=== PATIENT | male | born 1950 | race Caucasian/White ===

== ENCOUNTER 2017-09-21 02:58 | Emergency (ER) | payer MEDICARE, OTHER, SELFPAY ==
[2017-09-21 03:00] VITALS: BP 172/102; PULSE 78; RESP 18; TEMP 36.7; O2SAT 97; BMI 32.7
--- NOTE | 2017-09-21 03:20 | RAD_ITS ---
STUDY: X-RAY - RIGHT SHOULDER REASON FOR EXAM: Male, 67 years old. Upper arm pain after pulling on a door. TECHNIQUE: 4 view(s) of the shoulder. COMPARISON: None. FINDINGS: Normal glenohumeral articulation. There is possible minimal widening of the cortical clavicular joint without displacement Normal acromion. Normal humeral head and visualized proximal humerus. The soft tissue structures are unremarkable. Normal visualized pulmonary apex. RAD/Shoulder min 2 Views IMPRESSION: No demonstrated acute fracture. Questionable minimal widening of the acromioclavicular joint. Electronically Signed: Jass Coleman MD at 3:47 EDT Tel , Service support ,
[2017-09-21] MEDS: oxyCODONE 5 MG Tablet PO (04:06)
--- NOTE | 2017-09-21 04:17 | ED.DCSUM_ITS ---
- ER Visit Summary Date of Service: 09/21/17 Chief Complaint: Right shoulder injury History of Present Illness: The patient is a 67 M right shoulder injury 2 days ago. States was holding onto his tractor is trying to close the door with his left arm. [place] a pull in his shoulder. Increasing pain, worse with movement. Pain down to the elbow. No neck pain or injuries. History of slight injury a month ago that was self-limiting. Using Advil, last dose 8 PM. No improvement. No history of gastric ulcers or kidney injuries. Does not take any daily medications. Physical Examination: General: Alert and oriented ?3, no acute distress HEENT: Normocephalic, atraumatic. Moist mucosa membranes Neck: supple, nontender. Negative Spurling's Cardiovascular: Regular rate and rhythm, no murmurs Respiratory: Normal breath sounds, symmetric, no distress Abdomen: Soft, nontender, nondistended Extremities: Right upper extremity: Tenderness in proximal shoulder, pain worse with shoulder flexion and shoulder abduction. Able to internally and externally rotate with no difficulties. No deformities. No elbow pain. Skin intact. No AC pain. Neuro: no focal neurological deficits. Test Results: Right shoulder: No fracture or dislocation. Emergency Department Course and Treatment: Patient discomfort, given oxycodone. X-ray negative. Per radiology concerns widening AC joint region, he is nontender in this region. Exam discussed with patient concerns for rotator cuff injury. Exercises shown to help with rehab. He will continue Advil every 6 hours. He will be given a short course of Percocet to take at night. He is not to operate heavy machinery while on this medication. He is also given follow-up with orthopedics for outpatient evaluation. Treatment Plan: [] Disposition: Discharge Impression: 1. Right rotator cuff muscle strain This note was generated with [employer] dictation software. It may contain incorrect words, spelling, and punctuation that were not noted in review of the chart prior to signing ED Disposition - Plan for ED Patient: Disposition: Home or Assisted Living Chief Complaint: Upper Extremity Injury Diagnosis: Rotator cuff strain Instructions: ED Torn Rotator Cuff Prescriptions: Oxycodone HCl/Acetaminophen [Percocet 5/325] 1 tablet PO Q6H PRN PRN 3 Days #12 tablet PRN Reason: Pain Referrals: Celestino Gutierres [Primary Care Provider] - Alessandro Flood MD [STAFF PHYSICIAN] - 3-5 Days
[2017-09-21 04:24] VITALS: RESP 18
== END 2017-09-21 04:25 | disposition home or self-care (01) ==
PROVIDERS: Emergency Provider Emergency Medicine; Family Provider Family Medicine; PCP Family Medicine
DX: S46.011A Strain of muscle(s) and tendon(s) of the rotator cuff of right shoulder, initial encounter (principal); X50.1XXA Overexertion from prolonged static or awkward postures, initial encounter; Y93.89 Activity, other specified; Y92.008 Other place in unspecified non-institutional (private) residence as the place of occurrence of the external cause; Y99.8 Other external cause status
CPT/HCPCS: 73030; 99283

== ENCOUNTER → 2020-09-02 08:19 | Outpatient (CLI) | payer MEDICARE, OTHER, SELFPAY ==
--- NOTE | 2020-09-02 08:25 | RAD_ITS ---
STUDY: X-RAY - ESOPHAGUS (BARIUM SWALLOW) WITH FLUOROSCOPY REASON FOR EXAM: Male, 70 years old. DYSPHAGIA TECHNIQUE: 16 view(s) of the esophagus were obtained following swallowing of barium. FLUOROSCOPY TIME (if supplied): (0:36) minutes/seconds COMPARISON: None. FINDINGS: There is no demonstrated esophageal foreign body. There is no demonstrated stricture or mucosal abnormality. Small hiatal hernia with gastroesophageal reflux. The patient ingested a 12 mm tablet of barium without any difficulty. There is atherosclerotic calcification of the aortic arch with tortuosity of the descending aorta. Normal visualized pulmonary parenchyma. Normal visualized osseous structures of the thorax. RAD/Esophagus Dual Contrast IMPRESSION: Small hiatal hernia with gastroesophageal reflux. Electronically Signed: Blaise Stein MD at 9:56 EDT , Service support ,
== END ==
PROVIDERS: PCP Family Medicine; Referring Provider Internal Medicine Gastroenterology; Visit Provider Internal Medicine Gastroenterology
DX: R13.10 Dysphagia, unspecified (principal)
CPT/HCPCS: 74221

== ENCOUNTER → 2021-03-31 08:41 | Outpatient (CLI) | payer MEDICARE, OTHER, SELFPAY ==
--- NOTE | 2021-03-31 08:43 | RDU_ITS ---
Reason For Study: HTN Right Renal Artery Left Renal Artery Right renal artery ostium 80.9/21.3 Left renal artery ostium 73.1/16.1 RSV/EDV. PSV/EDV. Right renal artery proximal Left renal artery proximal PSV/EDV 80.9/26.4 PSV/EDV. 78.2/18.7 . Right renal artery mid 86.0/29.0 Left renal artery mid 66.1/27.8 PSV/EDV. PSV/EDV . Right renal artery distal Left renal artery distal 73.4/27.8 114.5/37.7 PSV/EDV. PSV/EDV. Right RAR 1.2. Left RAR .8. Right Renal Parenchyma Left Renal Parenchyma Upper Pole Medula 29.9/12.3 Left upper pole medulla 23.2/10.1 PSV/EDV. PSV/EDV . Right upper pole medulla EDR .41 . Left upper pole medulla EDR .43 . Right upper pole medulla R.I. .59 . Left upper pole medulla R.I. .57 . Upper Homar Cortx 23.3/6.8 PSV/EDV. UP Cortex 15.7/7.5 PSV/EDV. Right upper pole cortex EDR .29 . Left upper pole cortex EDR .48 . Right upper pole cortex R.I. .71 . Left upper pole cortex R.I. .52 . Right lower Pole medulla 20.0/7.9 Left lower Pole medulla 23.0/7.5 PSV/EDV . PSV/EDV . Right lower pole medulla EDR .4 . Left lower pole medulla EDR .33 . Right lower pole medulla R.I. .6 . Left lower pole medulla R.I. .67 . Lower Pole Cortex 15.6/6.8 PSV/EDV. Lower Pole Cortx 15.7/7.5 PSV/EDV. Right lower pole cortex EDR .44 . Left lower pole cortex EDR .48 . Right lower pole cortex R.I. .56 . Left lower pole cortex R.I. .52 . Right Renal Hilar Left Renal Hilar Right Hilar avg 50.7/15.6 PSV/EDV. LT Hilar avg 35.8/16.6 PSV/EDV . Right hilar acceleration time 50 Left hilar acceleration time 30 m/sec. m/sec. Right Renal Dimensions Left Renal Dimensions Right kidney size 11.34 cm . Left kidney size 12.5 cm . Right cortical dimension 1.83 cm . Left cortical dimension 1.86 cm . Hypoechoic areas measuring 1.46 x Hypoechoic area measuring 3.26 x 1.94 cm and a second area measuring 2.58 cm. Area appears to be 2.81 x 2.2cm. Areas appear to be nonvascular. nonvascular. Aorta Proximal abdominal aorta 1.82 x 1.82 cm . Proximal abdominal aorta peak systolic velocity is 94.8 cm/sec . Distal abdominal aorta 1.54 x 1.64 cm . Distal abdominal aorta peak systolic velocity is 90.4 cm/sec . Normal renal veins bilat. VL/Renal Artery Duplex Ultrasound Interpretation Summary Dimensions of the intra-abdominal aorta appear normal, without evidence of aneu rysmal dilatation. Renal artery velocities are bilaterally normal. Acceleration times are normal b ilaterally. Renal- aortic ratios are also bilaterally normal. There is no evidence of hemodynamica lly significant renal artery stenosis on either side. Renovascular resistance appears to be bilateral ly normal . The right cortical dimension is increased. The left cortical dimension is increased. Kidn eys are normal in size bilaterally, though the left kidney is more than one centimeter larger lily n the right kidney. Non-vascular, hypoechoic structures are noted in the kidneys bilaerally, with d imensions as documented above. These may represent renal cysts. Clinical correlation is advi sed. Ordering Physician: Celestino Gutierres Performed By: Moises Gordon, RVT
== END ==
PROVIDERS: PCP Family Medicine; Visit Provider Family Medicine
DX: I10 Essential (primary) hypertension (principal)
CPT/HCPCS: 93975

== ENCOUNTER → 2021-05-25 07:44 | Outpatient (CLI) | payer MEDICARE, OTHER, SELFPAY ==
--- NOTE | 2021-05-25 07:48 | CT_ITS ---
STUDY: CT LEFT LOWER EXTREMITY WITHOUT CONTRAST REASON FOR EXAM: Left knee pain, left knee osteoarthritis, surgical planning. TECHNIQUE: Transaxial CT imaging of the lower extremity was performed. Coronal and sagittal images were reformatted. Individualized dose optimization techniques were used for this CT. COMPARISON: None. FINDINGS: Knee: There are marginal osteophytes, mild subchondral eburnation and moderate to severe joint space narrowing of the medial femorotibial compartment (coronal reconstruction 28). There are small marginal osteophytes of the lateral femorotibial compartment with preservation of joint space. There are small marginal osteophytes and mild to moderate joint space narrowing of the patellofemoral articulation (axial image 323). There is mild arthrosis of the proximal tibiofibular articulation (sagittal reconstruction 51). There is a small joint effusion. The quadriceps tendon is grossly normal. The patellar tendon is grossly normal. Normal Hoffa''s fat pad. There is a popliteal cyst (sagittal reconstruction 20). There are intra-articular bodies (coronal reconstructions 21, 22, 34-39). There is vascular calcification. Hip: There is joint space narrowing of the superior medial left hip (coronal reconstruction 48). There is chondrocalcinosis in the labrum (coronal reconstructions 45-51). Ankle: Normal tibiotalar and posterior subtalar articulations. There is a posterior calcaneal enthesophyte. CT/Extremity Lower without Contra IMPRESSION: Left knee osteoarthritis. Electronically Signed: Axel Palacio MD at 14:49 EST Tel , Service support ,
--- NOTE | 2021-05-25 07:48 | CT_ITS ---
STUDY: CT RIGHT LOWER EXTREMITY WITHOUT CONTRAST REASON FOR EXAM: Right knee pain, right knee osteoarthritis, surgical planning. TECHNIQUE: Transaxial CT imaging of the lower extremity was performed. Coronal and sagittal images were reformatted. Individualized dose optimization techniques were used for this CT. COMPARISON: None. FINDINGS: Knee: There are marginal osteophytes, mild pressure erosive changes and severe joint space narrowing of the medial femorotibial compartment (coronal reconstruction 34). There are small marginal osteophytes with preservation of joint space of the lateral femorotibial compartment. There are marginal osteophytes and [id number] joint space narrowing of the patellofemoral compartment (axial image 317). Normal proximal tibiofibular articulation. There is a small joint effusion. The quadriceps tendon is grossly normal. The patellar tendon is grossly normal. Normal Hoffa''s fat pad. There are intra-articular bodies (sagittal reconstructions 27-32, 37-46). There is vascular calcification. Hip: There is mild joint space narrowing of the right hip (coronal reconstruction 56). Ankle: There is an osteochondral lesion in the medial talar dome (coronal reconstructions 29-31). Normal posterior subtalar talonavicular articulations. There is a small posterior calcaneal enthesophyte. CT/Extremity Lower without Contra IMPRESSION: Right knee osteoarthritis. Electronically Signed: Axel Palacio MD at 14:48 EST Tel , Service support ,
[2021-05-25 09:54] LABS: Absolute Neutrophil Count 4.6 X10^3/uL (2.0-7.7); Basophil# 0.05 X10^3/uL; Basophil% 0.7 % (0-1); Eosinophil# 0.08 X10^3/uL; Eosinophils% 1.1 % (0-5); Hematocrit 45.3 % (40-54); Lymphocyte % 24.3 % (19-41); Mean Corp Hgb Conc 33.1 g/dL (32-36); Mean Corpuscular Hgb 31.5 pg (27.0-32.0); Mean Corpuscular Volume 95.2 fL (80-94); Mean Platelet Vol. 9.1 fl (6.2-12.0); Monocyte# 0.53 X10^3/uL; Monocyte% 7.6 % (0-10); NRBC Flagged by Analyzer 0 % (0-5); Neutrophil # 4.64 X10^3/uL (2.7-7.7); Neutrophil % 66.2 % (47-70); Platelet Count 259 K/mm3 (150-450); RBC Distribution Width CV 13.1 % (11.6-14.6); RBC Distribution Width SD 46.3 fl (35.1-43.9); Red Blood Count 4.76 M/mm3 (4.6-6.2)
[2021-05-25 10:18] LABS: Hemoglobin A1c 5.4 % (3.8-5.6)
[2021-05-25 10:22] LABS: Anion Gap 6 (5-15); BUN 26 mg/dL (7-18); BUN/Creat Ratio 20.6 RATIO (10-20); Chloride 106 mmol/L (98-107); Creatinine, Serum 1.26 mg/dL (0.70-1.30); EST Glomerular Filtration Rate 60 mL/min (>60); Est Glom Filt Rate - Afr Amer 73 mL/min (>60); Glucose 91 mg/dL (74-106); Potassium 4.5 mmol/L (3.5-5.1); Sodium Level 138 mmol/L (136-145)
[2021-05-25 14:02] LABS: Probe Check PASS; Specimen Processing Control PASS
== END ==
PROVIDERS: PCP Family Medicine; Referring Provider Orthopaedic Surgery; Visit Provider Orthopaedic Surgery
DX: Z01.810 Encounter for preprocedural cardiovascular examination (principal); M21.162 Varus deformity, not elsewhere classified, left knee; M21.161 Varus deformity, not elsewhere classified, right knee; M17.0 Bilateral primary osteoarthritis of knee
CPT/HCPCS: 36415; 73700; 80048; 83036; 85025; 87635; 93005; C9803; U0005; U0003

== ENCOUNTER → 2021-06-08 | Outpatient (CLI) | payer MEDICARE, OTHER, SELFPAY ==
--- NOTE | 2021-06-08 11:00 | KNEE_PTH ---
PATIENT: BRANDO ABRAMS [facility] U#:[id number] AGE/SX: 70/M ROOM: RE06/08/[address]: Dr. Silvestre Minaya DO : 1950 BED: DIS: 06/08/2021 SPEC #: [id number] RECD: 06/08/21 15:08 STATUS: CHARANJIT REGuerita #: [id number] LILIA: 06/08/21 11:[address]: Silvestre Minaya DEPT: SURGICAL PATHOLOGY RECD BY: Soni Allison ENTERED: 06/09/21 12:44 SP TYPE: TOTAL KNEE OTHR DR: Dr. Celestino Gutierres, [facility] Tissues: Knee, NOS Procedures: Decalcification bone/plaque Surgery Specimen Level IV HEADER OPERATION: Robotic assisted right total knee PRE-OP DIAGNOSIS: Unilateral primary osteoarthritis TISSUE SUBMITTED: Bone and soft tissue right knee MICROSCOPIC DIAGNOSIS Bone and soft tissue, right knee, total knee replacement/resection: Pieces of bone with degenerative osteoarthritic changes. Fibroadipose tissue, fibroconnective tissue and reactive synovial tissue. ZACHARY:rod 06/15/2021 MICROSCOPIC DESCRIPTION Slides are reviewed. GROSS DESCRIPTION Received is one container designated bone and soft tissue right knee. The specimen consists of multiple fragments of huynh-yellow bone measuring in aggregate 11 x 10 x 4 cm. Also in the specimen container are multiple fragments of yellow-white soft tissue measuring in aggregate 10 x 9 x 4 cm. A number of bony fragments contain articular surfaces consistent with tibial plateau and femoral condyle and displaying prominent osteophyte formation, eburnation, and bone erosion. Airbrush Artist Photography sections are submitted in two cassettes as follows: 1 - soft tissue, 2 - bone after decalcification. / ZACHARY:rod 06/09/21 TC:5 [facility]: [id number], [id number]
== END | disposition home or self-care (01) ==
LOC: LABSPEC 15:36
PROVIDERS: PCP Family Medicine; Visit Provider Orthopaedic Surgery
DX: M17.11 Unilateral primary osteoarthritis, right knee (principal)
CPT/HCPCS: 88305; 88311

== ENCOUNTER 2021-07-11 11:59 | Outpatient (CLI) | payer MEDICARE, OTHER, SELFPAY ==
[2021-07-11 14:09] LABS: Hemoglobin 13.5 g/dL (13.0-16.5); Mean Corp Hgb Conc 32.1 g/dL (32-36); Mean Corpuscular Hgb 30.7 pg (27.0-32.0); Mean Corpuscular Volume 95.5 fL (80-94); Mean Platelet Vol. 9.4 fl (6.2-12.0); Platelet Count 312 K/mm3 (150-450); RBC Distribution Width CV 13.6 % (11.6-14.6); RBC Distribution Width SD 47.8 fl (35.1-43.9); White Blood Count 8.6 K/mm3 (4.4-11.0)
[2021-07-11 14:32] LABS: Anion Gap 6 (5-15); BUN 22 mg/dL (7-18); BUN/Creat Ratio 13.7 RATIO (10-20); Calcium,Total 8.8 mg/dL (8.5-10.1); Chloride 108 mmol/L (98-107); Creatinine, Serum 1.61 mg/dL (0.70-1.30); EST Glomerular Filtration Rate 46 mL/min (>60); Est Glom Filt Rate - Afr Amer 55 mL/min (>60); Glucose 155 mg/dL (74-106); Potassium 4.1 mmol/L (3.5-5.1); Sodium Level 140 mmol/L (136-145)
[2021-07-11 14:37] LABS: Hemoglobin A1c 5.4 % (3.8-5.6)
== END 2021-07-11 23:59 | disposition short-term general hospital (02) ==
LOC: LAB 12:02
PROVIDERS: Physician Assistant; PCP Family Medicine; Visit Provider Orthopaedic Surgery
DX: Z01.818 Encounter for other preprocedural examination (principal); R73.03 Prediabetes
CPT/HCPCS: 36415; 80048; 83036; 85027

== ENCOUNTER 2021-07-20 15:19 | Outpatient (CLI) | payer MEDICARE, OTHER, SELFPAY ==
--- NOTE | 2021-07-20 | KNEE_PTH ---
PATIENT: BRANDO ABRAMS LOC: [facility] U#:[id number] AGE/SX: 70/M ROOM: RE07/20/[address]: Dr. Silvestre Minaya DO : 1950 BED: DIS: 07/20/2021 SPEC #: [id number] RECD: 07/20/21 15:17 STATUS: CHARANJIT REGuerita #: [id number] LILIA: 07/20/21 00:[address]: Silvestre Minaya DEPT: SURGICAL PATHOLOGY RECD BY: Moses Keller ENTERED: 07/21/21 11:00 SP TYPE: TOTAL KNEE OTHR DR: Dr. Celestino Gutierres, [facility] Tissues: Knee, NOS Procedures: Decalcification bone/plaque Surgery Specimen Level IV HEADER OPERATION: Robotic assisted left total knee arthroplasty PRE-OP DIAGNOSIS: Primary osteoarthritis left knee TISSUE SUBMITTED: Bone and soft tissue left knee MICROSCOPIC DIAGNOSIS Bone and soft tissue, left knee, total knee replacement/resection: Pieces of bone with degenerative osteoarthritic changes. Fibroadipose tissue, fibroconnective tissue and reactive synovial tissue. ZACHARY:rod 07/25/2021 MICROSCOPIC DESCRIPTION Slides are reviewed. GROSS DESCRIPTION Received is one container designated bone and soft tissue left knee. The specimen consists of multiple fragments of huynh-yellow bone measuring in aggregate 10 x 9 x 3 cm. Also in the specimen container are multiple fragments of yellow-white soft tissue measuring in aggregate 11 x 8 x 3 cm. A number of bony fragments contain articular surfaces consistent with tibial plateau and femoral condyle and displaying prominent osteophyte formation, eburnation, and bone erosion. Field Applications Specialist sections are submitted in two cassettes as follows: 1 - soft tissue, 2 - bone after decalcification. / ZACHARY:rod 07/21/2021 TC:5 [facility]: [id number], [id number]
== END 2021-07-20 23:59 | disposition home or self-care (01) ==
LOC: LABSPEC 15:21
PROVIDERS: PCP Family Medicine; Visit Provider Orthopaedic Surgery
DX: M17.12 Unilateral primary osteoarthritis, left knee (principal)
CPT/HCPCS: 88305; 88311

== ENCOUNTER 2021-09-29 09:50 | Outpatient (CLI) | payer MEDICARE, OTHER, SELFPAY ==
--- NOTE | 2021-09-29 10:06 | ECHOD_ITS ---
Reason For Study: PVC'S Procedure This was a 2D Doppler, Color Flow transthoracic echocardiogram. Exam performed in department. Left Ventricle Normal LV size. The estimated ejection fraction is 65 %. No evidence for diastolic dysfunction. No regional wall motion abnormalities noted. Right Ventricle Normal RV size. Normal systolic function. Atria Normal left atrium. Normal right atrium. No doppler evidence for ASD. Mitral Valve There is no mitral valve stenosis. No mitral valve insufficiency. Tricuspid Valve There is no tricuspid stenosis. Unable to estimate RV systolic pressure due to inadequate jet, pulmonary artery pressure probably normal. Aortic Valve Trisinus/trileaflet aortic valve. There is no aortic stenosis. No aortic valve insufficiency. Pulmonic Valve There is no pulmonic valvular stenosis. No pulmonic valve insufficiency. Great Vessels Normal aortic root. Pericardium/Pleural No pericardial effusion. MMode/2D Measurements & Calculations LVIDd: 4.5 cm IVSd: 0.81 cm Ao root diam: 3.3 cm LVIDs: 3.1 cm LVPWd: 0.99 cm RVDd: 3.8 cm FS: 31.4 % LAV(MOD-bp): 46.2 ml LVAd ap4: 39.9 cm2 SV(MOD-sp4): 86.1 ml LAV(MOD-bp) Indexed: 21.4 ml/m2 LVLd ap4: 9.1 cm LAV(MOD-sp2): 47.5 ml EDV(MOD-sp4): 144.1 ml LAV(MOD-sp4): 42.1 ml EDV(sp4-el): 148.6 ml LVAs ap4: 22.6 cm2 LVLs ap4: 7.4 cm ESV(MOD-sp4): 58.1 ml ESV(sp4-el): 58.5 ml EF(MOD-sp4): 59.7 % EF(sp4-el): 60.6 % SV(sp4-el): 90.1 ml LA A4 area: 17.4 cm2 LA dimension(2D): 3.5 cm RA A4 area: 13.9 cm2 Time Measurements MV dec time: 0.28 sec Doppler Measurements & Calculations MV E max daniel: 77.0 cm/sec Lat Peak E' Daniel: 9.8 cm/sec Med Peak E' Daniel: 6.3 cm/sec MV A max daniel: 108.1 cm/sec E/E' lat: 7.9 E/E' med: 12.3 MV E/A: 0.71 Ao V2 max: 155.8 cm/sec LV V1 max: 136.9 cm/sec PA V2 max: 109.5 cm/sec Ao max P.7 mmHg LV V1 max P.5 mmHg ECHO/Echo Complete Interpretation Summary The estimated ejection fraction is 65 %. No evidence for diastolic dysfunction. Ordering Physician: Celestino Khanna Referring Physician: CELESTINO KHANNA Performed By: Maddi Cherry RDCS
== END 2021-09-29 23:59 | disposition home or self-care (01) ==
PROVIDERS: PCP Family Medicine; Visit Provider Family Medicine
DX: I49.3 Ventricular premature depolarization (principal)
CPT/HCPCS: 93306

== ENCOUNTER 2025-01-19 05:54 | Day surgery (SDC) | payer MEDICARE, OTHER, SELFPAY ==
--- NOTE | 2025-01-05 16:31 | PAT.ANE_ITS ---
Pre-Assessment Diagnosis/Proposed Procedure Planned Operative Procedure(s): ROBOTIC BILATERAL INGUINAL HERNIA WITH MESH Anesthesia History Anesthesia History - qi specialist: Anesthesia History - qi specialist Hx Hospitalization No 01/05/25 13:09 Any Problems With Anesthesia No 01/05/25 13:09 Cholinesterase deficiency No 01/05/25 13:09 You/Your Family Experience No 01/05/25 13:09 fever (hyperthermia) with Relationship Recent Exposure to Contagious Disease Does patient have nerve No 01/05/25 13:09 stimulator Patient instructed to have device shut off --Does patient have Pacemaker or ICD? When Was Last Pacemaker Check QUESTION #4 FULL TEXT: You/Your Family Experience fever (hyperthermia) with Anesthesia Last Oral Intake Last Oral intake: Last Oral Intake NPO since Meds taken in AM with sips of water? Meds patient instructed to take am of surgery PONV PONV - qi specialist: PONV - qi specialist Female No 01/05/25 13:09 HX of Motion Sickness No 01/05/25 13:09 HX of N/V After Surgery No 01/05/25 13:09 Non-Smoker Yes 01/05/25 13:09 Duration of Surgery greater Yes 01/05/25 13:09 than 60 minutes Number of Risk Factors 2 01/05/25 13:09 PONV Score Moderate Risk 01/05/25 13:09 Height & Weight Height & Weight: Anesthesia: Height & Weight Height 6 ft 10/21/24 09:13 Respiratory Assessment Respiratory Assessment - qi specialist: Respiratory Tract Infection Hx - qi specialist Hx Respiratory Tract Infection No 01/05/25 13:09 STOP Sleep Apnea STOP Sleep Apnea - qi specialist: STOP Sleep Apnea - qi specialist Hx Hypertension Yes: CONTROLLED WITH MEDS 01/05/25 13:09 Hx Sleep Apnea Yes 01/05/25 13:09 CPAP Yes 01/05/25 13:09 BIPAP No 01/05/25 13:09 Do you snore loudly (louder than talking or can be heard Do you often feel tired/ fatigued/ sleepy during daytime? Has anyone observed you stop breathing during sleep? STOP Results Positive 01/05/25 13:09 QUESTION #5 FULL TEXT : Do you snore loudly (louder than talking or can be heard through closed doors)? Tobacco Use History Tobacco Use History - qi specialist: Tobacco Use History - qi specialist Tobacco Use Smoking Status Never smoker 01/05/25 13:09 Hx Tobacco Use No 01/05/25 13:09 Years Smoking Packs Smoked per Day Smoking Cessation Date was within the last 15 years Hx Smoking Cessation Date Hx Smoking Cessation Counseling Hematologic Medial History Hematologic Hx - qi specialist: Hematologic Medical Hx - forest economist Hx of Blood Transfusion No 01/05/25 13:09 Hx of Transfusion in last 3 No 01/05/25 13:09 Months Date of Last Transfusion (if within last 3 months) Ever experience any problems No 01/05/25 13:09 with transfusion(s)? Specify any problems Hx of Preganancy in last 3 N/A 01/05/25 13:09 Months Nurse Filling Out Transfusion [id number] 01/05/25 13:09 & Questions: Date: 01/05/25 01/05/25 13:09 Time: 13:13 01/05/25 13:09 Patient unable to answer at this time (ie. confused, unrespo /Reproduction History /Reproductive History - qi specialist: /Reproductive Hx- qi specialist Hx Now Gestational Age (in weeks): EDC: Hx Hx Para Hx Section SAB PFSH Medical History (Updated 01/05/25 @ 13:16 by Floyd Salinas) Wears glasses Injury of head and neck Hypertension History of echocardiogram Gastric reflux Smoker Non-smoker CPAP (continuous positive airway pressure) dependence Sleep apnea Bilateral inguinal hernia without obstruction or gangrene Left inguinal hernia Home Medications ?Medication ?Instructions ?Recorded ?Last Taken ?Type amlodipine 10 mg tablet 10 mg PO QDAY 10/21/24 Unkno wn History metoprolol succinate 50 mg 50 mg PO QDAY 10/21/24 Unkn own History tablet,extended release 24 hr pantoprazole 40 mg tablet,delayed 40 mg PO QDAY Unknown History release Allergy/AdvReac Type Severity Reaction Status Date / Time No Known Allergies Allergy Verified 01/05/25 13:08 Surgical History H/O umbilical hernia repair Social History Smoking Status: Never smoker alcohol intake: never substance use type: does not use Audit: Pertinent Findings Pertinent Findings Echo (EF%) pertinent findings: 09/29/2021. Ejection fraction 65%. No evidence for diastolic dysfunction. Recommendation Anesthesia Recommendation Anesthesia recommendation: OPTIMIZED for anesthesia
--- NOTE | 2025-01-05 16:31 | PAT.ANE_ITS ---
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 When Was Last Pacemaker Check QUESTION #4 FULL TEXT: You/Your Family Experience fever (hyperthermia) with Anesthesia Last Oral Intake Last Oral intake: Last Oral Intake NPO since Meds taken in AM with sips of water? Meds patient instructed to take am of surgery PONV PONV - mattress stripper: PONV - mattress stripper Female No 01/05/25 13:09 HX of Motion Sickness No 01/05/25 13:09 HX of N/V After Surgery No 01/05/25 13:09 Non-Smoker Yes 01/05/25 13:09 Duration of Surgery greater Yes 01/05/25 13:09 than 60 minutes Number of Risk Factors 2 01/05/25 13:09 PONV Score Moderate Risk 01/05/25 13:09 Height & Weight Height & Weight: Anesthesia: Height & Weight Height 6 ft 10/21/24 09:13 Respiratory Assessment Respiratory Assessment - mattress stripper: Respiratory Tract Infection Hx - mattress stripper Hx Respiratory Tract Infection No 01/05/25 13:09 STOP Sleep Apnea STOP Sleep Apnea - mattress stripper: STOP Sleep Apnea - mattress stripper Hx Hypertension Yes: CONTROLLED WITH MEDS 01/05/25 13:09 Hx Sleep Apnea Yes 01/05/25 13:09 CPAP Yes 01/05/25 13:09 BIPAP No 01/05/25 13:09 Do you snore loudly (louder than talking or can be heard Do you often feel tired/ fatigued/ sleepy during daytime? Has anyone observed you stop breathing during sleep? STOP Results Positive 01/05/25 13:09 QUESTION #5 FULL TEXT : Do you snore loudly (louder than talking or can be heard through closed doors)? 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 Specify any problems Hx of Preganancy in last 3 N/A 01/05/25 13:09 Months Nurse Filling Out Transfusion [email or web address] 01/05/25 13:09 & Questions: Date: 01/05/25 01/05/25 13:09 Time: 13:13 01/05/25 13:09 Patient unable to answer at this time (ie. confused, unrespo /Reproduction History /Reproductive History - mattress stripper: /Reproductive Hx- mattress stripper Hx Now Gestational Age (in weeks): EDC: Hx Hx Para Hx Section SAB PFSH Medical History (Updated 01/05/25 @ 13:16 by Floyd Salinas) Wears glasses Injury of head and neck Hypertension History of echocardiogram Gastric reflux Smoker Non-smoker CPAP (continuous positive airway pressure) dependence Sleep apnea Bilateral inguinal hernia without obstruction or gangrene Left inguinal hernia Home Medications ?Medication ?Instructions ?Recorded ?Last Taken ?Type amlodipine 10 mg tablet 10 mg PO QDAY 10/21/24 Unkno wn History metoprolol succinate 50 mg 50 mg PO QDAY 10/21/24 Unkn own History tablet,extended release 24 hr pantoprazole 40 mg tablet,delayed 40 mg PO QDAY Unknown History release Allergy/AdvReac Type Severity Reaction Status Date / Time No Known Allergies Allergy Verified 01/05/25 13:08 Surgical History H/O umbilical hernia repair Social History Smoking Status: Never smoker alcohol intake: never substance use type: does not use Audit: Pertinent Findings Pertinent Findings Echo (EF%) pertinent findings: 09/29/2021. Ejection fraction 65%. No evidence for diastolic dysfunction. Recommendation Anesthesia Recommendation Anesthesia recommendation: OPTIMIZED for anesthesia
[2025-01-19] VITALS (9 sets, daily range): BP systolic 123–153; BP diastolic 74–88; PULSE 60–76; RESP 14–16; TEMP 36.2–36.9; O2SAT 92–98; BMI 29.9
--- OUTSIDE RECORDS SUMMARY | 2025-01-19 05:57 | XMS RPT_ITS | CCD ---
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 Femi Ortiz DO Primary Care Provider [phone] Dr. Femi Ortiz DO Referring Provider Diamond PEREA, Dr. Farshad Gallardo Attending Provider FEMI ORTIZ Primary Care Unavailable ANGEL, FEMI Attending Unavailable ANGEL, FEMI Attending Unavailable ANGEL, FEMI Primary Care Unavailable ANGEL, FEMI Attending Unavailable ANGEL, FEMI Primary Care Unavailable Angel, Femi Referring Unavailable Angel, Femi Primary Care Unavailable Farshad Fields Attending Unavailable Farshad Fields Attending Unavailable Femi Ortiz Primary Care Unavailable Farshad Fields Referring Unavailable Medications Current Medications Medication Drug Class(es) Dates Sig (Normalized) Sig (Original) amLODIPine 10 mg oral tablet (20 sources) Dihydropyridine Calcium Channel Becky Start: 2024 take 1 tablet by mouth once daily amLODIPine (Norvasc) 10 MG tablet TAKE ONE TABLET BY MOUTH EVERY DAY 90 tablet 1 2024 Active Start: 09-26-2022 End: 07-02-2024 take 1 tablet by mouth once daily amLODIPine (Norvasc) 10 MG tablet Take 1 tablet (10 mg) by mouth daily. 90 tablet 1 01/04/2024 07/02/2024 Active Start: 05-21-2022 End: 07-27-2022 take 1 tablet by mouth once daily amLODIPine (Norvasc) 10 MG tablet Take 1 tablet (10 mg) by mouth daily. 30 tablet 2 06/27/2022 07/27/2022 Active Start: 01-18-2021 take 1 tablet by lalito th once daily amLODIPine (NORVASC) 5 MG tablet Indications: Essential hypertension Take 1 tablet by mouth daily 90 tablet 0 01/18/2021 Active 24 hr metoprolol succinate 50 mg extended release oral tablet (20 sources) beta-Adrenergic Becky Start: 10-24-2022 End: 2024 take 1 tablet by mouth once daily in the morning metoprolol succinate XL (Toprol-XL) 50 MG 24 hr tablet TAKE ONE TABLET BY MOUTH EVERY MORNING 90 tablet 1 2024 Active Start: 04-19-2022 End: 07-24-2022 take 1 tablet by mouth once daily in the morning metoprolol succinate XL (Toprol-XL) 50 MG 24 hr tablet Take 50 mg by mouth every morning. 0 04/19/2022 07/24/2022 Discontinued (Reorder) pantoprazole 40 mg delayed release oral tablet (20 sources) Proton Pump Inhibitor Start: 08-06-2023 take 1 tablet by mouth once daily before breakfast pantoprazole (ProtoNix) 40 MG EC tablet Take 40 mg by mouth every morning (before breakfast). 08/06/2023 Active Start: 01-03-2021 take 1 tablet by lalito th once daily at breakfast pantoprazole (PROTONIX) 40 MG tablet TAKE 1 TABLET BY MOUTH ONCE DAILY BEFORE MORNING MEAL 0 01/03/2021 Active Completed/Discontinued Medications Medication Drug Class(es) Dates Sig (Normalized) Sig (Original) acetaminophen 325 mg / oxyCODONE hydrochloride 5 mg oral tablet (1 source) Opioid Agonist Start: 09-21-2017 End: 10-21-2024 Oxycodone-Acetaminop hen 1 TABLET tablet Discontinued 1 {tbl} PO EVERY 6 HOURS NEEDED as needed for Pain 12 September 21, 2017 12:00am October 21, 2024 9:14am Arexvy 120 MCG/0.5ML reconstituted suspension (4 sources) Start: 06-25-2024 End: 12-31-2024 Arexvy 120 MCG/0.5ML reconstituted suspension Inject 0.5 mL into the shoulder, thigh, or buttocks Once. 06/25/2024 12/31/2024 Discontinued (Therapy completed) Start: 06-25-2024 Arexvy 120 MCG /0.5ML reconstituted suspension Inject 0.5 mL into the shoulder, thigh, or buttocks Once. 06/25/2024 Active predniSONE 10 mg oral tablet (3 sources) Start: 04-11-2023 End: 07-05-2023 predniSONE (Deltasone) 10 MG tablet 5 qday for 3 days, then 3 qday for 3 days, then one qday till gone 27 tablet 0 04/11/2023 07/05/2023 Discontinued (Therapy completed) Problems Active Problems Problem Classification Problem Date Documented Da te Episodic/Chronic Abdominal hernia (20 sources) Left inguinal hernia ; Translations: [Unilateral inguinal hernia, without obstruction or gangrene, not specified as recurrent] Onset: 5 10-13-2024 Episodic Disorders of lipid metabolism (20 sources) Hypercholesterolemia; Translations: [Pure hypercholesterolemia, unspecified] Onset: 3 12-28-2022 Chronic Esophageal disorders (16 sources) Gastroesophageal reflux disease without esophagitis; Translations: [Gastro-esophageal reflux disease without esophagitis] Onset: 5 05-29-2024 Chronic Essential hypertension (20 sources) Essential hypertension; Translations: [Essential (primary) hypertension] Onset: 1 08-17-2020 Chronic Hyperplasia of prostate (20 sources) Benign prostatic hypertrophy with outflow obstruction; Translations: [Benign prostatic hyperplasia with lower urinary tract symptoms] Onset: 8 05-21-2018 Chronic Nonspecific chest pain (3 sources) Chest pain; Translations: [Chest pain, unspecified] 04-03-2023 Episodic Osteoarthritis (20 sources) Primary gonarthrosis, bilateral; Translations: [Bilateral primary osteoarthritis of knee] Onset: 3 12-28-2022 Chronic Other connective tissue disease (1 source) Tendonitis of left shoulder; Translations: [Other enthesopathies, not elsewhere classified] 07-05-2023 Episodic Other diseases of kidney and ureters (1 source) Disorder of kidney and/or ureter; Translations: [Disorder of kidney and ureter, unspecified] Episodic Other diseases of kidney and ureters (20 sources) Renal impairment; Translations: [Disorder of kidney and ureter, unspecified] Onset: 0 Episodic Other gastrointestinal disorders (2 sources) Dysphagia; Translations: [Dysphagia, unspecified] 07-05-2023 Episodic Other lower respiratory disease (3 sources) Cough; Translations: [Acute cough] 04-03-2023 Episodic Other lower respiratory disease (2 sources) Snoring; Translations: [Snoring] 07-05-2023 Episodic Other lower respiratory disease (1 source) Apnea; Translations: [Apnea, not elsewhere classified] 07-05-2023 Episodic Other male genital disorders (20 sources) Male erectile dysfunction, unspecified; Translations: [Impotence of organic origin] Onset: 8 05-21-2018 Chronic Other nervous system disorders (1 source) Bilateral carpal tunnel syndrome; Translations: [Carpal tunnel syndrome, bilateral upper limbs] 07-05-2023 Chronic Other non-traumatic joint disorders (2 sources) Derangement of left shoulder joint; Translations: [Other specific joint derangements of left shoulder, not elsewhere classified] 04-11-2023 Chronic Other non-traumatic joint disorders (2 sources) Disorder of rotator cuff; Translations: [Other instability, left shoulder] 04-11-2023 Episodic Other screening for suspected conditions (not mental disorders or infectious disease) (20 sources) Patient encounter status; Translations: [Encounter for screening for malignant neoplasm of prostate] Onset: 3 Resolved: 5 12-28-2022 Episodic Residual codes; unclassified (20 sources) Obstructive sleep apnea syndrome; Translations: [Obstructive sleep apnea (adult) (pediatric)] Onset: 4 08-29-2023 Chronic Residual codes; unclassified (2 sources) Obstructive sleep apnea (adult) (pediatric); Translations: [Obstructive sleep apnea (adult) (pediatric)] Onset: 4 Chronic Residual codes; unclassified (1 source) Family history of cancer; Translations: [Family history of malignant neoplasm, unspecified] 01-04-2024 Episodic Residual codes; unclassified (13 sources) Family history of prostate cancer; Translations: [Family history of malignant neoplasm of prostate] Onset: 5 12-31-2024 Episodic Residual codes; unclassified (2 sources) Family history of malignant neoplasm of prostate; Translations: [Family history of malignant neoplasm of prostate] Onset: Episodic Sprains and strains (3 sources) Rupture of tendon of biceps; Translations: [Strain of muscle, fascia and tendon of other parts of biceps, left arm, subsequent encounter] 04-11-2023 Episodic Past or Other Problems Problem Classification Problem Date Documented Da te Episodic/Chronic Other diseases of kidney and ureters (20 sources) Cyst of kidney; Translations: [Cyst of kidney, acquired] Onset: 06-11-2019 12-31-2022 Episodic Other nervous system disorders (3 sources) Paresthesia of skin; Translations: [Disturbance of skin sensation] Onset: 05-29-2024 05-29-2024 Episodic Residual codes; unclassified (20 sources) Family history of cancer of colon; Translations: [Family history of malignant neoplasm of digestive organs] Onset: 12-28-2022 12-28-2022 Episodic Skin and subcutaneous tissue infections (20 sources) Abscess; Translations: [Cutaneous abscess, unspecified] Onset: 11-25-2015 Resolved: 12-28-2022 11-25-2015 Episodic Unclassified (1 source) Patient encounter status 05-29-2024 Results Test Name Value Interpretation Reference Range Facility 01-15-2025 29 Addended by: FEMI SCHWAB on: 01/15/2025 07:51 AM Modules accepted: 01-14-2025 29 Addended by: KITA YOUNG on: 01/14/2025 10:32 AM Modules accepted: 01-14-2025 36 ----- Message from Femi Ortiz DO sent at 01/04/2025 1:28 PM EDT ----- CBC normal, glucose and liver function stable. Prostate cancer marker normal. LDL cholesterol has been persistently above goal of less than 100 and due to his hypertension I do recommend beginning a lipid-lowering med like low-dose Crestor. Let me know if he consents to that medicine and he certainly should follow better low-fat meal diet. However patient's creatinine is elevating over the last couple years reflecting renal insufficiency/failure due to longstanding hypertension. However it is worsening and I recommend getting a urinalysis to further evaluate. Of note, he had a normal renal ultrasound done 4 years ago. But I also recommending consulting a bait tier for an opinion on how to slow the progression. Mostly this is done by keeping his hypertension well-controlled, plenty of liquids and do not take OTC NSAIDs. Post a referral to nephrology if he agrees. Lastly, his EKG is normal and he is stable for his hernia surgery. Please send a copy for medical clearance to his general surgeon ----- Message ----- From: Margarita Gardiner MA Sent: 12/31/2024 8:22 AM EDT To: Femi Ortiz DO [place] [id number] 36 Message released to patient as written. Patient's further questions if applicable: Pt called in for clarification on which medications he should try for his ringing ears. Medications given to pt. Pt states he will try these and let provider know if he gets no relief in 2 weeks. Were all questions from office addressed or relayed to the patient from encounter: Yes [address] 01-12-2025 36 Placed call to elda yates. Unable to reach them by phone to discuss lab results. Left detailed message to return call to discuss results. [facility] ----- Message from Femi Ortiz DO sent at 01/12/2025 12:30 PM EDT ----- Referred to bait tier for elevated creatinine. For his ringing in his ears he could try taking Flonase and Claritin daily for 2 weeks in a row and see what happens. If symptoms persist ENT referral. 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 Patient's further questions if applicable: Pt returned call from office. Read Pt message as written. Pt expressed understanding. Pt decline Rx for low dose Crestor at this time states will revisit at next appt (06/01/25). Pt is ok with the referral for nephrology. Pt mega mentioned he has been having some ringing in his ears Pt declined speaking with a nurse but would like to know if anything can be sent to help. Please advise Were all questions from office addressed or relayed to the patient from encounter: No [facility] 01-05-2025 36 Placed call to elda yates. Unable to reach them by phone to discuss lab results. Left detailed message to return call to discuss results. Please release information to patient [facility] ----- Message from Alejandra Robertson sent at 01/05/2025 7:16 AM EDT ----- ----- Message ----- From: Femi Ortiz DO Sent: 01/04/2025 1:31 PM EDT To: [facility] Clinical Can Reforming Machine Operator CBC normal, glucose and liver function stable. Prostate cancer marker normal. LDL cholesterol has been persistently above goal of less than 100 and due to his hypertension I do recommend beginning a lipid-lowering med like low-dose Crestor. Let me know if he consents to that medicine and he certainly should follow better low-fat meal diet. However patient's creatinine is elevating over the last couple years reflecting renal insufficiency/failure due to longstanding hypertension. However it is worsening and I recommend getting a urinalysis to further evaluate. Of note, he had a normal renal ultrasound done 4 years ago. But I also recommending consulting a bait tier for an opinion on how to slow the progression. Mostly this is done by keeping his hypertension well-controlled, plenty of liquids and do not take OTC NSAIDs. Post a referral to nephrology if he agrees. Lastly, his EKG is normal and he is stable for his hernia surgery. Please send a copy for medical clearance to his general surgeon. Send a copy of his lab and EKG to his surgeon as well ----- Message ----- From: Jesus Quijano Lab Results In Sent: 01/01/2025 4:15 AM EDT To: Femi Ortiz DO [facility] 36 faxed [place] [address] Name of caller: Delvis perez Contact phone number: [phone] Relationship to Patient: [facility] Provider: Dr Ortiz Practice: [facility] Chief Complaint/Reason for Call: Caller stated that patient is having surgery at their hospital and they need to get EKG and most recent lab results faxed to them at [phone]. Thank you. Best time of day caller can be reached: Any Patient advised that office/PCP has 24-48 business hours to return their call: No Normal [facility] MR/PAT.ANEon 01-05-2025 MR/PAT.ANE [facility] Medical Records Department [address] [place] [address] PAT - Anesthesia 01/05/25 1631 MR#: [id number] Acct: [id number] Name: BRANDO ABRAMS Rep #: [id number] : 1950 74 From: Chintan Hightower MD PCP: Dr. Femi Ortiz, DO Status:PRE [facility] [place] Race: C [place] [facility] Pre-Assessment Diagnosis/Proposed Procedure Planned Operative Procedure(s): ROBOTIC BILATERAL INGUINAL HERNIA WITH MESH Anesthesia History Anesthesia History - amf mechanic: Anesthesia History - amf mechanic Hx Hospitalization No 01/05/25 13:09 Any Problems With Anesthesia No 01/05/25 13:09 Cholinesterase deficiency No 01/05/25 13:09 You/Your Family Experience No 01/05/25 13:09 fever (hyperthermia) with Relationship Recent Exposure to Contagious Disease Does patient have nerve No 01/05/25 13:09 stimulator Patient instructed to have device shut off --Does patient have Pacemaker or ICD? When Was Last Pacemaker Check QUESTION #4 FULL TEXT: You/Your Family Experience fever (hyperthermia) with Anesthesia Last Oral Intake Last Oral intake: Last Oral Intake NPO since Meds taken in AM with sips of water? Meds patient instructed to take am of surgery PONV PONV - amf mechanic: PONV - amf mechanic Female No 01/05/25 13:09 HX of Motion Sickness No 01/05/25 13:09 HX of N/V After Surgery No 01/05/25 13:09 Non-Smoker Yes 01/05/25 13:09 Duration of Surgery greater Yes 01/05/25 13:09 than 60 minutes Number of Risk Factors 2 07/28/25 13:09 PONV Score Moderate Risk 01/05/25 13:09 Height Weight Height Weight: Anesthesia: Height Weight Height 6 ft 10/21/24 09:13 Respiratory Assessment Respiratory Assessment - amf mechanic: Respiratory Tract Infection Hx - amf mechanic Hx Respiratory Tract Infection No 01/05/25 13:09 STOP Sleep Apnea STOP Sleep Apnea - amf mechanic: STOP Sleep Apnea - amf mechanic Hx Hypertension Yes: CONTROLLED WITH MEDS 01/05/25 13:09 Hx Sleep Apnea Yes 01/05/25 13:09 CPAP Yes 01/05/25 13:09 BIPAP No 01/05/25 13:09 Do you snore loudly (louder than talking or can be heard Do you often feel tired/ fatigued/ sleepy during daytime? Has anyone observed you stop breathing during sleep? STOP Results Positive 01/05/25 13:09 QUESTION #5 FULL TEXT : Do you snore loudly (louder than talking or can be heard through closed doors)? 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 Specify any problems Hx of Preganancy in last 3 N/A 01/05/25 13:09 Months Nurse Filling Out Transfusion [id number] 01/05/25 13:09 Questions: Date: 01/05/25 01/05/25 13:09 Time: 13:13 01/05/25 13:09 Patient unable to answer at this time (ie. confused, unrespo /Reproduction History /Reproductive History - amf mechanic: /Reproductive Hx- amf mechanic Hx Now Gestational Age (in weeks): EDC: Hx Hx Para Hx Section SAB PFSH Medical History (Updated 01/05/25 @ 13:16 by Floyd Salinas) Wears glasses Injury of head and neck Hypertension History of echocardiogram Gastric reflux Smoker Non-smoker CPAP (continuous positive airway pressure) dependence Sleep apnea Bilateral inguinal hernia without obstruction or gangrene Left inguinal hernia Home Medications ???Medication ???Instructions ???Recorded ???Last Taken ???Type amlodipine 10 mg tablet 10 mg PO QDAY 10/21/24 Unknown His tory metoprolol succinate 50 mg 50 mg PO QDAY 10/21/24 Unknown His tory tablet,extended release 24 hr pantoprazole 40 mg tablet,delayed 40 mg PO QDAY 10/21/24 Unknown Hi story release Allergy/AdvReac Type Severity Reaction Status Date / Time No Known Allergies Allergy Verified 01/05/25 13:08 Surgical History H/O umbilical hernia repair Social History Smoking Status: Never smoke (more content not included)... Normal [facility] ECG 12 leadon 12-31-2024 [facility] Office Visiton 12-31-2024 Follow-up visit [id number] Brando Abrams 1950 M Date Provider Department Center 12/31/2024 [id number] ORTIZ [facility] Family History Problem Relation Age of Onset Other Mother Comments: Meningitis, age 41 Dementia Father Comments: age 77 Colon cancer Father 75 Stroke Father Heart disease Sister No Known Problems Sister Atrial fibrillation Brother Prostate cancer Brother 74 Dementia Brother 72 Comments: alive age 74 No Known Problems Brother High Blood Pressure Son Colon cancer Maternal Grandmother No Known Problems Maternal Grandfather Comments: all late in life No Known Problems Paternal Grandmother No Known Problems Paternal Grandfather Family Status - Relation Status Age at Mother Father Sister Alive Sister Alive Brother Alive Brother Alive Brother Alive Son Alive Maternal Grandmother Maternal Grandfather Paternal Grandmother Paternal Grandfather Level of Service:65239 [place] OFFICE/OUTPATIENT ESTABLISHED MOD MDM 30 MIN Reason for Visit and Comments: Follow-up [609911] Normal [facility] Progress Noteon 12-31-2024 Progress Note [facility] - [address] [facility] [id number] Visit type: Established Patient Reason for Visit: Follow-up Assessment / Plan: Brando was seen today for follow-up. Diagnoses and all orders for this visit: Primary hypertension (Primary) Comments: Stable, continue amlodipine and metoprolol Orders: - CBC auto differential; Future - Comprehensive metabolic panel; Future - ECG 12 lead; Future - CBC auto differential - Comprehensive metabolic panel - ECG 12 lead Hypercholesterolemia Comments: Stable, better low-fat meals check lab Orders: - Lipid panel; Future - Lipid panel Gastroesophageal reflux disease without esophagitis Comments: Stable, continue pantoprazole Prostate cancer screening - PSA Total (Screening); Future - PSA Total (Screening) Bilateral recurrent inguinal hernia without obstruction or gangrene Comments: Stable for surgery Family history of prostate cancer Subjective: Patient ID: Brando Abrams is a 74 y.o. male. HPI hypertensive patient with history of renal insufficiency and acid reflux presents for overall checkup. Of note will be getting bilateral inguinal herniorrhaphy in January. Would need some preop clearance and lab work. Overall feeling well. Symptomatic of left side but surgeon feels he has a small right-sided hernia. Review of Systems no recent earache sore throat or cough. No chest pain or palpitations. Denies PND orthopnea claudication or edema. No breakthrough heartburn. No melena or blood. No constipation diarrhea. No change in urine flow. Does tell me his brother just was diagnosed and treated for prostate cancer. Allergies[1] Current Medications[2] Problem List[3] Social History Tobacco Use Smoking status: Never Smokeless tobacco: Never Substance Use Topics Alcohol use: No Alcohol/week: 0.0 standard drinks of alcohol Surgical History[4] Family History[5] Objective: BP 129/76 Pulse 73 Temp 36.9 ?C (98.4 ?F) Ht 6' (1.829 m) Wt 217 lb (98.4 kg) SpO2 97% BMI 29.43 kg/m? Physical Exam Pleasant alert and cooperative. No JVD adenopathy or thyroid lesions. Normal oropharynx and eardrums. No carotid bruits. Heart is regular without murmurs. Lungs are clear. EKG normal sinus rhythm. No ischemia. Abdomen soft nontender without pain hepatosplenomegaly or masses. Small right inguinal hernia. Larger left inguinal hernia. Both are reducible. No prostate masses. Prostate smooth without nodules. No rectal masses. Extremities are pink without edema. [1] No Known Allergies [2] Current Outpatient Medications: amLODIPine (Norvasc) 10 MG tablet, TAKE ONE TABLET BY MOUTH EVERY DAY, Disp: 90 tablet, Rfl: 1 metoprolol succinate XL (Toprol-XL) 50 MG 24 hr tablet, TAKE ONE TABLET BY MOUTH EVERY MORNING, Disp: 90 tablet, Rfl: 1 pantoprazole (ProtoNix) 40 MG EC tablet, Take 40 mg by mouth every morning (before breakfast)., Disp: , Rfl: [3] Patient Active Problem List Diagnosis Hypertension Erectile dysfunction BPH with urinary obstruction Bilateral primary osteoarthritis of knee Hypercholesterolemia Family history of colon cancer in father Renal insufficiency Renal cyst MERNA on CPAP Family history of prostate cancer Bilateral recurrent inguinal hernia without obstruction or gangrene Gastroesophageal reflux disease without esophagitis [4] Past Surgical History: Procedure Laterality Date COLONOSCOPY 03/2020 - neg- due 2026 COLONOSCOPY W/ POLYPECTOMY 2016 Dr. Alexander EGD (HISTORICAL) Dr. Alexander for dysphagia , ? date TOTAL KNEE ARTHROPLASTY Right 05/2021 [place] TOTAL KNEE ARTHROPLASTY Left 07/2021 UMBILICAL HERNIA REPAIR 1960 [5] Family History Problem Relation Name Age of Onset Other (57070) Mother Meningitis, age 41 Dementia Father Gary age 77 Colon cancer Father Gary 75 Stroke Father Gary Heart disease Sister Maureen No Known Problems Sister Venus Atrial fibrillation Brother Van Prostate cancer Brother [place] 74 Dementia Brother Miki 72 alive age 74 No Known Problems Brother Chintan High Blood Pressure Son Colon cancer Maternal Grandmother No Known Problems Maternal Grandfather all late in life No Known Problems Paternal Grandmother No Known Problems Paternal Grandfather [facility] 36on 12-30-2024 36 I called Nelia to le t her know that Brando is going to be seen tomorrow at 7:40 AM [facility] Name of caller: Natasha simmons Contact phone number: [phone] Relationship to Patient: spouse/SO Provider: Dr. Ortiz Practice: [facility] Chief Complaint/Reason for Call: Nelia called in stating that the patient received a text advising that the appointment he is scheduled for tomorrow was canceled. I did verify with her that the patient is still scheduled for an appointment tomorrow but she would still like Reyna to call her. Please follow up to advise. Best time of day caller can be reached: any Patient advised that office/PCP has 24-48 business hours to return their call: Yes [facility] 36on 11-11-2024 36 Sent fax to [facility] at H ome at [phone] [facility] 36on 11-07-2024 36 CMN uploaded to the zulily media and place them in the Dr folder. [facility] Surgery Visit Reporton 10-21 Surgery Visit Report [facility] [address] [place] [address] OFFICE VISIT Date of Service: 10/21/24 MR#: [id number] Acct: [id number] Name: BRANDO ABRAMS Rep #: [id number] : 1950 Provider: Dr. Farshad richey MD Age/Sex: 74/M Location: [facility] Status: Signed Intake Vital Signs 10/21/24 09:13 Height 6 ft Weight: 223 lb 8 oz BMI 30.3 BP 130/74 H Blood Pressure Location Rt brachial Position Sitting Respiration 18 Pulse 72 Pulse Source Monitor Temp 97.6 F L Temp Source Temporal Pulse Oximetry (%) 98 Oxygen Delivery Method room air Intake Visit Reasons: INGUINAL HERNIA Chief Complaint: L inguinal hernia Is patient in pain?: No Allergies No Known Allergies Allergy (Verified 10/21/24 09:14) Have you fallen in the past year?: No PFSH Medical History (Updated 10/21/24 @ 09:[address] Farshad Fields MD) Bilateral inguinal hernia without obstruction or gangrene Left inguinal hernia Surgical History H/O umbilical hernia repair Social History Smoking Status: Never smoker alcohol intake: never substance use type: does not use HPI HPI HPI: The patient is a 74-year-old male who is being seen today for a newly discovered left inguinal hernia. 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 He was doing some heavy lifting recently and noticed a painful bulge in the left groin. He has noticed this for a few weeks. He presents today for evaluation of a possible left inguinal hernia ROS General General: No weight change, appetite, fatigue, colon cancer, breast cancer or weakness HEENT HEENT: No difficulty swallowing, eye injury, eye surgery, swollen glands or hoarseness Endo Endocrine: No thyroid disease, diabetes mellitus, thyroid cancer, Hair loss, heat intolerance or cold intolerance Skin Skin: No rash or changing moles Musc Musculoskeletal: Yes arthritis; No back problems, rheumatoid arthritis, gout or joint pain Cardio Cardiovascular: Yes high blood pressure; No murmur, pacemaker, heart disease, atrial fibrillation, heart attack, heart stent, palpitations, shortness of breath with exertion or chest pain Psych Psychiatric: No depression, anxiety or hearing voices Resp Respiratory: No shortness of breath, No sleep apnea, No cough, No COPD, No asthma, No emphysema and No wheezing Gastro Gastrointestinal: No abdominal pain, No nausea or vomiting, No diarrhea, No constipation, No blood in stool, Yes acid reflux, No hemorrhoids, No ulcers, No gallbladder problem and No black,tarry stools Anthony Hematologic: No blood thinners, No blood disorders, No bleeding, No anemia and No blood clots Neuro Neurologic: No numbness, No tingling and No weakness Exam Const General: cooperative, healthy appearing, comfortable and no acute distress [facility] Head: normal to inspection Eyes General: appearance normal, both eyes and all related structures Neck Neck: normal visual inspection Chest Chest palpation inspection: normal inspection of the chest Resp Effort Inspection: normal respiratory effort GI Inspection: normal to inspection Other: Examination reveals bilateral inguinal hernias. The left side is larger and more symptomatic than the right. The right side is small. Both are easily reducible. Assessment and Plan Assessment and Plan (1) Bilateral inguinal hernia without obstruction or gangrene: Status: Acute Plan: The patient is a 74-year-old male with bilateral inguinal hernias. He presented with a left inguinal hernia however he was noted on exam to have a small hernia on the right. I have offered him robotic bilateral inguinal hernia repairs with mesh. We discussed the details of the planned procedure and he is interested in proceeding with repair. He would like to postpone the surgery for sometime in January or February. I suggested a hernia belt in the meantime. This will be scheduled in a timely manner. Medications: Discontinued oxycodone-acetaminophen 5-325 mg Discontinued Reason: Pt no longer taking 1 TAB PO Q6H PRN 3 days PRN 12 TABLETS 0RF Pain S46.019A - Strain of muscle(s) and tendon(s) of the rotator cuff of unspecified shoulder, initial encounter Coding Level of Care Code Off vis,new,level 4 Diagnoses Bilateral inguinal hernia without obstruction or gangrene K40.20 Clinical Quality Measures Falls Risk Screening/Assistive Devices Have you fallen in the past year?: No 10/21/24 0938 Date Farshad Corey Signature: Date (if applicable) (more content not included)... Normal [facility] Office Visiton 10-13-2024 Follow-up visit [id number] Brando Abrams 1950 [facility] Provider Department Center 10/13/2024 [id number] ORTIZ [facility] Family History Problem Relation Age of Onset Other Mother Comments: Meningitis, age 41 Dementia Father Comments: age 77 Colon cancer Father 75 Stroke Father Heart disease Sister No Known Problems Sister Atrial fibrillation Brother Dementia Brother 72 Comments: alive age 74 No Known Problems Brother High Blood Pressure Son Colon cancer Maternal Grandmother No Known Problems Maternal Grandfather Comments: all late in life No Known Problems Paternal Grandmother No Known Problems Paternal Grandfather Family Status - Relation Status Age at Mother Father Sister Alive Sister Alive Brother Alive Brother Alive Brother Alive Son Alive Maternal Grandmother Maternal Grandfather Paternal Grandmother Paternal Grandfather Level of Service:79605 [place] OFFICE/OUTPATIENT ESTABLISHED LOW MDM 20 MIN Reason for Visit and Comments: Hernia [160] - Concern in groin area Immunizations [58] - Pt declined Pneumococcal Vaccine Normal [facility] Progress Noteon 10-13-2024 Progress Note [facility] - [address] [facility] [address] Visit type: Established Patient Reason for Visit: Hernia (Concern in groin area ) and Immunizations (Pt declined Pneumococcal Vaccine) Assessment / Plan: Brando was seen today for hernia and immunizations. Diagnoses and all orders for this visit: Inguinal hernia of left side without obstruction or gangrene (Primary) Comments: New onset, minimally symptomatic, general surgical eval Primary hypertension Comments: Stable continue meds Subjective: Patient ID: Brando Abrams is a 74 y.o. male. 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 Not associated with pain emesis or change in bowel habits. Eating and voiding well. Review of Systems negative. Colonoscopy due in a couple years. No change in urine flow. No constipation diarrhea melena or blood. No dysuria hematuria. History of remote umbilical hernia repair. Blood pressure well at home No Known Allergies Current Outpatient Medications: amLODIPine (Norvasc) 10 MG tablet, TAKE ONE TABLET BY MOUTH EVERY DAY, Disp: 90 tablet, Rfl: 1 Arexvy 120 MCG/0.5ML reconstituted suspension, Inject 0.5 mL into the shoulder, thigh, or buttocks Once., Disp: , Rfl: metoprolol succinate XL (Toprol-XL) 50 MG 24 hr tablet, TAKE ONE TABLET BY MOUTH EVERY MORNING, Disp: 90 tablet, Rfl: 1 pantoprazole (ProtoNix) 40 MG EC tablet, Take 40 mg by mouth every morning (before breakfast)., Disp: , Rfl: Shingrix 50 MCG/0.5ML vaccine, Inject 50 mcg into the shoulder, thigh, or buttocks Once., Disp: , Rfl: Patient Active Problem List Diagnosis Hypertension Erectile dysfunction BPH with urinary obstruction Bilateral primary osteoarthritis of knee Hypercholesterolemia Family history of colon cancer in father Renal insufficiency Prostate cancer screening Renal cyst MERNA on CPAP Social History Tobacco Use Smoking status: Never Smokeless tobacco: Never Substance Use Topics Alcohol use: No Alcohol/week: 0.0 standard drinks of alcohol Past Surgical History: Procedure Laterality Date COLONOSCOPY 03/2020 - neg- due 2026 COLONOSCOPY W/ POLYPECTOMY 2016 Dr. Alexander EGD (HISTORICAL) Dr. Alexander for dysphagia , ? date TOTAL KNEE ARTHROPLASTY Right 05/2021 [place] TOTAL KNEE ARTHROPLASTY Left 07/2021 UMBILICAL HERNIA REPAIR 1960 Family History Problem Relation Name Age of Onset Other (78870) Mother Meningitis, age 41 Dementia Father Gary age 77 Colon cancer Father Gary 75 Stroke Father Gary Heart disease Sister Maureen No Known Problems Sister Venus Atrial fibrillation Brother [place] Dementia Brother Miki 72 alive age 74 No Known Problems Brother Chintan High Blood Pressure Son Colon cancer Maternal Grandmother No Known Problems Maternal Grandfather all late in life No Known Problems Paternal Grandmother No Known Problems Paternal Grandfather Objective: BP 126/78 Pulse 72 Temp 37.1 ?C (98.7 ?F) (Temporal) Ht 6' (1.829 m) Wt 227 lb (103 kg) SpO2 93% BMI 30.79 kg/m? Physical Exam no neck masses or adenopathy. Recheck blood pressure excellent. Heart is regular without ectopy. Lungs are clear. Abdomen without pain hepatosplenomegaly or masses. Normal umbilicus. Moderate sized left inguinal hernia is nontender. No hepatosplenomegaly. Good bowel sounds. No guarding rigidity or rebound tenderness. No femoral bruit. Extremities are pink without edema Normal [facility] 08-04-2024 36 PAP headgear is note d as unsigned in the patient chart and add it to the doctor's folder. Normal [facility] 2024 36 Recent Visits Date Type Provider Dept 05/29/24 Office Visit Femi Ortiz DO [facility] 01/04/24 Office Visit Femi Ortiz DO [facility] Showing recent visits within past 365 days and meeting all other requirements Future Appointments No visits were found meeting these conditions. Showing future appointments within next 90 days and meeting all other requirements Requested Prescriptions Pending Prescriptions Disp Refills metoprolol succinate XL (Toprol-XL) 50 MG 24 hr tablet [Pharmacy Med Name: METOPROLOL SUCCINATE ER 50MG TB24] 90 tablet 1 Sig: TAKE ONE TABLET BY MOUTH EVERY MORNING amLODIPine (Norvasc) 10 MG tablet [Pharmacy Med Name: AMLODIPINE BESYLATE 10MG TABS] 90 tablet 1 Sig: TAKE ONE TABLET BY MOUTH EVERY DAY Provider: Femi Ortiz DO Verified pharmacy: yes Verified day(s) supplied: yes Verified refill(s) needed (previous prescription showing no refills in chart): Yes Have you received any controlled medications from any other provider? N/A Overdue for visit: No If yes - patient scheduled? N/A Most recent labs completed in chart? N/A None [facility] 37on 05-29-2024 37 Personalized Preventative Plan for Brando Abrams - 05/29/2024 Medicare offers a range of preventative health benefits. Some of the tests and screenings are paid in full while others may be subject to a deductible, co-insurance, and / or copay. Some of these benefits include a comprehensive review of your medical history including lifestyle, illnesses that may run in your family, and various assessments and screenings as appropriate. After reviewing your medical record and screening and assessments performed today, your provider may have ordered immunizations, labs, imaging, and / or referrals for you. A list of these orders (if applicable) as well as your Preventative Care list are included within your After Visit Summary for your review. Other Preventative Recommendations: A preventive eye exam by an personalization specialist is recommended every 1-2 years to screen for glaucoma, cataracts, macular degeneration, and other eye disorders. A preventive dental visit is recommended every 6 months. Try to get at least 150 minutes of exercise per week or 10,000 steps per day on a pedometer. You need 1200-1500mg of calcium and 6823-0415 international units of vitamin D per day. It is possible to meet your calcium requirement with diet alone, but a vitamin D supplement is usually necessary to meet this goal. When exposed to the sun, use a sunscreen that protects against both UVA and UVB radiation with an SPF of 30 or greater. Reapply every 2-3 hours or after sweating, drying off with a towel, or swimming. Always wear a seat belt when traveling in a car. Always wear a helmet when riding a bicycle or a motorcycle Normal [facility] Office Visiton 05-29-2024 Follow-up visit [id number] Brando Abrams 1950 M Date Provider Department Center 05/29/2024 [id number] ARRIOLA [facility] Family History Problem Relation Age of Onset Other Mother Comments: Meningitis, age 41 Dementia Father Comments: age 77 Colon cancer Father 75 Stroke Father Heart disease Sister No Known Problems Sister Atrial fibrillation Brother Dementia Brother 72 Comments: alive age 74 No Known Problems Brother High Blood Pressure Son Colon cancer Maternal Grandmother No Known Problems Maternal Grandfather Comments: all late in life No Known Problems Paternal Grandmother No Known Problems Paternal Grandfather Family Status - Relation Status Age at Mother Father Sister Alive Sister Alive Brother Alive Brother Alive Brother Alive Son Alive Maternal Grandmother Maternal Grandfather Paternal Grandmother Paternal Grandfather Level of Service:G0439 [place] PPPS, SUBSEQ VISIT Reason for Visit and Comments: Medicare Annual Wellness Visit Subsequent [677] Flu Vaccine [189] - Patient has declined the flu vaccine Normal [facility] Progress Noteon 05-29-2024 Progress Note [facility] - [address] [facility] [address] Dept: [phone] Dept Chief Complaint: Brando Abrams is an 73 y.o. male here for an annual wellness visit. Hypertensive patient with knee arthritis and acid reflux presents for checkup. Overall feeling well. No change in family history. Assessment/Plan : Problem List Items Addressed This Visit Hypertension Bilateral primary osteoarthritis of knee MERNA on CPAP Other Visit Diagnoses Encounter for subsequent annual wellness visit (AWV) in Medicare patient - Primary Paresthesia of hand, bilateral Gastroesophageal reflux disease without esophagitis I have reviewed and reconciled the medication list with the patient today. Current Outpatient Medications Medication Sig Dispense Refill amLODIPine (Norvasc) 10 MG tablet Take 1 tablet (10 mg) by mouth daily. 90 tablet 1 metoprolol succinate XL (Toprol-XL) 50 MG 24 hr tablet Take 1 tablet (50 mg) by mouth every morning. 90 tablet 1 pantoprazole (ProtoNix) 40 MG EC tablet Take 40 mg by mouth every morning (before breakfast). No current facility-administered medications for this visit. Also reviewed during this visit: Allergies Meds Problems Med Hx Fam Hx The following health maintenance schedule was reviewed with the patient and provided in printed form in the after visit summary: Health Maintenance Topic Date Due Hepatitis C Screening Never done Diabetes Screening Never done DTaP/Tdap/Td Vaccines (1 - Tdap) Never done Zoster Vaccines (1 of 2) Never done Pneumococcal Vaccine: 50+ Years (2 of 2 - PCV) 08/17/2021 Medicare Annual Wellness (AWV) 03/02/2022 Influenza Vaccine (1) Never done COVID-19 Vaccine ( season) 2024 Depression Screening 05/28/2025 RSV Immunization for Adults (1 - 1-dose 75+ series) 2027 Lipid Panel 07/05/2028 Colorectal Cancer Screening 02/02/2030 RSV Immunization under 20 Months Aged Out HIB Vaccines Aged Out Hepatitis B Vaccines Aged Out IPV Vaccines Aged Out Hepatitis A Vaccines Aged Out Meningococcal Vaccine Aged Out Rotavirus Vaccines Aged Out HPV Vaccines Aged Out List of current healthcare providers: Patient Care Team: Femi Ortiz DO as PCP - General (Family Medicine) No orders of the defined types were placed in this encounter. Review of Systems no constitutional symptoms. No recent earache sore throat or cough. No chest pain or dyspnea. No heartburn on meds. No abdominal complaints. He is interested in getting colonoscopy every 5 years due to his family history of colon cancer. Would like referral to Dr. Alexander. No change in urine flow. Prostate cancer screening up-to-date. Only concern is bilateral hand numbness when he turns in bed. No neck or radicular pain. No strength loss. No carpal tunnel symptoms. No sense of weakness and no lower extremity concerns Physical Exam The physical exam is generally normal. Patient appears well, alert and oriented x 3, pleasant, cooperative. Vitals are as noted. No carotid bruits. Neck supple, no abnormal adenopathy, thyroid lesions or masses. Ears, nose and throat are normal without acute findings. Lungs are clear to auscultation. Heart is regular, without murmurs, gallops or ectopy. Abdomen is soft, non tender, without masses, hepatosplenomegaly, or bruits. Normal BS evident. Extremities are normal without edema. Peripheral pulses are fair. No worrisome skin lesions. Screening neurological exam is normal without focal deficits. Negative Spurling's. No Tinel's or Phalen's. Reflexes normal. There is no motor or sensory loss of the hands or fingers. Color and temperature is normal Objective : BP 137/77 (BP Location: Right arm, Patient Position: Sitting, BP Cuff Size: Large adult) Pulse 72 Temp 36.3 ?C (97.4 ?F) (Temporal) Ht 6' (1.829 m) Wt 224 lb 6.4 oz (102 kg) SpO2 95% BMI 30.43 kg/m? No results found. Subjective : Health Risk Assessment: General: General In general, how would you say your health is?: Very good In the past 7 days, have you experienced any of the following: New or Increased Pain, New or Increased Fatigue, Loneliness, Social Isolation, Stress or Anger?: No Do you get the social and emotional suppport you need?: Yes Health Habits/Nutrition: Health Habits / Nutrition On average, how many days per week do you engage in moderate to strenous exercise (like a brisk walk)?: 5 days On average, how man minutes do you engage in exercise at this level?: 60 min Have you lost any weight without trying in the past 3 months? : No Have you seen the dentist within the past year?: Yes Hearing/ Vision: Hearing / Vision Do you or your family notice any trouble with your hearing that hasn't been managed with hearing aids?: No Do you have difficulty driving, watching TV, or doing any of your daily activities kelin (more content not included)... [facility]2023 Glassful ECG 12 leadOrdered By: Feliz Adan on 04-03-2023 Glassful XR Chest 2 Viewson 3 Negative chest. Report Dictated on Electronically Signed By: Bud Ceron DO Electronically Signed Date/Time: 04/03/2023 2:25 PM T [facility] Patient Name: BRANDO ABRAMS : 1950 Exam Date/Time: 04/03/2023 12:04 Procedure: XR CHEST 2 VIEWS Ordering Provider: BUTLER JAMES Reason For Exam: cough and congestion CHEST, PA & LATERAL: INDICATION: Cough and congestion COMPARISON: No previous studies are available for comparison. PA and lateral views of the chest were obtained. The heart is normal in size. The mediastinal silhouette is normal. The lungs are clear. There are no effusions or infiltrates. There is no pleural thickening. The osseous structures are unremarkable. [facility] Bud Ceron DO - 04/03/2023 [facility] 1950 [id number] Exam Date/Time: 04/03/2023 12:04 Procedure: XR CHEST 2 VIEWS Ordering Provider: BUTLER JAMES Reason For Exam: cough and congestion CHEST, PA & LATERAL: INDICATION: Cough and congestion COMPARISON: No previous studies are available for comparison. PA and lateral views of the chest were obtained. The heart is normal in size. The mediastinal silhouette is normal. The lungs are clear. There are no effusions or infiltrates. There is no pleural thickening. The osseous structures are unremarkable. IMPRESSION: Negative chest. Report Dictated on Electronically Signed By: Bud Ceron DO Electronically Signed Date/Time: 04/03/2023 2:25 PM EDT [facility] [employer] Radiology Study observation (narrative) [employer] XR Chest 2 ViewsOrdered By: Bud Ceron on 04-03-2023 [facility] [employer] Work Phone: Basic metabolic 1998 panelon 06-23-2022 Anion gap [Moles/Vol] 11 mmol/L [facility] [employer] Calcium [Mass/Vol] 9.5 mg/dL 8.6 - 10. 3 mg/dL [facility] [employer] Chloride [Moles/Vol] 106 mmol/L 98 - 11 0 mmol/L [facility] [employer] CO2 [Moles/Vol] 22 mmol/L 20 - 32 mmol/L [facility] [employer] Creatinine [Mass/Vol] 1.32 mg/dL 0.70 - 1.35 mg/dL [facility] [employer] GFR/1.73 sq M.predicted among non-blacks MDRD (S/P/Bld) [Vol rate/Area] 58 mL/min/{1.73_m2} Low > OR = 60 mL/min/1.73m2 [facility] [employer] Comment on above: The eGFR is based on the CKD-EPI 2020 equation. To calculate the new eGFR from a previous Creatinine or Cystatin C result, go to https://www.kidney.org/professionals/ kdoqi/gfr%5Fcalculator Glucose [Mass/Vol] 85 mg/dL 65 - 99 mg/dL [facility] Comment on above: Fasting reference interval Interpretation and review of laboratory results Abnormal [facility] Potassium [Moles/Vol] 4.8 mmol/L 3.5 - 5.3 mmol/L [facility] Sodium [Moles/Vol] 139 mmol/L 135 - 146 mmol/L [facility] Urea nitrogen [Mass/Vol] 22 mg/dL 7 - 25 mg/dL [facility] Urea nitrogen/Creatinine [Mass ratio] NOT APPLICABLE [facility] US RETROPERITONEAL LIMITEDOr dered By: Celestino Khanna on 02-17-2021 Patient Name: BRANDO HARDY Ultrasound ACCESSION EXAM DATE/TIME PROCEDURE ORDERING PROVIDER [id number] 02/17/2021 13:37 EDT US Retroperitoneal DO KHANNA PAUL [employer] CPT code 14269 Reason For Exam (US Retroperitoneal [employer]) . Report RENAL ULTRASOUND: INDICATION: Renal insufficiency COMPARISON: No prior studies are available for comparison. Sonographic images of the bilateral kidneys and bladder were obtained. The right kidney measures 10.2 x 6.3 x 6.3 cm. Parenchymal echotexture is increased. Multiple renal cysts are present, the largest superiorly measuring up to 2.6 cm. There is no evidence of hydronephrosis or renal calculus. The left kidney measures 10.6 x 5 cm x 6.1 cm. Parenchymal echotexture is increased. Multiple renal cysts are present, the largest involves the superior pole, measuring 3.3 cm. There is no evidence of hydronephrosis or renal calculus. No mass or fluid collection is seen adjacent to the kidneys. The bladder is grossly unremarkable. IMPRESSION: Increased echogenicity of the kidneys, suggesting medical renal disease. Bilateral renal cysts. Report Dictated on --- Final --- Dictating Physician: DO CERON ALFRED Signed Date and Time: 02/17/2021 8:38 pm Signed by: DO CERON ALFRED Transcribed Date and Time: 02/17/2021 8:39 [facility] Work Phone: [facility], [facility] Incoming Radiology Results From [facility] - 02/17/2021 8:39 PM EDT Patient Name: BRANDO ABRAMS Ultrasound ACCESSION EXAM DATE/TIME PROCEDURE ORDERING PROVIDER [id number] 02/17/2021 13:37 EDT US Retroperitoneal FRACADO ROE, ECLESTINO [employer] CPT code 43800 Reason For Exam (US Retroperitoneal [employer]) . Report RENAL ULTRASOUND: INDICATION: Renal insufficiency COMPARISON: No prior studies are available for comparison. Sonographic images of the bilateral kidneys and bladder were obtained. The right kidney measures 10.2 x 6.3 x 6.3 cm. Parenchymal echotexture is increased. Multiple renal cysts are present, the largest superiorly measuring up to 2.6 cm. There is no evidence of hydronephrosis or renal calculus. The left kidney measures 10.6 x 5 cm x 6.1 cm. Parenchymal echotexture is increased. Multiple renal cysts are present, the largest involves the superior pole, measuring 3.3 cm. There is no evidence of hydronephrosis or renal calculus. No mass or fluid collection is seen adjacent to the kidneys. The bladder is grossly unremarkable. IMPRESSION: Increased echogenicity of the kidneys, suggesting medical renal disease. Bilateral renal cysts. Report Dictated on --- Final --- Dictating Physician: DO CERON ALFRED Signed Date and Time: 02/17/2021 8:38 pm Signed by: DO CERON ALFRED Transcribed Date and Time: 02/17/2021 8:39 [facility] Work Phone: [facility] Work Phone: [facility]on 02-17-2021 [facility] Limited Patient Name: BRANDO ABRAMS Ultrasound ACCESSION EXAM DATE/TIME PROCEDURE ORDERING PROVIDER [id number] 02/17/2021 13:37 EDT US Retroperitoneal CLEMENCIA CELESTINO ORSS E. Limited CPT code 55419 Reason For Exam ([facility]peritoneal Limited) . Report RENAL ULTRASOUND: INDICATION: Renal insufficiency COMPARISON: No prior studies are available for comparison. Sonographic images of the bilateral kidneys and bladder were obtained. The right kidney measures 10.2 x 6.3 x 6.3 cm. Parenchymal echotexture is increased. Multiple renal cysts are present, the largest superiorly measuring up to 2.6 cm. There is no evidence of hydronephrosis or renal calculus. The left kidney measures 10.6 x 5 cm x 6.1 cm. Parenchymal echotexture is increased. Multiple renal cysts are present, the largest involves the superior pole, measuring 3.3 cm. There is no evidence of hydronephrosis or renal calculus. No mass or fluid collection is seen adjacent to the kidneys. The bladder is grossly unremarkable. IMPRESSION: Increased echogenicity of the kidneys, suggesting medical renal disease. Bilateral renal cysts. Report Dictated on Final Dictating Physician: DO CERON ALFRED Signed Date and Time: 02/17/2021 8:38 pm Signed by: DO CERON ALFRED Transcribed Date and Time: 02/17/2021 8:39 Normal [facility] Vital Signs Date Time Vital Sign Value Performing Clinician Facility 12-31-2024 07:39-0400 Body height 182.9 cm [facility] 12-31-2024 07:39-0400 Body mass index (BMI) [Ratio] 29.43 kg/m2 Femi [facility] 12-31-2024 07:39-0400 Body temperature 98.4 [degF] [facility] 12-31-2024 07:39-0400 Body weight 98.43 kg Femi Ortiz DO Work Phone: [employer] 12-31-2024 07:39-0400 Diastolic blood pressure 76 mm[Hg] Femi Ortiz DO Work Phone: [facility] [employer] 12-31-2024 07:39-0400 Heart rate 73 /min Femi Ortiz DO [facility] 12-31-2024 07:39-0400 SaO2% (BldA) [Mass fraction] 97 % Femi Ortiz DO Work Phone: [facility] 12-31-2024 07:39-0400 Systolic blood pressure 129 mm[Hg] Femi Ortiz DO Work Phone: [facility] 10-21-2024 09:13-0400 Body height 182.[address] Femi Ortiz DO Work Phone: [facility] 10-21-2024 09:13-0400 Body mass index (BMI) [Ratio] 30.3 kg/m2 Dr. Femi Ortiz DO Work Phone: [facility] 10-21-2024 09:13-0400 Body temperature 97.6 [degF] Dr. Femi Ortiz DO Work Phone: [facility] 10-21-2024 09:13-0400 Body weight 101.[address] Femi Ortiz DO Work Phone: [facility] 10-21-2024 09:13-0400 Diastolic blood pressure 74 mm[Hg] Dr. Femi Ortiz DO Work Phone: [facility] 10-21-2024 09:13-0400 Heart rate 72 /min Dr. Femi Ortiz DO Work Phone: [facility] 10-21-2024 09:13-0400 Respiratory rate 18 /min Dr. Femi Ortiz DO Work Phone: [facility] 10-21-2024 09:13-0400 SaO2% (BldA) [Mass fraction] 98 % Dr. Femi Ortiz DO Work Phone: [facility] 10-21-2024 09:13-0400 Systolic blood pressure 130 mm[Hg] Dr. Femi Ortiz DO Work Phone: [facility] 10-13-2024 07:11-0400 Diastolic blood pressure 78 mm[Hg] Femi Ortiz DO Work Phone: [facility] 10-13-2024 07:11-0400 Heart rate 72 /min Femi Ortiz DO Work Phone: [facility] [employer] 10-13-2024 07:11-0400 Systolic blood pressure 126 mm[Hg] Femi Ortiz DO Work Phone: [facility] [employer] 10-13-2024 06:57-0400 Body height 182.9 cm Femi Ortiz DO Work Phone: [facility] [employer] 10-13-2024 06:57-0400 Body mass index (BMI) [Ratio] 30.79 kg/m2 Femi Ortiz DO Work Phone: [facility] [employer] 10-13-2024 06:57-0400 Body temperature 98.71 [degF] Femi Ortiz DO Work Phone: [facility] [employer] 10-13-2024 06:57-0400 Body weight 102.97 kg Femi Ortiz DO Work Phone: [facility] [employer] 10-13-2024 06:57-0400 SaO2% (BldA) [Mass fraction] 93 % Femi Ortiz DO Work Phone: [facility] [employer] 05-29-2024 10:24-0500 Body height 182.9 cm Femi Ortzi DO Work Phone: [facility] [employer] 05-29-2024 10:24-0500 Body mass index (BMI) [Ratio] 30.43 kg/m2 Femi Ortiz DO Work Phone: [facility] [employer] 05-29-2024 10:24-0500 Body temperature 97.39 [degF] Femi Ortiz DO Work Phone: [employer] 05-29-2024 10:24-0500 Body weight 101.79 kg Femi Ortiz DO Work Phone: [employer] 05-29-2024 10:24-0500 Diastolic blood pressure 77 mm[Hg] Femi Ortiz DO Work Phone: [employer] 05-29-2024 10:24-0500 Heart rate 72 /min Femi Ortiz DO Work Phone: [employer] 05-29-2024 10:24-0500 SaO2% (BldA) [Mass fraction] 95 % Femi Ortiz DO Work Phone: [facility] [employer] 05-29-2024 10:24-0500 Systolic blood pressure 137 mm[Hg] Femi Ortiz DO Work Phone: [facility] [employer] 01-04-2024 08:51-0400 Body height 182.9 cm Femi Ortiz DO Work Phone: [facility] [employer] 01-04-2024 08:51-0400 Body mass index (BMI) [Ratio] 30.16 kg/m2 Femi Ortiz DO Work Phone: [employer] 01-04-2024 08:51-0400 Body temperature 97.9 [degF] Femi Ortiz DO Work Phone: [facility] [employer] 01-04-2024 08:51-0400 Body weight 100.88 kg Femi Ortiz DO Work Phone: [facility] [employer] 01-04-2024 08:51-0400 Diastolic blood pressure 78 mm[Hg] Femi Ortiz DO Work Phone: [employer] 01-04-2024 08:51-0400 Heart rate 66 /min Femi Ortiz DO Work Phone: [facility] [employer] 01-04-2024 08:51-0400 SaO2% (BldA) [Mass fraction] 95 % Femi Ortiz DO Work Phone: [facility] [employer] 01-04-2024 08:51-0400 Systolic blood pressure 130 mm[Hg] Femi Ortiz DO Work Phone: [employer] 12-05-2023 10:25-0400 Body height 182.9 cm Parveen Stanley MD Work Phone: [employer] 12-05-2023 10:25-0400 Body mass index (BMI) [Ratio] 30.11 kg/m2 Parveen Stanley MD Work Phone: [employer] 12-05-2023 10:25-0400 Body weight 100.7 kg Parveen Stanley MD Work Phone: [facility] [employer] 12-05-2023 10:25-0400 Diastolic blood pressure 76 mm[Hg] Parveen Stanley MD Work Phone: [facility] [employer] 12-05-2023 10:25-0400 Heart rate 68 /min Parveen Stanley MD Work Phone: [facility] [employer] 12-05-2023 10:25-0400 SaO2% (BldA) [Mass fraction] 98 % Parveen Stanley MD Work Phone: [facility] [employer] 12-05-2023 10:25-0400 Systolic blood pressure 146 mm[Hg] Parveen Stanley MD Work Phone: [facility] [employer] 08-29-2023 08:50-0400 Body height 182.9 cm Parveen Stanley MD Work Phone: [facility] [employer] 08-29-2023 08:50-0400 Body mass index (BMI) [Ratio] 30.92 kg/m2 Parveen Stanley MD Work Phone: [facility] [employer] 08-29-2023 08:50-0400 Body weight 103.42 kg Parveen Stanley MD Work Phone: [facility] [employer] 08-29-2023 08:50-0400 Diastolic blood pressure 74 mm[Hg] Parveen Stanley MD Work Phone: [facility] [employer] 08-29-2023 08:50-0400 Heart rate 88 /min Parveen Stanley MD Work Phone: [facility] [employer] 08-29-2023 08:50-0400 SaO2% (BldA) [Mass fraction] 96 % Parveen Stanley MD Work Phone: [facility] [employer] 08-29-2023 08:50-0400 Systolic blood pressure 145 mm[Hg] Parveen Stanley MD Work Phone: [facility] [employer] 07-05-2023 08:52-0500 Body height 182.9 cm Femi Ortiz DO Work Phone: [employer] 07-05-2023 08:52-0500 Body mass index (BMI) [Ratio] 30.11 kg/m2 Femi Ortiz DO Work Phone: [facility] [employer] 07-05-2023 08:52-0500 Body temperature 98.2 [degF] Femi Ortiz DO Work Phone: [facility] [employer] 07-05-2023 08:52-0500 Body weight 100.7 kg Femi Ortiz DO Work Phone: [facility] [employer] 07-05-2023 08:52-0500 Diastolic blood pressure 68 mm[Hg] Femi Ortiz DO Work Phone: [facility] [employer] 07-05-2023 08:52-0500 Heart rate 77 /min Femi Ortiz DO Work Phone: [facility] [employer] 07-05-2023 08:52-0500 SaO2% (BldA) [Mass fraction] 99 % Femi Ortiz DO Work Phone: [facility] [employer] 07-05-2023 08:52-0500 Systolic blood pressure 123 mm[Hg] Femi Ortiz DO Work Phone: [facility] [employer] 04-11-2023 09:25-0400 Body height 182.9 cm Femi Ortiz DO Work Phone: [facility] [employer] 04-11-2023 09:25-0400 Body mass index (BMI) [Ratio] 29.57 kg/m2 Femi Ortiz DO Work Phone: [facility] [employer] 04-11-2023 09:25-0400 Body temperature 97.3 [degF] Femi Ortiz DO Work Phone: [employer] 04-11-2023 09:25-0400 Body weight 98.88 kg Femi Ortiz DO Work Phone: [facility] [employer] 04-11-2023 09:25-0400 Diastolic blood pressure 60 mm[Hg] Femi Ortiz DO Work Phone: [facility] [employer] 04-11-2023 09:25-0400 Heart rate 64 /min Femi Ortiz DO Work Phone: [facility] [employer] 04-11-2023 09:25-0400 SaO2% (BldA) [Mass fraction] 93 % Femi Ortiz DO Work Phone: [facility] [employer] 04-11-2023 09:25-0400 Systolic blood pressure 138 mm[Hg] Femi Ortiz DO Work Phone: [facility] [employer] 04-03-2023 10:37-0400 Body height 182.9 cm Cody Butler PA-C Work Phone: [employer] 04-03-2023 10:37-0400 Body mass index (BMI) [Ratio] 29.16 kg/m2 Cody Butler PA-C Work Phone: [facility] [employer] 04-03-2023 10:37-0400 Body temperature 98.91 [degF] Cody Butler PA-C Work Phone: [facility] [employer] 04-03-2023 10:37-0400 Body weight 97.52 kg Cody Butler PA-C Work Phone: [employer] 04-03-2023 10:37-0400 Diastolic blood pressure 76 mm[Hg] Cody Butler PA-C Work Phone: [facility] [employer] 04-03-2023 10:37-0400 Heart rate 69 /min Cody Butler PA-C Work Phone: [facility] [employer] 04-03-2023 10:37-0400 SaO2% (BldA) [Mass fraction] 97 % Cody Butler PA-C Work Phone: [employer] 04-03-2023 10:37-0400 Systolic blood pressure 135 mm[Hg] Cody Butler PA-C Work Phone: [facility] [employer] 12-28-2022 08:56-0400 Body height 182.9 cm Femi Ortiz DO Work Phone: [employer] 12-28-2022 08:56-0400 Body mass index (BMI) [Ratio] 29.16 kg/m2 Femi Ortiz DO Work Phone: [facility] [employer] 12-28-2022 08:56-0400 Body temperature 97.3 [degF] Femi Ortiz DO Work Phone: [facility] [employer] 12-28-2022 08:56-0400 Body weight 97.52 kg Femi Ortiz DO Work Phone: [facility] [employer] 12-28-2022 08:56-0400 Diastolic blood pressure 73 mm[Hg] Femi Ortiz DO Work Phone: [facility] [employer] 12-28-2022 08:56-0400 Heart rate 72 /min Femi Ortiz DO Work Phone: [facility] [employer] 12-28-2022 08:56-0400 SaO2% (BldA) [Mass fraction] 98 % Femi Ortiz DO Work Phone: [facility] [employer] 12-28-2022 08:56-0400 Systolic blood pressure 121 mm[Hg] Femi Ortiz DO Work Phone: [facility] [employer] 06-22-2022 09:45-0500 Diastolic blood pressure 80 mm[Hg] Celestino Casejordin DO Work Phone: [facility] [employer] 06-22-2022 09:45-0500 Heart rate 76 /min Celestino Casejordin DO Work Phone: [facility] [employer] 06-22-2022 09:45-0500 Systolic blood pressure 143 mm[Hg] Celestino Lewisedwino DO Work Phone: [facility] [employer] 06-22-2022 09:08-0500 Body height 182.9 cm Celestino Casejordin DO Work Phone: [facility] [employer] 06-22-2022 09:08-0500 Body mass index (BMI) [Ratio] 30.38 kg/m2 Celestino Caseo DO Work Phone: [facility] [employer] 06-22-2022 09:08-0500 Body temperature 97.7 [degF] Celestino Khanna DO Work Phone: [facility] [employer] 06-22-2022 09:08-0500 Body weight 101.61 kg Celestino Khanna DO Work Phone: [facility] [employer] 06-22-2022 09:08-0500 SaO2% (BldA) [Mass fraction] 97 % Celestino Khanna DO Work Phone: [facility] [employer] Encounters Encounter Date Encounter Type Care Provider Facility Start: 01-19-2025 ambulatory Farshad Fields Facility :[facility] Start: 01-04-2025 End: 01-04-2025 Follow-up encounter Femi Ortiz DO Work Phone: [facility] Comment on above: ECG 12 lead, CBC aut o differential, Comprehensive metabolic panel, Additional followed-up results: 2 Start: 12-31-2024 End: 12-31-2024 Office outpatient visit 25 minutes Femi Ortiz DO Work Phone: [facility] [place] Comment on above: Primary hypertension (Primary Dx); Hypercholesterolemia; Gastroesophageal reflux disease without esophagitis; Prostate cancer screening; Bilateral recurrent inguinal hernia without obstruction or gangrene; Family history of prostate cancer Start: 12-31-2024 End: 12-31-2024 ambulatory [facility] Start: 11-11-2024 End: 11-11-2024 Telephone encounter Parveen Stanley MD Work Phone: [facility] [place] Start: 10-21-2024 End: 10-21-[address] Farshad Fields MD -[facility] Work Phone: Start: 10-21-2024 End: 10-21-[address] Femi Ortiz DO Work Phone: [facility] Work Phone: Start: 10-13-2024 End: 10-13-2024 Telephone encounter Femi Ortiz DO Work Phone: [facility] [place] Comment on above: Referral (Dr Omar tucker) Start: 10-13-2024 End: 10-13-2024 Office outpatient visit 15 minutes Femi Ortiz DO Work Phone: [facility] [place] Comment on above: Inguinal hernia of l eft side without obstruction or gangrene (Primary Dx); Primary hypertension Start: 10-13-2024 End: 10-13-2024 ambulatory [facility] Start: 07-21-2024 End: 2024 Refill Femi Ortiz DO Work Phone: [facility] [place] Start: 05-29-2024 End: 05-29-2024 Telephone encounter Femi Ortiz DO Work Phone: [facility] [place] Comment on above: Referral (Dr Alexander) Start: 05-29-2024 End: 05-29-2024 Assay of hemosiderin, quant Femi Ortiz DO Work Phone: [facility] Start: 05-29-2024 End: 05-29-2024 Patient encounter procedure Femi Ortiz DO Work Phone: [facility] [place] Comment on above: Encounter for subseq uent annual wellness visit (AWV) in Medicare patient (Primary Dx); MERNA on CPAP; Bilateral primary osteoarthritis of knee; Primary hypertension; Paresthesia of hand, bilateral; Gastroesophageal reflux disease without esophagitis; Routine general medical examination at health care facility Start: 05-29-2024 End: 05-29-2024 ambulatory [facility] Start: 05-29-2024 End: 05-29-2024 Encounter for general adult medical examination without abnormal findings [facility] Start: 01-04-2024 End: 01-04-2024 Office outpatient visit 25 minutes Feim Ortiz DO Work Phone: [facility] Comment on above: Hypercholesterolemia (Primary Dx); Primary hypertension; MERNA on CPAP; Prostate cancer screening; Family history of cancer; Renal insufficiency Start: 12-05-2023 End: 03-13-2024 Telephone encounter Parveen Stanley MD Work Phone: [facility] [place] Start: 12-05-2023 End: 12-05-2023 Office outpatient visit 10 minutes Parveen Stanley MD Work Phone: [facility] Comment on above: MERNA (obstructive sle ep apnea) (Primary Dx) Start: 10-16-2023 Telephone encounter Cody shell PA-C Work Phone: [facility] Central Scheduling Start: 10-02-2023 Office outpatient vi sit 15 minutes Parveen Stanley MD Work Phone: [facility] Comment on above: MERNA (obstructive sle ep apnea) (Primary Dx) Start: 09-05-2023 End: 09-05-2023 ambulatory Parveen Stanley MD Work Phone: [facility] Comment on above: MERNA (obstructive sle ep apnea) Start: 08-29-2023 End: 08-29-2023 Office outpatient new 30 minutes Parveen Stanley MD Work Phone: [facility] Comment on above: MERNA (obstructive sle ep apnea) (Primary Dx); Snoring Start: 07-05-2023 Telephone encounter Femi whiting DO Work Phone: [facility] Comment on above: Referral (Dr Alexander) Start: 07-05-2023 End: 07-05-2023 Office outpatient visit 25 minutes Femi Ortiz DO Work Phone: [facility] Comment on above: Primary hypertension (Primary Dx); Snoring; Witnessed apneic spells; Hypercholesterolemia; Bilateral carpal tunnel syndrome; Left shoulder tendonitis; Dysphagia, unspecified type Start: 04-11-2023 Telephone encounter Femi whiting DO Work Phone: [facility] Comment on above: Orders (MRI and orth o) Start: 04-11-2023 End: 04-11-2023 Office outpatient visit 15 minutes Femi Ortiz DO Work Phone: [facility] Comment on above: Internal derangement of shoulder, left (Primary Dx); Rotator cuff insufficiency, left; Traumatic partial tear of left biceps tendon, subsequent encounter Start: 04-09-2023 ambulatory Veronica Mott RN [facility] Cl inical Communication Start: 04-09-2023 Patient encounter procedure Veronica mendoza RN [facility] Clinical Communication Start: 04-03-2023 End: 04-03-2023 Subsequent hospital visit by physician Cody Butler PA-C Work Phone: [facility] Comment on above: Chest pain, unspecif ied type; Acute cough Start: 04-03-2023 End: 04-03-2023 Office outpatient visit 25 minutes Cody Butler PA-C Work Phone: [facility] Comment on above: Chest pain, unspecif ied type (Primary Dx); Acute cough Start: 03-29-2023 ambulatory Valerie campbell RN [facility] Clinical Communication Start: 03-29-2023 Patient encounter procedure Alex Chávez RN [facility] Clinical Communication Start: 12-28-2022 End: 12-28-2022 Office outpatient visit 25 minutes Femi Ortiz DO Work Phone: [facility] Comment on above: Essential hypertensi on (Primary Dx); Prostate cancer screening; Hypercholesterolemia; Bilateral primary osteoarthritis of knee; Family history of colon cancer in father Start: 07-24-2022 Refill Celestino brenner DO Work Phone: [facility] Start: 07-05-2022 Telephone encounter Celestino torres DO Work Phone: [facility] Comment on above: Blood Pressure Check Start: 06-27-2022 Refill Celestino brenner DO Work Phone: [facility] Start: 06-22-2022 End: 06-22-2022 Office outpatient visit 15 minutes Celestino Khanna DO Work Phone: [facility] Comment on above: Primary hypertension (Primary Dx); Renal insufficiency Start: 02-17-2021 End: 02-17-2021 Subsequent hospital visit by physician Celestino Khanna DO Work Phone: [facility] Comment on above: Disorder of kidney a nd ureter, unspecified; Renal insufficiency Procedures Date Procedure Procedure Detail Performing Clinician Start: 12-31-2024 Ecg routine ecg w/le ast 12 lds w/i&r Femi Ortiz DO Work Phone: Start: 12-31-2024 Lipid 1996 panel - S nabila or Plasma Femi Marieermaabdiel DO Work Phone: Start: 10-13-2024 Adult depression scr eening assessment Femi Ortiz DO Work Phone: Start: 05-28-2024 Adult depression scr eening assessment Femi Ortiz DO Work Phone: Start: 01-04-2024 Adult depression scr eening assessment Femi Ortiz DO Work Phone: Start: 09-10-2023 HOME SLEEP TEST Parveen Stanley MD Work Phone: Start: 07-05-2023 Lipid 1996 panel - S nabila or Plasma Parveen Stanley MD Work Phone: Start: 04-03-2023 Radiologic exam ches t 2 views Cody Butler PA-C Work Phone: Start: 04-03-2023 Ecg routine ecg w/le ast 12 lds w/i&r Cody Butler PA-C Work Phone: Start: 12-28-2022 Lipid 1996 panel - S nabila or Plasma Valerie Chávez RN Start: 06-22-2022 Basic metabolic pane l calcium total Celestino Khanna DO Work Phone: Start: 01-17-2022 Lipid 1996 panel - S nabila or Plasma Celestino Khanna DO Work Phone: Start: 02-17-2021 Us retroperitoneal r eal time w/image limited Celestino E Fracasso DO Work Phone: Start: 02-03-2020 Colonoscopy Femi Pet marlene DO Work Phone: Plan of Treatment Date Care Activity Detail Author Start: 02-02-2030 Screening for malignant neoplasm of colon [facility] [employer] Start: 12-31-2029 Lipid panel Lipid Panel [facility] [employer] Start: 07-05-2028 Lipid panel Lipid Panel [facility] [employer] Start: 12-29-2027 Lipid panel Lipid Panel [facility] Start: 2027 RSV Immunization for Adults (1 - 1-dose 75+ series) RSV Immunization for Adults (1 - 1-dose 75+ series) [facility] Start: 01-17-2027 Lipid panel Lipid Panel [facility] Start: 01-04-2026 [facility]id [facility] Work Phone: Start: 10-13-2025 Depression Screening Depression Screening [facility] Start: 06-28-2025 Medicare Annual Wellness (AWV) Medicare Annual Wellness (AWV) [facility] [employer] Start: 06-01-2025 End: 06-01-2025 Patient encounter procedure [facility] [place] Start: 05-28-2025 Depression Screening Depression Screening [facility] Start: 02-09-2025 Influenza vaccination [facility] [employer] Start: 01-04-2025 End: 01-04-2026 Urinalysis complete panel - Urine Complete Urinalysis Lab Routine Primary hypertension Renal insufficiency Expected: 01/04/2025 (Approximate), Expires: 01/04/2026 [facility] [employer] Work Phone: Comment on above: Expected: 01/04/2025 (Approximate), Expi res: 01/04/2026 Start: 01-03-2025 Depression Screening Depression Screening [facility] Start: 12-31-2024 End: 12-31-2025 CBC W Auto Differential panel - Blood CBC auto differential Lab Routine Primary hypertension Expected: 12/31/2024 (Approximate), Expires: 12/31/2025 [facility] [employer] Work Phone: Comment on above: Expected: 12/31/2024 (Approximate), Expi res: 12/31/2025 Start: 12-31-2024 End: 12-31-2025 Comprehensive metabolic 1998 panel - Serum or Plasma Comprehensive metabolic panel Lab Routine Primary hypertension Expected: 12/31/2024 (Approximate), Expires: 12/31/2025 [facility] Comment on above: Expected: 12/31/2024 (Approximate), Expi res: 12/31/2025 Start: 12-31-2024 End: 12-31-2025 Lipid 1996 panel - Serum or Plasma Lipid panel Lab Routine Hypercholesterolemia Expected: 12/31/2024 (Approximate), Expires: 12/31/2025 [facility] Comment on above: Expected: 12/31/2024 (Approximate), Expi res: 12/31/2025 Start: 12-31-2024 End: 12-31-2025 PSA Total (Screening) PSA Total (Screening) Lab Routine Prostate cancer screening Expected: 12/31/2024 (Approximate), Expires: 12/31/2025 [facility] Comment on above: Expected: 12/31/2024 (Approximate), Expi res: 12/31/2025 Start: 12-31-2024 End: 12-31-2024 Patient encounter procedure 12/31/2024 7:40 AM EDT Office Visit [facility] [place] [address] [place] [address] Femi Ortiz DO [address] [place] [id number] [facility] [place] Start: 12-25-2024 End: 12-25-2024 Patient encounter procedure 12/25/2024 9:00 AM EDT Office Visit [facility] [place] [address] [place] [address] Femi Ortiz DO [address] [place] [address] [facility] [place] Start: 05-29-2024 End: 05-29-2024 Patient encounter procedure [facility] Start: 02-10-2024 COVID-19 Vaccine ( season) COVID-19 Vaccine () [facility] Start: 02-10-2024 COVID-19 Vaccine ( season) COVID-19 Vaccine () [facility] Start: 02-10-2024 Influenza vaccination [facility] Start: 01-04-2024 End: 01-03-2025 Basic metabolic 1998 panel - Serum or Plasma Basic metabolic panel Lab Routine Hypercholesterolemia Expected: 01/04/2024 (Approximate), Expires: 01/03/2025 [facility] Work Phone: Comment on above: Expected: 01/04/2024 (Approximate), Expi res: 01/03/2025 Start: 01-04-2024 End: 01-03-2025 PSA Total (Screening) PSA Total (Screening) Lab Routine Prostate cancer screening Expected: 01/04/2024 (Approximate), Expires: 01/03/2025 [facility] Comment on above: Expected: 01/04/2024 (Approximate), Expi res: 01/03/2025 Start: 01-04-2024 End: 01-04-2024 Patient encounter procedure 01/04/2024 9:00 AM EDT Office Visit [facility] [address] [place] [address] Femi Ortiz, DO [address] [place] [address] [facility] Start: 12-05-2023 End: 12-05-2023 Patient encounter procedure 12/05/2023 10:30 AM EDT Office Visit [facility] [address] [place] [address] Parveen Stanley MD [address] [place] [address] [address] [place] [address] [facility] Start: 08-29-2023 End: 08-28-2024 Home sleep test Home sleep test Sleep Center Routine MERNA (obstructive sleep apnea) Expected: 08/29/2023 (Approximate), Expires: 08/28/2024 [facility] [employer] Work Phone: Comment on above: Expected: 08/29/2023 (Approximate), Expi res: 08/28/2024 Start: 07-05-2023 End: 07-05-2024 CBC W Auto Differential panel - Blood CBC auto differential Lab Routine Primary hypertension Expected: 07/05/2023 (Approximate), Expires: 07/05/2024 [facility] [employer] Work Phone: Comment on above: Expected: 07/05/2023 (Approximate), Expi res: 07/05/2024 Start: 07-05-2023 End: 07-05-2024 Comprehensive metabolic 1998 panel - Serum or Plasma Comprehensive metabolic panel Lab Routine Primary hypertension Expected: 07/05/2023 (Approximate), Expires: 07/05/2024 [facility] [employer] Comment on above: Expected: 07/05/2023 (Approximate), Expi res: 07/05/2024 Start: 07-05-2023 End: 07-05-2024 Lipid 1996 panel - Serum or Plasma Lipid panel Lab Routine Hypercholesterolemia Expected: 07/05/2023 (Approximate), Expires: 07/05/2024 [facility] [employer] Comment on above: Expected: 07/05/2023 (Approximate), Expi res: 07/05/2024 Start: 07-05-2023 End: 07-05-2023 Patient encounter procedure [facility] Start: 06-22-2023 Hepatitis B Vaccines (1 of 3 - 3-dose series) Hepatitis B Vaccines (1 of 3 - 3-dose series) [facility] Comment on above: Postponed from 1952 (Patient Refus ed) Start: 06-22-2023 Pneumococcal Vaccine: 65+ Years (2 - PCV) Pneumococcal Vaccine: 65+ Years (2 - PCV) [facility] Comment on above: Postponed from 08/17/2021 (Patient Refus ed) Start: 04-11-2023 End: 04-11-2024 MR Shoulder - left WO contrast MR shoulder left wo IV contrast Imaging Routine Traumatic partial tear of left biceps tendon, subsequent encounter Rotator cuff insufficiency, left Internal derangement of shoulder, left Expected: 04/11/2023, Expires: 04/11/2024 [employer] Work Phone: Comment on above: Expected: 04/11/2023, Expires: Start: 04-11-2023 End: 04-11-2023 Patient encounter procedure 04/11/2023 9:30 AM EDT Office Visit [facility] [address] [place] [address] Femi Ortiz DO [address] [place] [address] [facility] Start: 04-03-2023 End: 04-03-2024 XR Shoulder - left 2 Views [employer] Work Phone: Comment on above: Expected: 04/03/2023, Expires: 4 Once for 1 Occurrenc es starting 04/03/2023 until 04/03/2023 Start: 04-03-2023 End: 04-03-2023 Patient encounter procedure 04/03/2023 10:40 AM EDT Office Visit [facility] [address] [place] [address] Cody Butlre PA-C [address] [place] [address] [facility] Start: 02-09-2023 COVID-19 Vaccine ( season) COVID-19 Vaccine ( season) [facility] [email or web address] Start: 02-09-2023 Influenza vaccination Influenza Vaccine (#1) [facility] [employer] Start: 12-28-2022 End: 12-29-2023 CBC W Auto Differential panel - Blood CBC auto differential Lab Routine Essential hypertension Expected: 12/28/2022 (Approximate), Expires: 12/29/2023 [employer] Work Phone: Comment on above: Expected: 12/28/2022 (Approximate), Expi res: 12/29/2023 Start: 12-28-2022 End: 12-29-2023 Comprehensive metabolic 1998 panel - Serum or Plasma Comprehensive metabolic panel Lab Routine Essential hypertension Expected: 12/28/2022 (Approximate), Expires: 12/29/2023 [facility] Comment on above: Expected: 12/28/2022 (Approximate), Expi res: 12/29/2023 Start: 12-28-2022 End: 12-29-2023 Lipid 1996 panel - Serum or Plasma Lipid panel Lab Routine Hypercholesterolemia Expected: 12/28/2022 (Approximate), Expires: 12/29/2023 [facility] Comment on above: Expected: 12/28/2022 (Approximate), Expi res: 12/29/2023 Start: 12-28-2022 End: 12-29-2023 PSA screening PSA Screening Lab Routine Prostate cancer screening Expected: 12/28/2022 (Approximate), Expires: 12/29/2023 [facility] Comment on above: Expected: 12/28/2022 (Approximate), Expi res: 12/29/2023 Start: 12-28-2022 End: 12-29-2023 Thyrotropin [Units/volume] in Serum or Plasma TSH Lab Routine Hypercholesterolemia Expected: 12/28/2022 (Approximate), Expires: 12/29/2023 [facility] Comment on above: Expected: 12/28/2022 (Approximate), Expi res: 12/29/2023 Start: 12-28-2022 End: 12-28-2022 Patient encounter procedure 12/28/2022 Office Visit Family Medicine Femi Ortiz, DO [address] [place] [address] [facility] Start: 12-08-2022 Influenza vaccination Influenza Vaccine (#1) [facility] [email or web address] Comment on above: Postponed from 02/09/2022 (Patient Refus ed) Start: 03-02-2022 Medicare Annual Wellness (AWV) Medicare Annual Wellness (AWV) [facility] Start: 02-01-2022 Annual Wellness Visit (AWV) Annual Wellness Visit (AWV) [facility] Work Phone: Start: 01-04-2022 Creatinine measurement Creatinine monitoring [facility] Work Phone: Start: 01-04-2022 Potassium monitoring Potassium monitoring [facility] Work Phone: Start: 08-17-2021 Pneumococcal Vaccine: 50+ Years (2 of 2 - PCV) Pneumococcal Vaccine: 50+ Years (2 of 2 - PCV) [facility] Start: 08-17-2021 Pneumococcal Vaccine: 65+ Years (2 of 2 - PCV) Pneumococcal Vaccine: 65+ Years (2 of 2 - PCV) [facility] Start: 07-05-2021 End: 07-05-2021 Patient encounter procedure 07/05/2021 Office Visit Family Medicine Celestino Khanna, [address] [address] [phone] [facility] Start: 06-23-2021 COVID-19 Vaccine (4 - Booster for Moderna series) COVID-19 Vaccine (4 - Booster for Moderna series) [facility] Start: 06-23-2021 COVID-19 Vaccine (4 - Moderna series) COVID-19 Vaccine (4 - Moderna series) [facility] Start: 02-09-2021 Influenza vaccination Flu vaccine (#1) [facility] Work Phone: Start: 2012 RSV Immunization aged 60 or older (1 - 1-dose 60+ series) RSV Immunization aged 60 or older (1 - 1-dose 60+ series) [facility] Start: 2002 Shingles Vaccine (1 of 2) Shingles Vaccine (1 of 2) [facility] Work Phone: Start: 2002 Zoster Vaccines (1 of 2) Zoster Vaccines (1 of 2) [facility] Start: 1992 Diabetes screen Diabetes screen [facility] Work Phone: Start: 1971 DTaP/Tdap/Td vaccine (1 - Tdap) DTaP/Tdap/Td vaccine (1 - Tdap) [facility] Work Phone: Start: 1971 DTaP/Tdap/Td Vaccines (1 - Tdap) DTaP/Tdap/Td Vaccines (1 - Tdap) [facility] Start: 1970 Diabetes mellitus screening Diabetes Screening [facility] Start: 1970 Hepatitis C screening Hepatitis C Screening [facility] Start: 1964 Depression Screening Depression Screening [facility] Start: 1952 Hepatitis C screening Hepatitis C screen [facility] Work Phone: Start: 1952 Medicare Annual Wellness (AWV) Medicare Annual Wellness (AWV) [facility] Start: 1952 Screening for malignant neoplasm of colon [facility] Immunizations Immunization Date Immunization Notes Care Provider Fa cility 06-25-2024 Shingrix 50 MCG/0.5M L vaccine Femi Angel DO Work Phone: [facility] 08-17-2020 pneumococcal polysac charide vaccine, 23 valent Celestino Khanna DO Work Phone: [facility] Payers Date Payer Category Payer Self-pay [id number] 2017 Medicare [id number] 2017 Medicare supplementa l policy (as second payer) [employer] [id number] 2017 Private Health Insurance [id number] 2017 Medicare [id number] 2017 Private Health Insurance [facility] [id number] Unknown [id number] Unknown [id number] Social History Date Type Detail Facility Start: 01-04-2021 End: 10-21-2024 Tobacco smoking status NMIS Never smoker [facility] Start: 01-04-2021 Tobacco use and exposure Never used [facility] Start: 01-04-2021 End: 01-04-2025 Alcohol intake Current non-drinker of alcohol (finding) [facility] Work Phone: Start: 01-04-2021 End: 01-04-2024 Alcohol intake [facility] Work Phone: Start: 08-26-2018 End: 01-04-2021 History SDOH Alcohol Frequency 1 [facility] Work Phone: Start: 08-26-2018 History SDOH Social Connections Phone 4 [facility] Work Phone: Start: 08-26-2018 History SDOH Social Connections Get Together 3 [facility] Work Phone: Start: 08-26-2018 History SDOH Physica l Activity DPW 7 [facility] Work Phone: Start: 08-26-2018 History SDOH Physica l Activity MPS 6 [facility] Work Phone: Start: 01-04-2021 History SDOH Financial 5 [facility] Work Phone: Start: 08-26-2018 End: 11-24-2019 History SDOH IPV Fear 2 [facility] Work Phone: Start: 1950 Sex Assigned At Not on file [facility] Work Phone: Start: 12-24-2022 End: 01-04-2024 Tobacco use panel [facility] Start: 06-12-2022 End: 12-28-2022 Exposure to SARS-CoV-2 (event) Not sure [facility] How often do you nee d to have someone help you when you read instructions, pamphlets, or other written material from your doctor or pharmacy [SILS] Never [facility] Has the electric, Muse, oil, or water company threatened to shut off services in your home in past 12Mo No [facility] Do you belong to any clubs or organizations such as anabaptist groups, unions, fraternal or athletic groups, or school groups? Yes [facility] Are you now , , , , never or living with a partner? [facility] How often to you hav e a drink containing alcohol? Never [facility] Do you feel stress - tense, restless, nervous, or anxious, or unable to sleep at night because your mind is troubled all the time - these days [OSQ] Not at all [facility] (I/We) worried whenicolle er (my/our) food would run out before (I/we) got money to buy more. Never true [facility] How often to you hav e a drink containing alcohol? Monthly or less [facility] How many standard dr inks containing alcohol do you have on a typical day? 1 or 2 [facility] Start: 01-09-2022 Sex Male (finding) [facility] Start: 1950 Sex Assigned At Male [facility] Clinical Notes 06-22-2022 to 01-15-2025 Addendum Note - Femi Ortiz DO - 01/15/2025 7:51 AM EDTAddendum Note - Femi Ortiz DO - 01/15/2025 7:51 AM EDTAddendum Note - Kita Young - 01/14/2025 10:32 AM EDTPatient Instructions Note Date & Type Note Facility 01-15-2025 Note Addended by: FEMI SCHWAB on: 01/15/2025 07:51 AM Modules accepted: Orders [facility] 01-15-2025 Miscellaneous Notes Addended by: FEMI ORTIZ on: 01/15/2025 07:51 AM Modules accepted: Orders Addended by: KITA YOUNG on: 01/14/2025 10:32 AM Modules accepted: Orders Referral to Dr Herzog pended for dx and doctor's signature ----- Message from Femi Ortiz DO sent at 01/04/2025 1:28 PM EDT ----- CBC normal, glucose and liver function stable. Prostate cancer marker normal. LDL cholesterol has been persistently above goal of less than 100 and due to his hypertension I do recommend beginning a lipid-lowering med like low-dose Crestor. Let me know if he consents to that medicine and he certainly should follow better low-fat meal diet. However patient's creatinine is elevating over the last couple years reflecting renal insufficiency/failure due to longstanding hypertension. However it is worsening and I recommend getting a urinalysis to further evaluate. Of note, he had a normal renal ultrasound done 4 years ago. But I also recommending consulting a bait tier for an opinion on how to slow the progression. Mostly this is done by keeping his hypertension well-controlled, plenty of liquids and do not take OTC NSAIDs. Post a referral to nephrology if he agrees. Lastly, his EKG is normal and he is stable for his hernia surgery. Please send a copy for medical clearance to his general surgeon ----- Message ----- From: Margarita Gardiner MA Sent: 12/31/2024 8:22 AM EDT To: Femi Ortiz DO Message released to patient as written. Patient's further questions if applicable: Pt called in for clarification on which medications he should try for his ringing ears. Medications given to pt. Pt states he will try these and let provider know if he gets no relief in 2 weeks. Were all questions from office addressed or relayed to the patient from encounter: Yes Placed call to patient. Unable to reach them by phone to discuss lab results. Left detailed message to return call to discuss results. ----- Message from Femi Ortiz DO sent at 01/12/2025 12:30 PM EDT ----- Referred to bait tier for elevated creatinine. For his ringing in his ears he could try taking Flonase and Claritin daily for 2 weeks in a row and see what happens. If symptoms persist ENT referral. ----- Message ----- From: Alejandra Mustafa MA Sent: 01/12/2025 8:52 AM EDT To: Femi Ortiz DO ----- Message ----- From: Izzy Rao Sent: 01/09/2025 3:38 PM EDT To: [facility] Can Reforming Machine Operator ----- Message from Izzy Rao sent at 01/09/2025 3:38 PM EDT ----- Message released to patient as written. Patient's further questions if applicable: Pt returned call from office. Read Pt message as written. Pt expressed understanding. Pt decline Rx for low dose Crestor at this time states will revisit at next appt (06/01/25). Pt is ok with the referral for nephrology. Pt ginai mentioned he has been having some ringing in his ears Pt declined speaking with a nurse but would like to know if anything can be sent to help. Please advise Were all questions from office addressed or relayed to the patient from encounter: No Placed call to patient. Unable to reach them by phone to discuss lab results. Left detailed message to return call to discuss results. 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 Prostate cancer marker normal. LDL cholesterol has been persistently above goal of less than 100 and due to his hypertension I do recommend beginning a lipid-lowering med like low-dose Crestor. Let me know if he consents to that medicine and he certainly should follow better low-fat meal diet. However patient's creatinine is elevating over the last couple years reflecting renal insufficiency/failure due to longstanding hypertension. However it is worsening and I recommend getting a urinalysis to further evaluate. Of note, he had a normal renal ultrasound done 4 years ago. But I also recommending consulting a bait tier for an opinion on how to slow the progression. Mostly this is done by keeping his hypertension well-controlled, plenty of liquids and do not take OTC NSAIDs. Post a referral to nephrology if he agrees. Lastly, his EKG is normal and he is stable for his hernia surgery. Please send a copy for medical clearance to his general surgeon. Send a copy of his lab and EKG to his surgeon as well ----- Message ----- From: Jesus Quijano Lab Results In Sent: 01/01/2025 4:15 AM EDT To: Femi Ortiz DO documented in this encounter [facility] [email or web address] 01-14-2025 Note Addended by: KITA YOUNG on: 01/14/2025 10:32 AM Modules accepted: Orders [facility] [email or web address] 08-06-2025 Note Addended by: KITA YOUNG on: 01/14/2025 10:32 AM Modules accepted: Orders [facility] 01-14-2025 Miscellaneous Notes Addended by: KITA YOUNG on: 01/14/2025 10:32 AM Modules accepted: Orders Referral to Dr Herzog pended for dx and doctor's signature ----- Message from Femi Ortiz DO sent at 01/04/2025 1:28 PM EDT ----- CBC normal, glucose and liver function stable. Prostate cancer marker normal. LDL cholesterol has been persistently above goal of less than 100 and due to his hypertension I do recommend beginning a lipid-lowering med like low-dose Crestor. Let me know if he consents to that medicine and he certainly should follow better low-fat meal diet. However patient's creatinine is elevating over the last couple years reflecting renal insufficiency/failure due to longstanding hypertension. However it is worsening and I recommend getting a urinalysis to further evaluate. Of note, he had a normal renal ultrasound done 4 years ago. But I also recommending consulting a bait tier for an opinion on how to slow the progression. Mostly this is done by keeping his hypertension well-controlled, plenty of liquids and do not take OTC NSAIDs. Post a referral to nephrology if he agrees. Lastly, his EKG is normal and he is stable for his hernia surgery. Please send a copy for medical clearance to his general surgeon ----- Message ----- From: Margarita Gardiner MA Sent: 12/31/2024 8:22 AM EDT To: Femi Ortiz DO Message released to patient as written. Patient's further questions if applicable: Pt called in for clarification on which medications he should try for his ringing ears. Medications given to pt. Pt states he will try these and let provider know if he gets no relief in 2 weeks. Were all questions from office addressed or relayed to the patient from encounter: Yes Placed call to patient. Unable to reach them by phone to discuss lab results. Left detailed message to return call to discuss results. ----- Message from Femi Ortiz DO sent at 01/12/2025 12:30 PM EDT ----- Referred to bait tier for elevated creatinine. For his ringing in his ears he could try taking Flonase and Claritin daily for 2 weeks in a row and see what happens. If symptoms persist ENT referral. ----- Message ----- From: Alejandra Mustafa MA Sent: 01/12/2025 8:52 AM EDT To: Femi Ortiz DO ----- Message ----- From: Izzy Rao Sent: 01/09/2025 3:38 PM EDT To: [facility] [employer] Reforming Machine Operator ----- Message from Izzy Rao sent at 01/09/2025 3:38 PM EDT ----- Message released to patient as written. Patient's further questions if applicable: Pt returned call from office. Read Pt message as written. Pt expressed understanding. Pt decline Rx for low dose Crestor at this time states will revisit at next appt (06/01/25). Pt is ok with the referral for nephrology. Pt ginai mentioned he has been having some ringing in his ears Pt declined speaking with a nurse but would like to know if anything can be sent to help. Please advise Were all questions from office addressed or relayed to the patient from encounter: No Placed call to patient. Unable to reach them by phone to discuss lab results. Left detailed message to return call to discuss results. 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 Prostate cancer marker normal. LDL cholesterol has been persistently above goal of less than 100 and due to his hypertension I do recommend beginning a lipid-lowering med like low-dose Crestor. Let me know if he consents to that medicine and he certainly should follow better low-fat meal diet. However patient's creatinine is elevating over the last couple years reflecting renal insufficiency/failure due to longstanding hypertension. However it is worsening and I recommend getting a urinalysis to further evaluate. Of note, he had a normal renal ultrasound done 4 years ago. But I also recommending consulting a bait tier for an opinion on how to slow the progression. Mostly this is done by keeping his hypertension well-controlled, plenty of liquids and do not take OTC NSAIDs. Post a referral to nephrology if he agrees. Lastly, his EKG is normal and he is stable for his hernia surgery. Please send a copy for medical clearance to his general surgeon. Send a copy of his lab and EKG to his surgeon as well ----- Message ----- From: Jesus Quijano Lab Results In Sent: 01/01/2025 4:15 AM EDT To: Femi Ortiz DO documented in this encounter [facility] 01-14-[address] Herzog pended for dx and doctor's signature [facility] 01-14-2025 Telephone encounter Note Referral to Dr Herzog pended for dx and doctor's signature [facility] 01-14-2025 Telephone encounter Note ----- Message from Femi Ortiz DO sent at 01/04/2025 1:28 PM EDT ----- CBC normal, glucose and liver function stable. Prostate cancer marker normal. LDL cholesterol has been persistently above goal of less than 100 and due to his hypertension I do recommend beginning a lipid-lowering med like low-dose Crestor. Let me know if he consents to that medicine and he certainly should follow better low-fat meal diet. However patient's creatinine is elevating over the last couple years reflecting renal insufficiency/failure due to longstanding hypertension. However it is worsening and I recommend getting a urinalysis to further evaluate. Of note, he had a normal renal ultrasound done 4 years ago. But I also recommending consulting a bait tier for an opinion on how to slow the progression. Mostly this is done by keeping his hypertension well-controlled, plenty of liquids and do not take OTC NSAIDs. Post a referral to nephrology if he agrees. Lastly, his EKG is normal and he is stable for his hernia surgery. Please send a copy for medical clearance to his general surgeon ----- Message ----- From: Margarita Gardiner MA Sent: 12/31/2024 8:22 AM EDT To: Femi Ortiz DO [facility] 01-13-2025 Telephone encounter Note Message released to patient as written. Patient's further questions if applicable: Pt called in for clarification on which medications he should try for his ringing ears. Medications given to pt. Pt states he will try these and let provider know if he gets no relief in 2 weeks. Were all questions from office addressed or relayed to the patient from encounter: Yes [facility] 01-13-2025 Miscellaneous Notes Message released to patient as written. Patient's further questions if applicable: Pt called in for clarification on which medications he should try for his ringing ears. Medications given to pt. Pt states he will try these and let provider know if he gets no relief in 2 weeks. Were all questions from office addressed or relayed to the patient from encounter: Yes Placed call to patient. Unable to reach them by phone to discuss lab results. Left detailed message to return call to discuss results. ----- Message from Femi Ortiz DO sent at 01/12/2025 12:30 PM EDT ----- Referred to bait tier for elevated creatinine. For his ringing in his ears he could try taking Flonase and Claritin daily for 2 weeks in a row and see what happens. If symptoms persist ENT referral. ----- Message ----- From: Alejandra Mustafa MA Sent: 01/12/2025 8:52 AM EDT To: Femi Ortiz DO ----- Message ----- From: Izzy Rao Sent: 01/09/2025 3:38 PM EDT To: [facility] Clinical Can Reforming Machine Operator ----- Message from Izzy Rao sent at 01/09/2025 3:38 PM EDT ----- Message released to patient as written. Patient's further questions if applicable: Pt returned call from office. Read Pt message as written. Pt expressed understanding. Pt decline Rx for low dose Crestor at this time states will revisit at next appt (06/01/25). Pt is ok with the referral for nephrology. Pt alsi mentioned he has been having some ringing in his ears Pt declined speaking with a nurse but would like to know if anything can be sent to help. Please advise Were all questions from office addressed or relayed to the patient from encounter: No Placed call to patient. Unable to reach them by phone to discuss lab results. Left detailed message to return call to discuss results. 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 Prostate cancer marker normal. LDL cholesterol has been persistently above goal of less than 100 and due to his hypertension I do recommend beginning a lipid-lowering med like low-dose Crestor. Let me know if he consents to that medicine and he certainly should follow better low-fat meal diet. However patient's creatinine is elevating over the last couple years reflecting renal insufficiency/failure due to longstanding hypertension. However it is worsening and I recommend getting a urinalysis to further evaluate. Of note, he had a normal renal ultrasound done 4 years ago. But I also recommending consulting a bait tier for an opinion on how to slow the progression. Mostly this is done by keeping his hypertension well-controlled, plenty of liquids and do not take OTC NSAIDs. Post a referral to nephrology if he agrees. Lastly, his EKG is normal and he is stable for his hernia surgery. Please send a copy for medical clearance to his general surgeon. Send a copy of his lab and EKG to his surgeon as well ----- Message ----- From: Jesus Quijano Lab Results In Sent: 01/01/2025 4:15 AM EDT To: Femi Ortiz DO documented in this encounter [email or web address] 01-12-2025 Telephone encounter Note Placed call to patient. Unable to reach them by phone to discuss lab results. Left detailed message to return call to discuss results. [facility] 01-12-2025 Telephone encounter Note ----- Message from Femi Ortiz DO sent at 01/12/2025 12:30 PM EDT ----- Referred to bait tier for elevated creatinine. For his ringing in his ears he could try taking Flonase and Claritin daily for 2 weeks in a row and see what happens. If symptoms persist ENT referral. ----- Message ----- From: Alejandra Mustafa MA Sent: 01/12/2025 8:52 AM EDT To: Femi Ortiz DO ----- Message ----- From: Izzy Rao Sent: 01/09/2025 3:38 PM EDT To: [facility] Clinical [employer] Reforming Machine Operator ----- Message from Izzy Rao sent at 01/09/2025 3:38 PM EDT ----- [facility] 01-12-2025 Miscellaneous Notes Placed call to patient. Unable to reach them by phone to discuss lab results. Left detailed message to return call to discuss results. ----- Message from Femi Ortiz DO sent at 01/12/2025 12:30 PM EDT ----- Referred to bait tier for elevated creatinine. For his ringing in his ears he could try taking Flonase and Claritin daily for 2 weeks in a row and see what happens. If symptoms persist ENT referral. ----- Message ----- From: Alejandra Mustafa MA Sent: 01/12/2025 8:52 AM EDT To: Femi Ortiz DO ----- Message ----- From: Izzy Rao Sent: 01/09/2025 3:38 PM EDT To: [facility] Clinical Can Reforming Machine Operator ----- Message from Izzy Rao sent at 01/09/2025 3:38 PM EDT ----- Message released to patient as written. Patient's further questions if applicable: Pt returned call from office. Read Pt message as written. Pt expressed understanding. Pt decline Rx for low dose Crestor at this time states will revisit at next appt (06/01/25). Pt is ok with the referral for nephrology. Pt alsi mentioned he has been having some ringing in his ears Pt declined speaking with a nurse but would like to know if anything can be sent to help. Please advise Were all questions from office addressed or relayed to the patient from encounter: No Placed call to patient. Unable to reach them by phone to discuss lab results. Left detailed message to return call to discuss results. Please release information to patient ----- Message from Alejandra Robertson sent at 01/05/2025 7:16 AM EDT ----- ----- Message ----- From: Femi Ortiz DO Sent: 01/04/2025 1:31 PM EDT To: [facility] Clinical Can Reforming Machine Operator CBC normal, glucose and liver function stable. Prostate cancer marker normal. LDL cholesterol has been persistently above goal of less than 100 and due to his hypertension I do recommend beginning a lipid-lowering med like low-dose Crestor. Let me know if he consents to that medicine and he certainly should follow better low-fat meal diet. However patient's creatinine is elevating over the last couple years reflecting renal insufficiency/failure due to longstanding hypertension. However it is worsening and I recommend getting a urinalysis to further evaluate. Of note, he had a normal renal ultrasound done 4 years ago. But I also recommending consulting a bait tier for an opinion on how to slow the progression. Mostly this is done by keeping his hypertension well-controlled, plenty of liquids and do not take OTC NSAIDs. Post a referral to nephrology if he agrees. Lastly, his EKG is normal and he is stable for his hernia surgery. Please send a copy for medical clearance to his general surgeon. Send a copy of his lab and EKG to his surgeon as well ----- Message ----- From: Jesus Quijano Lab Results In Sent: 01/01/2025 4:15 AM EDT To: Femi Ortiz DO documented in this encounter [facility] 01-09-2025 Telephone encounter Note Message released to patient as written. Patient's further questions if applicable: Pt returned call from office. Read Pt message as written. Pt expressed understanding. Pt decline Rx for low dose Crestor at this time states will revisit at next appt (06/01/25). Pt is ok with the referral for nephrology. Pt alsi mentioned he has been having some ringing in his ears Pt declined speaking with a nurse but would like to know if anything can be sent to help. Please advise Were all questions from office addressed or relayed to the patient from encounter: No [facility] 01-09-2025 Miscellaneous Notes Message released to patient as written. Patient's further questions if applicable: Pt returned call from office. Read Pt message as written. Pt expressed understanding. Pt decline Rx for low dose Crestor at this time states will revisit at next appt (06/01/25). Pt is ok with the referral for nephrology. Pt alsi mentioned he has been having some ringing in his ears Pt declined speaking with a nurse but would like to know if anything can be sent to help. Please advise Were all questions from office addressed or relayed to the patient from encounter: No Placed call to patient. Unable to reach them by phone to discuss lab results. Left detailed message to return call to discuss results. 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 Prostate cancer marker normal. LDL cholesterol has been persistently above goal of less than 100 and due to his hypertension I do recommend beginning a lipid-lowering med like low-dose Crestor. Let me know if he consents to that medicine and he certainly should follow better low-fat meal diet. However patient's creatinine is elevating over the last couple years reflecting renal insufficiency/failure due to longstanding hypertension. However it is worsening and I recommend getting a urinalysis to further evaluate. Of note, he had a normal renal ultrasound done 4 years ago. But I also recommending consulting a bait tier for an opinion on how to slow the progression. Mostly this is done by keeping his hypertension well-controlled, plenty of liquids and do not take OTC NSAIDs. Post a referral to nephrology if he agrees. Lastly, his EKG is normal and he is stable for his hernia surgery. Please send a copy for medical clearance to his general surgeon. Send a copy of his lab and EKG to his surgeon as well ----- Message ----- From: Jesus Quijano Lab Results In Sent: 01/01/2025 4:15 AM EDT To: Femi Ortiz DO documented in this encounter [facility] 01-05-2025 Telephone encounter Note Placed call to patient. Unable to reach them by phone to discuss lab results. Left detailed message to return call to discuss results. 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 Prostate cancer marker normal. LDL cholesterol has been persistently above goal of less than 100 and due to his hypertension I do recommend beginning a lipid-lowering med like low-dose Crestor. Let me know if he consents to that medicine and he certainly should follow better low-fat meal diet. However patient's creatinine is elevating over the last couple years reflecting renal insufficiency/failure due to longstanding hypertension. However it is worsening and I recommend getting a urinalysis to further evaluate. Of note, he had a normal renal ultrasound done 4 years ago. But I also recommending consulting a bait tier for an opinion on how to slow the progression. Mostly this is done by keeping his hypertension well-controlled, plenty of liquids and do not take OTC NSAIDs. Post a referral to nephrology if he agrees. Lastly, his EKG is normal and he is stable for his hernia surgery. Please send a copy for medical clearance to his general surgeon. Send a copy of his lab and EKG to his surgeon as well ----- Message ----- From: Jesus Quijano Lab Results In Sent: 01/01/2025 4:15 AM EDT To: Femi Ortiz DO [email or web address] 01-05-2025 Miscellaneous Notes Placed call to patient. Unable to reach them by phone to discuss lab results. Left detailed message to return call to discuss results. 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 Prostate cancer marker normal. LDL cholesterol has been persistently above goal of less than 100 and due to his hypertension I do recommend beginning a lipid-lowering med like low-dose Crestor. Let me know if he consents to that medicine and he certainly should follow better low-fat meal diet. However patient's creatinine is elevating over the last couple years reflecting renal insufficiency/failure due to longstanding hypertension. However it is worsening and I recommend getting a urinalysis to further evaluate. Of note, he had a normal renal ultrasound done 4 years ago. But I also recommending consulting a bait tier for an opinion on how to slow the progression. Mostly this is done by keeping his hypertension well-controlled, plenty of liquids and do not take OTC NSAIDs. Post a referral to nephrology if he agrees. Lastly, his EKG is normal and he is stable for his hernia surgery. Please send a copy for medical clearance to his general surgeon. Send a copy of his lab and EKG to his surgeon as well ----- Message ----- From: Jesus Quijano Lab Results In Sent: 01/01/2025 4:15 AM EDT To: Femi Ortiz DO documented in this encounter [facility] 12-31-2024 History of Presen t illness Narrative Images from the original note were not included. [facility] - [address] [facility] [id number] Visit type: Established Patient Reason for Visit: Follow-up Assessment / Plan: Brando was seen today for follow-up. Diagnoses and all orders for this visit: Primary hypertension (Primary) Comments: Stable, continue amlodipine and metoprolol Orders: - CBC auto differential; Future - Comprehensive metabolic panel; Future - ECG 12 lead; Future - CBC auto differential - Comprehensive metabolic panel - ECG 12 lead Hypercholesterolemia Comments: Stable, better low-fat meals check lab Orders: - Lipid panel; Future - Lipid panel Gastroesophageal reflux disease without esophagitis Comments: Stable, continue pantoprazole Prostate cancer screening - PSA Total (Screening); Future - PSA Total (Screening) Bilateral recurrent inguinal hernia without obstruction or gangrene Comments: Stable for surgery Family history of prostate cancer Subjective: Patient ID: Brando Abrams is a 74 y.o. male. HPI hypertensive patient with history of renal insufficiency and acid reflux presents for overall checkup. Of note will be getting bilateral inguinal herniorrhaphy in January. Would need some preop clearance and lab work. Overall feeling well. Symptomatic of left side but surgeon feels he has a small right-sided hernia. Review of Systems no recent earache sore throat or cough. No chest pain or palpitations. Denies PND orthopnea claudication or edema. No breakthrough heartburn. No melena or blood. No constipation diarrhea. No change in urine flow. Does tell me his brother just was diagnosed and treated for prostate cancer. Allergies[1] Current Medications[2] Problem List[3] Social History Tobacco Use Smoking status: Never Smokeless tobacco: Never Substance Use Topics Alcohol use: No Alcohol/week: 0.0 standard drinks of alcohol Surgical History[4] Family History[5] Objective: BP 129/76 Pulse 73 Temp 36.9 C (98.4 F) Ht 6' (1.829 m) Wt 217 lb (98.4 kg) SpO2 97% BMI 29.43 kg/m Physical Exam Pleasant alert and cooperative. No JVD adenopathy or thyroid lesions. Normal oropharynx and eardrums. No carotid bruits. Heart is regular without murmurs. Lungs are clear. EKG normal sinus rhythm. No ischemia. Abdomen soft nontender without pain hepatosplenomegaly or masses. Small right inguinal hernia. Larger left inguinal hernia. Both are reducible. No prostate masses. Prostate smooth without nodules. No rectal masses. Extremities are pink without edema. [1] No Known Allergies [2] Current Outpatient Medications: amLODIPine (Norvasc) 10 MG tablet, TAKE ONE TABLET BY MOUTH EVERY DAY, Disp: 90 tablet, Rfl: 1 metoprolol succinate XL (Toprol-XL) 50 MG 24 hr tablet, TAKE ONE TABLET BY MOUTH EVERY MORNING, Disp: 90 tablet, Rfl: 1 pantoprazole (ProtoNix) 40 MG EC tablet, Take 40 mg by mouth every morning (before breakfast)., Disp: , Rfl: [3] Patient Active Problem List Diagnosis Hypertension Erectile dysfunction BPH with urinary obstruction Bilateral primary osteoarthritis of knee Hypercholesterolemia Family history of colon cancer in father Renal insufficiency Renal cyst MERNA on CPAP Family history of prostate cancer Bilateral recurrent inguinal hernia without obstruction or gangrene Gastroesophageal reflux disease without esophagitis [4] Past Surgical History: Procedure Laterality Date COLONOSCOPY 03/2020 - neg- due 2026 COLONOSCOPY W/ POLYPECTOMY 2016 Dr. Alexander EGD (HISTORICAL) Dr. Alexander for dysphagia , ? date TOTAL KNEE ARTHROPLASTY Right 05/2021 [place] TOTAL KNEE ARTHROPLASTY Left 07/2021 UMBILICAL HERNIA REPAIR 1959 [5] Family History Problem Relation Name Age of Onset Other (93429) Mother Meningitis, age 41 Dementia Father Gary age 77 Colon cancer Father Gary 75 Stroke Father Gary Heart disease Sister Maureen No Known Problems Sister Venus Atrial fibrillation Brother [place] Prostate cancer Brother Van 74 Dementia Brother Miki 72 alive age 74 No Known Problems Brother Chintan High Blood Pressure Son Colon cancer Maternal Grandmother No Known Problems Maternal Grandfather all late in life No Known Problems Paternal Grandmother No Known Problems Paternal Grandfather documented in this encounter [facility] 11-11-2024 Telephone encounter Note Sent fax to [facility] Home at [phone] [facility] 11-11-2024 Miscellaneous Notes Sent fax to [facility] Home at [phone] documented in this encounter [facility] 10-13-[address] Darrell tom pended for dx and doctor's signature [facility] 10-13-2024 Telephone encounter Note Referral to Dr Miller pended for dx and doctor's signature [facility] 10-13-2024 Miscellaneous Notes Referral to Dr Miller pended for dx and doctor's signature documented in this encounter [facility] 10-13-2024 History of Presen t illness Narrative Images from the original note were not included. [facility] - [address] [facility] [id number] Visit type: Established Patient Reason for Visit: Hernia (Concern in groin area ) and Immunizations (Pt declined Pneumococcal Vaccine) Assessment / Plan: Brando was seen today for hernia and immunizations. Diagnoses and all orders for this visit: Inguinal hernia of left side without obstruction or gangrene (Primary) Comments: New onset, minimally symptomatic, general surgical eval Primary hypertension Comments: Stable continue meds Subjective: Patient ID: Brando Abrams is a 74 y.o. male. 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 Not associated with pain emesis or change in bowel habits. Eating and voiding well. Review of Systems negative. Colonoscopy due in a couple years. No change in urine flow. No constipation diarrhea melena or blood. No dysuria hematuria. History of remote umbilical hernia repair. Blood pressure well at home No Known Allergies Current Outpatient Medications: amLODIPine (Norvasc) 10 MG tablet, TAKE ONE TABLET BY MOUTH EVERY DAY, Disp: 90 tablet, Rfl: 1 Arexvy 120 MCG/0.5ML reconstituted suspension, Inject 0.5 mL into the shoulder, thigh, or buttocks Once., Disp: , Rfl: metoprolol succinate XL (Toprol-XL) 50 MG 24 hr tablet, TAKE ONE TABLET BY MOUTH EVERY MORNING, Disp: 90 tablet, Rfl: 1 pantoprazole (ProtoNix) 40 MG EC tablet, Take 40 mg by mouth every morning (before breakfast)., Disp: , Rfl: Shingrix 50 MCG/0.5ML vaccine, Inject 50 mcg into the shoulder, thigh, or buttocks Once., Disp: , Rfl: Patient Active Problem List Diagnosis Hypertension Erectile dysfunction BPH with urinary obstruction Bilateral primary osteoarthritis of knee Hypercholesterolemia Family history of colon cancer in father Renal insufficiency Prostate cancer screening Renal cyst MERNA on CPAP Social History Tobacco Use Smoking status: Never Smokeless tobacco: Never Substance Use Topics Alcohol use: No Alcohol/week: 0.0 standard drinks of alcohol Past Surgical History: Procedure Laterality Date COLONOSCOPY 03/2020 - neg- due 2026 COLONOSCOPY W/ POLYPECTOMY 2016 Dr. Alexander EGD (HISTORICAL) Dr. Alexander for dysphagia , ? date TOTAL KNEE ARTHROPLASTY Right 05/2021 [place] TOTAL KNEE ARTHROPLASTY Left 07/2021 UMBILICAL HERNIA REPAIR 1960 Family History Problem Relation Name Age of Onset Other (72635) Mother Meningitis, age 41 Dementia Father Gary age 77 Colon cancer Father Gary 75 Stroke Father Gary Heart disease Sister Maureen No Known Problems Sister Venus Atrial fibrillation Brother [place] Dementia Brother Miki 72 alive age 74 No Known Problems Brother Chintan High Blood Pressure Son Colon cancer Maternal Grandmother No Known Problems Maternal Grandfather all late in life No Known Problems Paternal Grandmother No Known Problems Paternal Grandfather Objective: BP 126/78 Pulse 72 Temp 37.1 C (98.7 F) (Temporal) Ht 6' (1.829 m) Wt 227 lb (103 kg) SpO2 93% BMI 30.79 kg/m Physical Exam no neck masses or adenopathy. Recheck blood pressure excellent. Heart is regular without ectopy. Lungs are clear. Abdomen without pain hepatosplenomegaly or masses. Normal umbilicus. Moderate sized left inguinal hernia is nontender. No hepatosplenomegaly. Good bowel sounds. No guarding rigidity or rebound tenderness. No femoral bruit. Extremities are pink without edema documented in this encounter [facility] [employer] 2024 Telephone encounter Note Recent Visits Date Type Provider Dept 05/29/24 Office Visit Femi Ortiz DO [facility] 01/04/24 Office Visit Femi Ortiz DO [facility] Showing recent visits within past 365 days and meeting all other requirements Future Appointments No visits were found meeting these conditions. Showing future appointments within next 90 days and meeting all other requirements Requested Prescriptions Pending Prescriptions Disp Refills metoprolol succinate XL (Toprol-XL) 50 MG 24 hr tablet [Pharmacy Med Name: METOPROLOL SUCCINATE ER 50MG TB24] 90 tablet 1 Sig: TAKE ONE TABLET BY MOUTH EVERY MORNING amLODIPine (Norvasc) 10 MG tablet [Pharmacy Med Name: AMLODIPINE BESYLATE 10MG TABS] 90 tablet 1 Sig: TAKE ONE TABLET BY MOUTH EVERY DAY Provider: Femi Ortiz DO Verified pharmacy: yes Verified day(s) supplied: yes Verified refill(s) needed (previous prescription showing no refills in chart): Yes Have you received any controlled medications from any other provider? N/A Overdue for visit: No If yes - patient scheduled? N/A Most recent labs completed in chart? N/A None [facility] 2024 Miscellaneous Notes Recent Visits Date Type Provider Dept 05/29/24 Office Visit Femi Ortiz DO [facility] 01/04/24 Office Visit Femi Ortiz DO [facility] Showing recent visits within past 365 days and meeting all other requirements Future Appointments No visits were found meeting these conditions. Showing future appointments within next 90 days and meeting all other requirements Requested Prescriptions Pending Prescriptions Disp Refills metoprolol succinate XL (Toprol-XL) 50 MG 24 hr tablet [Pharmacy Med Name: METOPROLOL SUCCINATE ER 50MG TB24] 90 tablet 1 Sig: TAKE ONE TABLET BY MOUTH EVERY MORNING amLODIPine (Norvasc) 10 MG tablet [Pharmacy Med Name: AMLODIPINE BESYLATE 10MG TABS] 90 tablet 1 Sig: TAKE ONE TABLET BY MOUTH EVERY DAY Provider: Femi Ortiz DO Verified pharmacy: yes Verified day(s) supplied: yes Verified refill(s) needed (previous prescription showing no refills in chart): Yes Have you received any controlled medications from any other provider? N/A Overdue for visit: No If yes - patient scheduled? N/A Most recent labs completed in chart? N/A None documented in this encounter [facility] 05-29-2024 Note Referral pended for doctor's signature [facility] 05-29-2024 Telephone encounter Note Referral pended for doctor's signature [facility] 05-29-2024 Miscellaneous Notes Referral pended for doctor's signature documented in this encounter [facility] 05-29-2024 History of Presen t illness Narrative Images from the original note were not included. [facility] - [address] [facility] [address] Dept: [phone] Dept Chief Complaint: Brando Abrams is an 73 y.o. male here for an annual wellness visit. Hypertensive patient with knee arthritis and acid reflux presents for checkup. Overall feeling well. No change in family history. Assessment/Plan : Problem List Items Addressed This Visit Hypertension Bilateral primary osteoarthritis of knee MERNA on CPAP Other Visit Diagnoses Encounter for subsequent annual wellness visit (AWV) in Medicare patient - Primary Paresthesia of hand, bilateral Gastroesophageal reflux disease without esophagitis I have reviewed and reconciled the medication list with the patient today. Current Outpatient Medications Medication Sig Dispense Refill amLODIPine (Norvasc) 10 MG tablet Take 1 tablet (10 mg) by mouth daily. 90 tablet 1 metoprolol succinate XL (Toprol-XL) 50 MG 24 hr tablet Take 1 tablet (50 mg) by mouth every morning. 90 tablet 1 pantoprazole (ProtoNix) 40 MG EC tablet Take 40 mg by mouth every morning (before breakfast). No current facility-administered medications for this visit. Also reviewed during this visit: Allergies Meds Problems Med Hx Fam Hx The following health maintenance schedule was reviewed with the patient and provided in printed form in the after visit summary: Health Maintenance Topic Date Due Hepatitis C Screening Never done Diabetes Screening Never done DTaP/Tdap/Td Vaccines (1 - Tdap) Never done Zoster Vaccines (1 of 2) Never done Pneumococcal Vaccine: 50+ Years (2 of 2 - PCV) 08/17/2021 Medicare Annual Wellness (AWV) 03/02/2022 Influenza Vaccine (1) Never done COVID-19 Vaccine ( - 2023- season) 2024 Depression Screening 05/28/2025 RSV Immunization for Adults (1 - 1-dose 75+ series) 2027 Lipid Panel 07/05/2028 Colorectal Cancer Screening 02/02/2030 RSV Immunization under 20 Months Aged Out HIB Vaccines Aged Out Hepatitis B Vaccines Aged Out IPV Vaccines Aged Out Hepatitis A Vaccines Aged Out Meningococcal Vaccine Aged Out Rotavirus Vaccines Aged Out HPV Vaccines Aged Out List of current healthcare providers: Patient Care Team: Femi Ortiz DO as PCP - General (Family Medicine) No orders of the defined types were placed in this encounter. Review of Systems no constitutional symptoms. No recent earache sore throat or cough. No chest pain or dyspnea. No heartburn on meds. No abdominal complaints. He is interested in getting colonoscopy every 5 years due to his family history of colon cancer. Would like referral to Dr. Alexander. No change in urine flow. Prostate cancer screening up-to-date. Only concern is bilateral hand numbness when he turns in bed. No neck or radicular pain. No strength loss. No carpal tunnel symptoms. No sense of weakness and no lower extremity concerns Physical Exam The physical exam is generally normal. Patient appears well, alert and oriented x 3, pleasant, cooperative. Vitals are as noted. No carotid bruits. Neck supple, no abnormal adenopathy, thyroid lesions or masses. Ears, nose and throat are normal without acute findings. Lungs are clear to auscultation. Heart is regular, without murmurs, gallops or ectopy. Abdomen is soft, non tender, without masses, hepatosplenomegaly, or bruits. Normal BS evident. Extremities are normal without edema. Peripheral pulses are fair. No worrisome skin lesions. Screening neurological exam is normal without focal deficits. Negative Spurling's. No Tinel's or Phalen's. Reflexes normal. There is no motor or sensory loss of the hands or fingers. Color and temperature is normal Objective : BP 137/77 (BP Location: Right arm, Patient Position: Sitting, BP Cuff Size: Large adult) Pulse 72 Temp 36.3 C (97.4 F) (Temporal) Ht 6' (1.829 m) Wt 224 lb 6.4 oz (102 kg) SpO2 95% BMI 30.43 kg/m No results found. Subjective : Health Risk Assessment: General: General In general, how would you say your health is?: Very good In the past 7 days, have you experienced any of the following: New or Increased Pain, New or Increased Fatigue, Loneliness, Social Isolation, Stress or Anger?: No Do you get the social and emotional suppport you need?: Yes Health Habits/Nutrition: Health Habits / Nutrition On average, how many days per week do you engage in moderate to strenous exercise (like a brisk walk)?: 5 days On average, how man minutes do you engage in exercise at this level?: 60 min Have you lost any weight without trying in the past 3 months? : No Have you seen the dentist within the past year?: Yes Hearing/ Vision: Hearing / Vision Do you or your family notice any trouble with your hearing that hasn't been managed with hearing aids?: No Do you have difficulty driving, watching TV, or doing any of your daily activities because of your eyesight?: No Have you had an eye exam within the past year?: Yes No results found. Safety: Safety Do you have a working smoke detector?: Yes Do you have any tripping hazards - loose or unsecured carpets or rugs?: No Do you have any tripping hazards - clutter in doorways, halls, or stairs?: No Do you have either shower bars, grab bars, non-slip mats or non-slip surfaces in your shower or bathtub? : Yes Do all your stairways have a railing or banister? : Yes Do you fasten your seatbelt when you are in a car?: Yes ADL: ADL In the past 7 days, did you need help from others to perform any of the following everyday activities: Eating, dressing, grooming,bathing, toileting, or walking / balance? : No In the past 7 days, did you need help from others to take care of any of the following: laundry, housekeeping, banking / finances,shopping, telephone use, food preparation, transportation, or taking medications? : No Living Will: Living Will Do you have a living will?: Yes Cognitive: Cognitive Screening: Mini-Cog Clock Drawing Test (CDT): 2 Words Recalled: 3 Total Score: 5 Total Score Interpretation: Normal Mini-Cog Hypertension: No Fall Risk: Fall Risk One or more falls in the last year:: No Advised to use a cane or walker to get around safely:: No Feels unsteady when walking:: No Steadies self on furniture while walking at home:: No Worried about falling:: No Depression Screening: Over the past 2 weeks, how often have you been bothered by any of the following problems? Little interest or pleasure in doing things: Not at all Feeling down, depressed, or hopeless: Not at all Patient Health Questionnaire-2 Score: 0 Interventions: Patient declines any further evaluation / treatment for this issue Tobacco Use: Social History Tobacco Use Smoking Status Never Smokeless Tobacco Never Alcohol Use: Audit Alcohol Screening Q1: How often do you have a drink containing alcohol?: Monthly or less Q2: How many drinks containing alcohol do you have on a typical day when you are drinking?: 1 or 2 Q3: How often do you have six or more drinks on one occasion?: Never Audit-C Score: 1 Skip to questions 9-10?: 1 Q4: How often during the last year have you found that you were not able to stop drinking once you had started?: Never Q5: How often during the last year have you failed to do what was normally expected from you because of drinking?: Never Q6: How often during the last year have you needed an alcoholic drink first thing in the morning to get yourself going after a night of heavy drinking?: Never Q7: How often during the last year have you had a feeling of guilt or remorse after drinking?: Never Q8: How often during the last year have you been unable to remember what happened the night before because you had been drinking?: Never Q9: Have you or someone else been injured as a result of your drinking?: No Q10: Has a relative, friend, doctor, or another health professional expressed concern about your drinking or suggested you cut down?: No Audit Total Score: 1 1. MERNA on CPAP Stable on CPAP 2. Bilateral primary osteoarthritis of knee Stable 3. Primary hypertension Stable on amlodipine and metoprolol 4. Encounter for subsequent annual wellness visit (AWV) in Medicare patient (Primary) Low-carb and low-fat meals walk as tolerated 150 minutes/week 5. Paresthesia of hand, bilateral Recurrent but mild and resolves quickly. Call for C-spine x-ray no better 6. Gastroesophageal reflux disease without esophagitis Stable on Protonix 7. Colon cancer screening- GI ref early at his req- documented in this encounter [email or web address] 05-29-2024 Instructions Femi Ortiz DO - 05/29/2024 10:30 AM EST Personalized Preventative Plan for Brando Abrams - 05/29/2024 Medicare offers a range of preventative health benefits. Some of the tests and screenings are paid in full while others may be subject to a deductible, co-insurance, and / or copay. Some of these benefits include a comprehensive review of your medical history including lifestyle, illnesses that may run in your family, and various assessments and screenings as appropriate. After reviewing your medical record and screening and assessments performed today, your provider may have ordered immunizations, labs, imaging, and / or referrals for you. A list of these orders (if applicable) as well as your Preventative Care list are included within your After Visit Summary for your review. Other Preventative Recommendations: A preventive eye exam by an personalization specialist is recommended every 1-2 years to screen for glaucoma, cataracts, macular degeneration, and other eye disorders. A preventive dental visit is recommended every 6 months. Try to get at least 150 minutes of exercise per week or 10,000 steps per day on a pedometer. You need 1200-1500mg of calcium and 6028-7774 international units of vitamin D per day. It is possible to meet your calcium requirement with diet alone, but a vitamin D supplement is usually necessary to meet this goal. When exposed to the sun, use a sunscreen that protects against both UVA and UVB radiation with an SPF of 30 or greater. Reapply every 2-3 hours or after sweating, drying off with a towel, or swimming. Always wear a seat belt when traveling in a car. Always wear a helmet when riding a bicycle or a motorcycle documented in this encounter [email or web address] [email or web address] 01-04-2024 History of Presen t illness Narrative Images from the original note were not included. [facility] [address] [facility] [id number] Visit type: Established Patient Reason for Visit: Follow-up (6 month) Assessment / Plan: Brando was seen today for follow-up. Diagnoses and all orders for this visit: Hypercholesterolemia (Primary) Comments: Uncontrolled, follow better low-fat meals he defers statin Orders: - Basic metabolic panel; Future - Basic metabolic panel Primary hypertension Comments: Stable, continue metoprolol and amlodipine MERNA on CPAP Comments: Stable, improved on CPAP Prostate cancer screening - PSA Total (Screening); Future - PSA Total (Screening) Family history of cancer Renal insufficiency Comments: Stable, encourage more liquids and avoid NSAIDs Other orders - amLODIPine (Norvasc) 10 MG tablet; Take 1 tablet (10 mg) by mouth daily. - metoprolol succinate XL (Toprol-XL) 50 MG 24 hr tablet; Take 1 tablet (50 mg) by mouth every morning. Subjective: Patient ID: Brando Abrams is a 73 y.o. male. HPI hypertensive patient with history of BPH and renal insufficiency now treated with CPAP for apnea presents for checkup. He does feel better. More energetic. No recent respiratory infections. Denies any cardiovascular complaints does need CANDELARIA and PSA. Review of Systems denies recent earache sore throat or cough. No chest pain or dyspnea. No PND orthopnea claudication or edema. No heartburn or abdominal pain. Bowels are regular. Normal blood. Colonoscopy up-to-date. Nocturia x 1. Mild postvoid dribbling. No dysuria or hematuria. No change in arthralgias. Overall pretty positive and upbeat. Does not admit to drinking whole milk does have elevated cholesterol. Not interested in statin therapy No Known Allergies Current Outpatient Medications on File Prior to Visit Medication Sig Dispense Refill pantoprazole (ProtoNix) 40 MG EC tablet Take 40 mg by mouth every morning (before breakfast). [DISCONTINUED] amLODIPine (Norvasc) 10 MG tablet Take 1 tablet (10 mg) by mouth daily. 90 tablet 1 [DISCONTINUED] metoprolol succinate XL (Toprol-XL) 50 MG 24 hr tablet Take 1 tablet (50 mg) by mouth every morning. 90 tablet 1 No current facility-administered medications on file prior to visit. Patient Active Problem List Diagnosis Hypertension Erectile dysfunction BPH with urinary obstruction Bilateral primary osteoarthritis of knee Hypercholesterolemia Family history of colon cancer in father Renal insufficiency Prostate cancer screening Renal cyst MERNA on CPAP Social History Tobacco Use Smoking status: Never Smokeless tobacco: Never Substance Use Topics Alcohol use: No Alcohol/week: 0.0 standard drinks of alcohol Past Surgical History: Procedure Laterality Date COLONOSCOPY 03/2020 - neg- due 2026 COLONOSCOPY W/ POLYPECTOMY 2016 Dr. Alexander EGD (HISTORICAL) Dr. Alexander for dysphagia , ? date TOTAL KNEE ARTHROPLASTY Right 05/2021 [facility] TOTAL KNEE ARTHROPLASTY Left 07/2021 UMBILICAL HERNIA REPAIR Family History Problem Relation Name Age of Onset Other (32081) Mother Meningitis, age 41 Dementia Father Gary age 77 Colon cancer Father Gary 75 Stroke Father Gary No Known Problems Sister Maureen No Known Problems Sister Venus Atrial fibrillation Brother Van Dementia Brother Miki 72 No Known Problems Brother Chintan High Blood Pressure Son No Known Problems Maternal Grandmother colon ca, No Known Problems Maternal Grandfather No Known Problems Paternal Grandmother No Known Problems Paternal Grandfather Objective: BP 130/78 (BP Location: Left arm, Patient Position: Sitting, BP Cuff Size: Large adult) Pulse 66 Temp 36.6 C (97.9 F) (Temporal) Ht 6' (1.829 m) Wt 222 lb 6.4 oz (101 kg) SpO2 95% BMI 30.16 kg/m Physical Exam The physical exam is generally normal. Patient appears well, alert and oriented x 3, pleasant, cooperative. Vitals are as noted. No carotid bruits. Neck supple, no abnormal adenopathy, thyroid lesions or masses. Ears, nose and throat are normal without acute findings. Lungs are clear to auscultation. Heart is regular, without murmurs, gallops or ectopy. Abdomen is soft, non tender, without masses, hepatosplenomegaly, or bruits. Normal BS evident. Extremities are normal without edema. Peripheral pulses are fair. No worrisome skin lesions. Screening neurological exam is normal without focal deficits. Prostate exam without nodules. No rectal masses. Normal sphincter tone documented in this encounter [facility] 01-04-2024 Instructions Femi Ortiz DO - 01/04/2024 9:00 AM EDT Try to cut down dairy products, fried foods and whole milk. documented in this encounter [facility] 12-05-2023 Telephone encounter Note Images from the original note were not included. Called patient to review CPAP device download. Went to voicemail. Left voicemail stating that device settings are appropriate. Residual AHI is reduced to 3.3/h. There is intermittent high leak which can be resolved by troubleshooting with the mask. Given that he is symptomatically better an residual AHI is low, we will continue current settings of auto CPAP 5-20 cm H2O. Follow-up can be annual unless new issues arise in the interim. Instructed patient to call back with any questions or concerns. Please schedule I year follow-up with me. Thank you [facility] 12-05-2023 Miscellaneous Notes Images from the original note were not included. Called patient to review CPAP device download. Went to voicemail. Left voicemail stating that device settings are appropriate. Residual AHI is reduced to 3.3/h. There is intermittent high leak which can be resolved by troubleshooting with the mask. Given that he is symptomatically better an residual AHI is low, we will continue current settings of auto CPAP 5-20 cm H2O. Follow-up can be annual unless new issues arise in the interim. Instructed patient to call back with any questions or concerns. Please schedule I year follow-up with me. Thank you documented in this encounter [facility] 12-05-2023 History of Presen t illness Narrative [facility] [place] ESTABLISHED PATIENT VISIT 12/05/2023 CHIEF COMPLAINT/REASON FOR REFERRAL: Chief Complaint Patient presents with Sleep Apnea History of Present Illness: Brando Abrams presents for follow up of MERNA. He has newly started treatment with autoCPAP [id number]. HSAT was performed on 09/05/2023. Demonstrated at least moderate severity MERNA with overall CASIE of 22.8/h. Significant positional variation with supine CASIE of 31.6/h and nonsupine CASIE of 10.2/h. Total monitoring time was 575 minutes. However, the patient says he thinks he only slept for at most 4 hours at night. He remembers laying awake for long periods during that night. Therefore the study may underestimate MERNA severity. The patient obtained his CPAP device from [employer]. He is using a nasal pillows interface. He has noticed a significant improvement in his sleep quality. Says he wakes up less frequently at night. Notes improved daytime energy. 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 Occasionally gets nasal congestion, but has adjusted the humidity level to deal with this. Otherwise, denies any adverse effects from CPAP. DME: [facility] at home Using nasal pillows [place] Sleepiness Scale Sitting and reading: Moderate chance of dozing Watching TV: Moderate chance of dozing Sitting, inactive in a public place (e.g. a theatre or a meeting): Slight chance of dozing As a passenger in a car for an hour without a break: Slight chance of dozing Lying down to rest in the afternoon when circumstances permit: Slight chance of dozing Sitting and talking to someone: Would never doze Sitting quietly after a lunch without alcohol: Slight chance of dozing In a car, while stopped for a few minutes in traffic: Would never doze Total score: 8 Assessment and Plan: 1. MERNA (obstructive sleep apnea) -Symptomatically improved on auto CPAP 5-20 cm H2O. However, we do not have a download from his device. His DME provider did not send one to his in he did not bring his device in with him today. He will send me the serial number on his [employer] device once he gets home in I will try to access it remotely to confirm treatment efficacy. Will reach out to [facility] again to get device download and to get remote access to his device. Will follow-up with patient over the phone after I get the device download. Subsequent follow-up to be determined at that point. Parveen Stanley MD Pulmonary, Critical Care, and Sleep Medicine Portions of the information within this encounter were entered using an electronic dictation system. Best attempts were made to edit/proofread the information prior to note completion. Despite the review of information, some errors may remain. If there are questions related to the information contained within the note please contact the signing physician directly. PastMedical History Past Medical History: Diagnosis Date Bilateral primary osteoarthritis of knee s/p bilat knee repl per Dr. Minaya ED (erectile dysfunction) Family history of colon cancer in father 12/28/2022 H/O colonoscopy 01/2020 Dr. Alexander- neg- due 2026 Hypercholesterolemia Hypertension Prostate cancer screening 12/2022 Renal cyst 2020 per [facility] Renal insufficiency 2019 mild elev creat- [facility] renals w/ mild changes Rotator cuff tendonitis, left 2022 Dr. Remigio murphy - no sign changes on MRI Past Surgical History Past Surgical History: Procedure Laterality Date COLONOSCOPY 03/2020 - neg- due 2026 COLONOSCOPY W/ POLYPECTOMY 2016 Dr. Alexander EGD (HISTORICAL) Dr. Alexander for dysphagia , ? date TOTAL KNEE ARTHROPLASTY Right 05/2021 [place] TOTAL KNEE ARTHROPLASTY Left 07/2021 UMBILICAL HERNIA REPAIR Allergies No Known Allergies Medications Current Outpatient Medications: amLODIPine (Norvasc) 10 MG tablet, Take 1 tablet (10 mg) by mouth daily., Disp: 90 tablet, Rfl: 1 metoprolol succinate XL (Toprol-XL) 50 MG 24 hr tablet, Take 1 tablet (50 mg) by mouth every morning., Disp: 90 tablet, Rfl: 1 pantoprazole (ProtoNix) 40 MG EC tablet, Take 40 mg by mouth every morning (before breakfast)., Disp: , Rfl: Social History Social History Socioeconomic History Marital status: Spouse name: Not on file Number of children: Not on file Years of education: Not on file Highest education level: Not on file Occupational History Not on file Tobacco Use Smoking status: Never Smokeless tobacco: Never Substance and Sexual Activity Alcohol use: No Alcohol/week: 0.0 standard drinks of alcohol Drug use: No Sexual activity: Not on file Other Topics Concern Not on file Social History Narrative to Joey , NS or ETOH. Has 2 sons, Moses and Arnaud and one dtr Suyapa , 11 GC. 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, son Moess now owns his farm Social Determinants of Health Financial Resource Strain: Low Risk (01/04/2021) Received from [facility] Overall Financial Resource Strain (CARDIA) Difficulty of Paying Living Expenses: Not hard at all Food Insecurity: No Food Insecurity (01/04/2021) Received from [facility] Hunger Vital Sign Worried About Running Out of Food in the Last Year: Never true Ran Out of Food in the Last Year: Never true Transportation Needs: No Transportation Needs (11/24/2019) Received from [facility] PRAPARE - Transportation Lack of Transportation (Medical): No Lack of Transportation (Non-Medical): No Physical Activity: Sufficiently Active (11/24/2019) [facility] Exercise Vital Sign Days of Exercise per Week: 7 days Minutes of Exercise per Session: 60 min Stress: No Stress Concern Present (11/24/2019) Re[facility] from [facility] [place] [facility] - Occupational Stress Questionnaire Feeling of Stress : Not at all Social Connections: Socially Integrated (11/24/2019) [facility] Social Connection and Isolation Panel [NHANES] Frequency of Communication with Friends and Family: Three times a week Frequency of Social Gatherings with Friends and Family: Twice a week Attends Uatsdin Services: More than 4 times per year Active Member of Clubs or Organizations: Yes Attends Club or Organization Meetings: More than 4 times per year Marital Status: Intimate Partner Violence: Not on file Housing Stability: Not on file FamilyHistory Family History Problem Relation Name Age of Onset Other (46976) Mother Meningitis, age 41 Dementia Father Gary age 77 Colon cancer Father Gary 75 Stroke Father aGry No Known Problems Sister Maureen No Known Problems Sister Venus Atrial fibrillation Brother [place] Dementia Brother Miki 72 No Known Problems Brother Chintan High Blood Pressure Son No Known Problems Maternal Grandmother No Known Problems Maternal Grandfather No Known Problems Paternal Grandmother No Known Problems Paternal Grandfather Review of Systems Review of Systems All other systems reviewed and are negative. Physical Exam Vitals: 12/05/23 1025 BP: (!) 146/76 Pulse: 68 SpO2: 98% Weight: 222 lb (101 kg) Height: 6' (1.829 m) Physical Exam Constitutional: General: He is not in acute distress. Appearance: He is well-developed. He is not ill-appearing. HENT: Head: Normocephalic and atraumatic. Right Ear: External ear normal. Left Ear: External ear normal. Nose: Nose normal. Mouth/Throat: Mouth: Mucous membranes are moist. Pharynx: Oropharynx is clear. No oropharyngeal exudate. Eyes: General: No scleral icterus. Right eye: No discharge. Left eye: No discharge. Conjunctiva/sclera: Conjunctivae normal. Cardiovascular: Rate and Rhythm: Normal rate and regular rhythm. Pulses: Normal pulses. Heart sounds: Normal heart sounds. No murmur heard. Pulmonary: Effort: Pulmonary effort is normal. No respiratory distress. Breath sounds: Normal breath sounds. No stridor. No wheezing or rhonchi. Abdominal: General: There is no distension. Palpations: Abdomen is soft. Tenderness: There is no abdominal tenderness. Musculoskeletal: Right lower leg: No edema. Left lower leg: No edema. Lymphadenopathy: Cervical: No cervical adenopathy. Skin: General: Skin is warm and dry. Coloration: Skin is not jaundiced. Neurological: Mental Status: He is alert and oriented to person, place, and time. Mental status is at baseline. Psychiatric: Mood and Affect: Mood normal. Behavior: Behavior normal. LABS and Studies: Available studies were personally reviewed. Salient findings summarized in HPI & A/P Imaging: CXR portable: No results found for this or any previous visit. CXR (2V): Results for orders placed during the hospital encounter of 04/03/23 XR chest 2 views Narrative Patient Name: BRANDO ABRAMS : 1950 [facility]#: [id number] Exam Date/Time: 04/03/2023 12:04 Procedure: XR CHEST 2 VIEWS Ordering Provider: BUTLER JAMES Reason For Exam: cough and congestion CHEST, PA & LATERAL: INDICATION: Cough and congestion COMPARISON: No previous studies are available for comparison. PA and lateral views of the chest were obtained. The heart is normal in size. The mediastinal silhouette is normal. The lungs are clear. There are no effusions or infiltrates. There is no pleural thickening. The osseous structures are unremarkable. Impression Negative chest. Report Dictated on Electronically Signed By: Bud Ceron DO Electronically Signed Date/Time: 04/03/2023 2:[address] Chest: No results found for this or any previous visit. CTA Chest: No results found for this or any previous visit. Other Studies: Reviewed and as per electronic record. CxR/CT images personally reviewed by me when available; salient findings summarized in A/P. PFT's: Pulmonary Functions Testing Results: No results found for: FEV1, FVC, [id number], TLC, DLCO No results found for: FEV1, FVC, [id number], TLC, DLCO documented in this encounter [facility] 10-17-2023 Telephone encounter Note Tests cancelled [facility] 10-17-2023 Miscellaneous Notes Tests cancelled Ok to cancel? We have been unable to reach your patient to schedule their testing. Test Name: Mri left shoulder without 1st Attempt: marily pt and stated this was already taken care of not needed anymore 10/16/23 We have been unable to reach your patient to schedule their testing. Test Name: exercise stress test 1st Attempt: per patient stated this test isnt needed anymore 10/16/23 documented in this encounter [facility] 10-16-2023 Telephone encounter Note Ok to cancel? [facility] 10-16-2023 Telephone encounter Note We have been unable to reach your patient to schedule their testing. Test Name: Mri left shoulder without 1st Attempt: sw pt and stated this was already taken care of not needed anymore 10/16/23 [facility] 10-16-2023 Telephone encounter Note We have been unable to reach your patient to schedule their testing. Test Name: exercise stress test 1st Attempt: per patient stated this test isnt needed anymore 10/16/23 [facility] 10-02-2023 History of Presen t illness Narrative Images from the original note were not included. [facility] [place] ESTABLISHED PATIENT VISIT 10/02/2023 CHIEF COMPLAINT/REASON FOR REFERRAL: Chief Complaint Patient presents with Sleep Apnea Patient was identified and seen today via Telehealth by agreement and consent. I used the following Telehealth technology: Audio capability only. Total length of call 12 minutes. The patient was offered and advised video for a more comprehensive evaluation, but the patient declined or was unable to use video. Patient location: Patient Location: Home. This patient encounter is appropriate and reasonable under the circumstances: transportation issues . The patient has been advised of the potential risks and limitations of this mode of treatment (including but not limited to the absence of in-person examination) and has agreed to be treated in a remote fashion in spite of them. Any and all of the patient's/patient's family's questions on this issue have been answered and I have made no promises or guarantees to the patient. The patient has also been advised to contact this office for worsening conditions or problems, and seek emergency medical treatment and/or call 911 if the patient deems either necessary. The patient stated that they are currently in the state [facility]. If the patient is a minor, permission has been obtained by the parent or guardian for the patient to receive medical care at this visit. History of Present Illness: Brando Abrams presents for follow-up of obstructive sleep apnea. I initially saw him on 08/29/2019 for. Chief complaint at that time were very loud snoring with reporting witnessed apneic episodes and daytime fatigue. To evaluate further, we proceeded to do a home sleep apnea test. HSAT was performed on 09/05/2023. Demonstrated at least moderate severity MERNA with overall CASIE of 22.8/h. Significant positional variation with supine CASIE of 31.6/h and nonsupine CASIE of 10.2/h. Total monitoring time was 575 minutes. However, the patient says he thinks he only slept for at most 4 hours at night. He remembers laying awake for long periods during that night. Therefore the study may underestimate MERNA severity. The patient continues to struggle with frequent nocturnal awakenings. His [id number] recently got a new CPAP device. He is open to using CPAP himself. Assessment and Plan: 1. MERNA (obstructive sleep apnea) -Discussed findings of sleep study in detail with the patient. Discussed adverse long-term health outcomes of untreated moderate to severe obstructive sleep apnea, primarily due to cardiovascular health increased risk of arrhythmias and stroke. Patient is agreeable to using CPAP. -Prescription sent for auto CPAP 5-20 cmH2O with nasal pillows interface. -Follow-up with me in 8-12 weeks with device download. - DME order for (specify) as OP Parveen Stanley MD Pulmonary, Critical Care, and Sleep Medicine Portions of the information within this encounter were entered using an electronic dictation system. Best attempts were made to edit/proofread the information prior to note completion. Despite the review of information, some errors may remain. If there are questions related to the information contained within the note please contact the signing physician directly. PastMedical History Past Medical History: Diagnosis Date Bilateral primary osteoarthritis of knee s/p bilat knee repl per Dr. Minaya ED (erectile dysfunction) Family history of colon cancer in father 12/28/2022 H/O colonoscopy 01/2020 Dr. Alexander- neg- due 2026 Hypercholesterolemia Hypertension Prostate cancer screening 12/2022 Renal cyst 2019 per [facility] Renal insufficiency 2019 mild elev creat- [facility] renals w/ mild changes Rotator cuff tendonitis, left 2022 Dr. Remigio murphy - no sign changes on MRI Past Surgical History Past Surgical History: Procedure Laterality Date COLONOSCOPY 03/2020 - neg- due 2026 COLONOSCOPY W/ POLYPECTOMY 2016 Dr. Alexander EGD (HISTORICAL) Dr. Alexander for dysphagia , ? date TOTAL KNEE ARTHROPLASTY Right 05/2021 [facility] TOTAL KNEE ARTHROPLASTY Left 07/2021 UMBILICAL HERNIA REPAIR Allergies No Known Allergies Medications Current Outpatient Medications: amLODIPine (Norvasc) 10 MG tablet, Take 1 tablet (10 mg) by mouth daily., Disp: 90 tablet, Rfl: 1 metoprolol succinate XL (Toprol-XL) 50 MG 24 hr tablet, Take 1 tablet (50 mg) by mouth every morning., Disp: 90 tablet, Rfl: 1 pantoprazole (ProtoNix) 40 MG EC tablet, Take 40 mg by mouth every morning (before breakfast)., Disp: , Rfl: Social History Social History Socioeconomic History Marital status: Spouse name: Not on file Number of children: Not on file Years of education: Not on file Highest education level: Not on file Occupational History Not on file Tobacco Use Smoking status: Never Smokeless tobacco: Never Substance and Sexual Activity Alcohol use: No Alcohol/week: 0.0 standard drinks of alcohol Drug use: No Sexual activity: Not on file Other Topics Concern Not on file Social History Narrative to Joey , NS or ETOH. Has 2 sons, Moses and Arnaud and one dtr Suyapa , 11 GC. 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 Social Determinants of Health Financial Resource Strain: Not on file Food Insecurity: Not on file Transportation Needs: Not on file Physical Activity: Not on file Stress: Not on file Social Connections: Not on file Intimate Partner Violence: Not on file Housing Stability: Not on file FamilyHistory Family History Problem Relation Name Age of Onset Other (36131) Mother Meningitis, age 41 Dementia Father Gary age 77 Colon cancer Father Gary 75 Stroke Father Gary No Known Problems Sister Maureen No Known Problems Sister Venus Atrial fibrillation Brother [place] Dementia Brother Miki 72 No Known Problems Brother Chintan High Blood Pressure Son No Known Problems Maternal Grandmother No Known Problems Maternal Grandfather No Known Problems Paternal Grandmother No Known Problems Paternal Grandfather Review of Systems Review of Systems Respiratory: Positive for apnea. Loud snoring Psychiatric/Behavioral: Positive for sleep disturbance. Physical Exam Telephone visit LABS and Studies: Available studies were personally reviewed. Salient findings summarized in HPI & A/P Imaging: CXR portable:No results found for this or any previous visit. CXR (2V): Results for orders placed during the hospital encounter of 04/03/23 XR chest 2 views Narrative [facility] 1950 [id number] Exam Date/Time: 04/03/2023 12:04 Procedure: XR CHEST 2 VIEWS Ordering Provider: BUTLER JAMES Reason For Exam: cough and congestion CHEST, PA & LATERAL: INDICATION: Cough and congestion COMPARISON: No previous studies are available for comparison. PA and lateral views of the chest were obtained. The heart is normal in size. The mediastinal silhouette is normal. The lungs are clear. There are no effusions or infiltrates. There is no pleural thickening. The osseous structures are unremarkable. Impression Negative chest. Report Dictated on Electronically Signed By: Bud Ceron DO Electronically Signed Date/Time: 04/03/2023 2:[address] Chest: No results found for this or any previous visit. CTA Chest: No results found for this or any previous visit. Other Studies: Reviewed and as per electronic record. CxR/CT images personally reviewed by me when available; salient findings summarized in A/P. documented in this encounter [facility] 08-29-2023 History of Presen t illness Narrative [facility] [place] [facility] [place] NEW PATIENT VISIT-PULMONARY 08/29/2023 REFERRING PHYSICIAN: Femi Ortiz DO [address] [place] [address] CHIEF COMPLAINT/REASON FOR REFERRAL: Chief Complaint Patient presents with New Patient Snoring Denies gasping for breath at nighttime. He denies having a sleep study. History of Present Illness: Brando Abrams is a 73 y.o. male with medical history notable for hypertension, GERD, esophageal stricture status post dilation about 6 years ago. He was referred for evaluation of possible sleep disordered breathing. The patient reports that his has told him that he snores heavily. Over the last couple years she has noticed that he has been having more and more pauses in breathing at night. She often has to shake him to get him breath again. Patient himself denies noticing any issues with his sleep. He does not however snore/snort/gasp awake. His current bedtime is around 10 PM and he wakes between 7 AM on most days. Occasionally he will get up as early as 5 for work. 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 Denies nocturnal awakenings or nocturia. No morning headaches. Does have a dry mouth in the morning. Denies sleepy or drowsy driving. Does nap during the day a few days a week. History is otherwise negative for RLS, limb movements in sleep, dream enactment, parasomnias. [place] Sleepiness Scale Sitting and reading: Moderate chance of dozing Watching TV: Moderate chance of dozing Sitting, inactive in a public place (e.g. a theatre or a meeting): Slight chance of dozing As a passenger in a car for an hour without a break: Slight chance of dozing Lying down to rest in the afternoon when circumstances permit: Slight chance of dozing Sitting and talking to someone: Would never doze Sitting quietly after a lunch without alcohol: Slight chance of dozing In a car, while stopped for a few minutes in traffic: Would never doze Total score: 8 Assessment and Plan: 1. MERNA (obstructive sleep apnea) Discussed with the patient the possible diagnosis, causes, pathophysiology, and conditions associated with obstructive sleep apnea (MERNA). Reviewed consequences of untreated moderate to severe MERNA including causing/impacting HTN, CVA, NC, arrhythmias, elevated blood sugar levels/DM, hunger/satiety, and depression (among other conditions). Discussed treatment modalities for MERNA including PAP therapy Strongly counseled patient about dangers of driving when drowsy. Discussed available testing modalities. Proceed with home sleep apnea test. Parveen Stanley MD Pulmonary, Critical Care, and Sleep Medicine Portions of the information within this encounter were entered using an electronic dictation system. Best attempts were made to edit/proofread the information prior to note completion. Despite the review of information, some errors may remain. If there are questions related to the information contained within the note please contact the signing physician directly. PastMedical History Past Medical History: Diagnosis Date Bilateral primary osteoarthritis of knee s/p bilat knee repl per Dr. Minaya ED (erectile dysfunction) Family history of colon cancer in father 12/28/2022 H/O colonoscopy 01/2020 Dr. Alexander- neg- due 2026 Hypercholesterolemia Hypertension Prostate cancer screening 12/2022 Renal cyst 2019 per [facility] Renal insufficiency 2019 mild elev creat- [facility] renals w/ mild changes Rotator cuff tendonitis, left 2022 Dr. Remigio murphy - no sign changes on MRI Past Surgical History Past Surgical History: Procedure Laterality Date COLONOSCOPY 03/2020 - neg- due 2026 COLONOSCOPY W/ POLYPECTOMY 2016 Dr. Alexander EGD (HISTORICAL) Dr. Alexander for dysphagia , ? date TOTAL KNEE ARTHROPLASTY Right 05/2021 [facility] TOTAL KNEE ARTHROPLASTY Left 07/2021 UMBILICAL HERNIA REPAIR Allergies No Known Allergies Medications Current Outpatient Medications: pantoprazole (ProtoNix) 40 MG EC tablet, Take 40 mg by mouth every morning (before breakfast)., Disp: , Rfl: amLODIPine (Norvasc) 10 MG tablet, Take 1 tablet (10 mg) by mouth daily., Disp: 90 tablet, Rfl: 1 metoprolol succinate XL (Toprol-XL) 50 MG 24 hr tablet, Take 1 tablet (50 mg) by mouth every morning., Disp: 90 tablet, Rfl: 1 Social History Social History Socioeconomic History Marital status: Spouse name: Not on file Number of children: Not on file Years of education: Not on file Highest education level: Not on file Occupational History Not on file Tobacco Use Smoking status: Never Smokeless tobacco: Never Substance and Sexual Activity Alcohol use: No Alcohol/week: 0.0 standard drinks of alcohol Drug use: No Sexual activity: Not on file Other Topics Concern Not on file Social History Narrative to Joey , NS or ETOH. Has 2 sons, Moses and Arnaud and one dtr Suyapa , 11 GC. 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 Social Determinants of Health Financial Resource Strain: Not on file Food Insecurity: Not on file Transportation Needs: Not on file Physical Activity: Not on file Stress: Not on file Social Connections: Not on file Intimate Partner Violence: Not on file Housing Stability: Not on file FamilyHistory Family History Problem Relation Name Age of Onset Other (81187) Mother Meningitis, age 41 Dementia Father Gary age 77 Colon cancer Father Gary 75 Stroke Father Gary No Known Problems Sister Maureen No Known Problems Sister Venus Atrial fibrillation Brother [place] Dementia Brother Miki 72 No Known Problems Brother Chintan High Blood Pressure Son No Known Problems Maternal Grandmother No Known Problems Maternal Grandfather No Known Problems Paternal Grandmother No Known Problems Paternal Grandfather Review of Systems Review of Systems Constitutional: Negative for appetite change, chills, fever and unexpected weight change. HENT: Negative for congestion, nosebleeds, postnasal drip, rhinorrhea and trouble swallowing. Eyes: Negative for pain and visual disturbance. Respiratory: Negative for cough, chest tightness, shortness of breath, wheezing and stridor. Cardiovascular: Negative for chest pain, palpitations and leg swelling. Gastrointestinal: Negative for abdominal pain, diarrhea, nausea and vomiting. Endocrine: Negative for polydipsia, polyphagia and polyuria. Genitourinary: Negative for difficulty urinating, dysuria and hematuria. Musculoskeletal: Negative for arthralgias, joint swelling and myalgias. Skin: Negative for color change, pallor, rash and wound. Neurological: Negative for syncope, weakness, light-headedness and headaches. Hematological: Negative for adenopathy. Does not bruise/bleed easily. Psychiatric/Behavioral: Negative for confusion, dysphoric mood and sleep disturbance. Physical Exam Vitals: 08/29/23 0850 BP: (!) 145/74 Pulse: 88 SpO2: 96% Weight: 228 lb (103 kg) Height: 6' (1.829 m) Physical Exam Constitutional: General: He is not in acute distress. Appearance: He is well-developed. He is not ill-appearing. HENT: Head: Normocephalic and atraumatic. Right Ear: External ear normal. Left Ear: External ear normal. Nose: Nose normal. Mouth/Throat: Mouth: Mucous membranes are moist. Pharynx: Oropharynx is clear. No oropharyngeal exudate. Eyes: General: No scleral icterus. Right eye: No discharge. Left eye: No discharge. Extraocular Movements: Extraocular movements intact. Conjunctiva/sclera: Conjunctivae normal. Pupils: Pupils are equal, round, and reactive to light. Neck: Thyroid: No thyromegaly. Vascular: No JVD. Cardiovascular: Rate and Rhythm: Normal rate and regular rhythm. Pulses: Normal pulses. Heart sounds: Normal heart sounds. No murmur heard. Pulmonary: Effort: Pulmonary effort is normal. No respiratory distress. Breath sounds: Normal breath sounds. No stridor. No wheezing or rhonchi. Abdominal: General: There is no distension. Palpations: Abdomen is soft. There is no mass. Tenderness: There is no abdominal tenderness. There is no guarding. Musculoskeletal: General: No swelling or deformity. Normal range of motion. Cervical back: Normal range of motion and neck supple. Right lower leg: No edema. Left lower leg: No edema. Lymphadenopathy: Cervical: No cervical adenopathy. Skin: General: Skin is warm and dry. Coloration: Skin is not jaundiced. Findings: No rash. Neurological: General: No focal deficit present. Mental Status: He is alert and oriented to person, place, and time. Mental status is at baseline. Motor: No weakness. Gait: Gait normal. Psychiatric: Mood and Affect: Mood normal. Behavior: Behavior normal. Thought Content: Thought content normal. Judgment: Judgment normal. LABS and Studies: Available studies were personally reviewed. Salient findings summarized in HPI & A/P Imaging: CXR portable:No results found for this or any previous visit. CXR (2V): Results for orders placed during the hospital encounter of 04/03/23 XR chest 2 views Narrative Patient Name: BRANDO ABRAMS : 1950 [facility]#: [id number] Exam Date/Time: 04/03/2023 12:04 Procedure: XR CHEST 2 VIEWS Ordering Provider: BUTLER JAMES Reason For Exam: cough and congestion CHEST, PA & LATERAL: INDICATION: Cough and congestion COMPARISON: No previous studies are available for comparison. PA and lateral views of the chest were obtained. The heart is normal in size. The mediastinal silhouette is normal. The lungs are clear. There are no effusions or infiltrates. There is no pleural thickening. The osseous structures are unremarkable. Impression Negative chest. Report Dictated on Electronically Signed By: Bud Ceron DO Electronically Signed Date/Time: 04/03/2023 2:[address] Chest: No results found for this or any previous visit. CTA Chest: No results found for this or any previous visit. Other Studies: Reviewed and as per electronic record. CxR/CT images personally reviewed by me when available; salient findings summarized in A/P. PFT's: Pulmonary Functions Testing Results: No results found for: FEV1, FVC, [id number], TLC, DLCO documented in this encounter [facility] 07-05-2023 Telephone encounter Note Referral pended for doctor's signature [facility] 07-05-2023 Miscellaneous Notes Referral pended for doctor's signature documented in this encounter [facility] 07-05-2023 History of Presen t illness Narrative Images from the original note were not included. [facility] [address] [facility] [id number] Visit type: Established Patient Reason for Visit: Follow-up (6 month med check) Assessment / Plan: Brando was seen today for follow-up. Diagnoses and all orders for this visit: Primary hypertension (Primary) Comments: Stable, continue metoprolol and amlodipine Orders: - CBC auto differential; Future - Comprehensive metabolic panel; Future - CBC auto differential - Comprehensive metabolic panel Snoring Comments: Recurrent, sleep study Orders: - External referral to Sleep Medicine; Future Witnessed apneic spells Hypercholesterolemia Comments: Noted, add [id number] Brewers yeast and low-fat meals Orders: - Lipid panel; Future - Lipid panel Bilateral carpal tunnel syndrome Comments: Improving, call for bilateral EMG nerve conduction study if worsening Left shoulder tendonitis Comments: Improving, OTC NSAIDs or Tylenol as needed Dysphagia, unspecified type Comments: Recurrent, follow-up for EGD with Dr. Alexander Other orders - amLODIPine (Norvasc) 10 MG tablet; Take 1 tablet (10 mg) by mouth daily. - metoprolol succinate XL (Toprol-XL) 50 MG 24 hr tablet; Take 1 tablet (50 mg) by mouth every morning. Subjective: Patient ID: Brando Abrams is a 72 y.o. male. HPI hypertension non-smoker history of hyperlipidemia presents for checkup. Feels good on meds. Having a few issues. Saw orthopedist Dr. Flood for left shoulder tendinitis. Conservative treatment. Those symptoms have resolved. Having bilateral forearm and hand tingling when he places his hands underneath his face when he sleeps. Quickly abates in the morning. No neck or radicular symptoms. No sense of weakness. Review of Systems says he is snoring a lot and quits breathing when he sleeps. No daytime fatigue or trouble staying awake watching a movie or driving. History of hyperlipidemia but defers treatment. Does have some family history of dementia and recently a brother with A-fib. History of remote EGD for swallowing issues. Would like referral to GI for reevaluation. Not sure of the date of that. He does not smoke or drink alcohol. Rare use of alcohol. No NSAID use. No melena or blood. Bowels are regular. Due for colonoscopy in a few years No Known Allergies Current Outpatient Medications on File Prior to Visit Medication Sig Dispense Refill [DISCONTINUED] amLODIPine (Norvasc) 10 MG tablet Take 1 tablet (10 mg) by mouth daily. 90 tablet 1 [DISCONTINUED] metoprolol succinate XL (Toprol-XL) 50 MG 24 hr tablet Take 1 tablet (50 mg) by mouth every morning. 90 tablet 1 [DISCONTINUED] predniSONE (Deltasone) 10 MG tablet 5 qday for 3 days, then 3 qday for 3 days, then one qday till gone (Patient not taking: Reported on 07/05/2023) 27 tablet 0 No current facility-administered medications on file prior to visit. Patient Active Problem List Diagnosis Hypertension Erectile dysfunction BPH with urinary obstruction Bilateral primary osteoarthritis of knee Hypercholesterolemia Family history of colon cancer in father Renal insufficiency Prostate cancer screening Renal cyst Social History Tobacco Use Smoking status: Never Smokeless tobacco: Never Substance Use Topics Alcohol use: No Alcohol/week: 0.0 standard drinks of alcohol Past Surgical History: Procedure Laterality Date COLONOSCOPY 03/2020 - neg- due 2026 COLONOSCOPY W/ POLYPECTOMY 2016 Dr. Alexander EGD (HISTORICAL) Dr. Alexander for dysphagia , ? date TOTAL KNEE ARTHROPLASTY Right 05/2021 [place] TOTAL KNEE ARTHROPLASTY Left 07/2021 UMBILICAL HERNIA REPAIR Family History Problem Relation Name Age of Onset Other (76339) Mother Meningitis, age 41 Dementia Father Gary age 77 Colon cancer Father Gary 75 Stroke Father Gary No Known Problems Sister Maureen No Known Problems Sister Venus Atrial fibrillation Brother Van Dementia Brother Miki 72 No Known Problems Brother Chintan High Blood Pressure Son No Known Problems Maternal Grandmother No Known Problems Maternal Grandfather No Known Problems Paternal Grandmother No Known Problems Paternal Grandfather Objective: BP 123/68 Pulse 77 Temp 36.8 C (98.2 F) (Temporal) Ht 6' (1.829 m) Wt 222 lb (101 kg) SpO2 99% BMI 30.11 kg/m Physical Exam pleasant alert and cooperative. Negative Spurling's. Shoulder exam is unremarkable. There is no motor loss of the upper extremity except for right pincer grasp and right finger abduction. Negative Tinel's and Phalen's however. Reflexes are preserved. No atrophy or fasciculations. Some OA changes of the wrist and fingers are noted. Normal oropharynx. No nasal masses. No neck lesions adenopathy or carotid bruits. Heart is regular gallops or murmurs. Lungs are clear. Abdomen soft without pain hepatosplenomegaly masses bruits or ascites. Femoral pulses are good. There is no lower extremity findings. Posterior tibial pulses well. No appreciable leg edema documented in this encounter [facility] 04-11-2023 Miscellaneous Notes Orders pended for doctor signature documented in this encounter [facility] 04-11-2023 Telephone encounter Note Orders pended for doctor signature [facility] 04-11-2023 History of Presen t illness Narrative Images from the original note were not included. [facility] [address] [place] [address] [address] [facility] [id number] Visit type: Established Patient Reason for Visit: Shoulder Pain (Left shoulder still painful) Assessment / Plan: Brando was seen today for shoulder pain. Diagnoses and all orders for this visit: Internal derangement of shoulder, left (Primary) Rotator cuff insufficiency, left Traumatic partial tear of left biceps tendon, subsequent encounter Other orders - predniSONE (Deltasone) 10 MG tablet; 5 qday for 3 days, then 3 qday for 3 days, then one qday till gone Progressive pain with weakness. Needs MRI and Ortho referral Subjective: Patient ID: Brando Abrams is a 72 y.o. male. HPI well-controlled hypertensive non-smoker presents for continued 3 weeks of anterior shoulder pain that goes to the left upper arm. It is not associated with exertional activities. He has been able to walk [place] his [place] without dyspnea chest pain jaw pain or arm pain. Some neck stiffness but no radicular pain to the arm or fingers. Pain worsens when he lays down at night and lifting his arm away from his body. Review of Systems no sense of weakness of his hands or fingers. No increase with Valsalva maneuvers. Partial relief with ibuprofen in the last few days. Recent shoulder and chest films negative. EKG normal. Of note he denies exertional dyspnea jaw pain or arm pain. 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 No Known Allergies Current Outpatient Medications on File Prior to Visit Medication Sig Dispense Refill amLODIPine (Norvasc) 10 MG tablet Take 1 tablet (10 mg) by mouth daily. 90 tablet 1 metoprolol succinate XL (Toprol-XL) 50 MG 24 hr tablet Take 1 tablet (50 mg) by mouth every morning. 90 tablet 1 No current facility-administered medications on file prior to visit. Patient Active Problem List Diagnosis Hypertension Erectile dysfunction BPH with urinary obstruction Bilateral primary osteoarthritis of knee Hypercholesterolemia Family history of colon cancer in father Renal insufficiency Prostate cancer screening Renal cyst Social History Tobacco Use Smoking status: Never Smokeless tobacco: Never Substance Use Topics Alcohol use: No Alcohol/week: 0.0 standard drinks of alcohol Past Surgical History: Procedure Laterality Date COLONOSCOPY 03/2020 - neg- due 2026 COLONOSCOPY W/ POLYPECTOMY 2016 Diverticuli and a small polyp TOTAL KNEE ARTHROPLASTY Right 05/2021 [place] TOTAL KNEE ARTHROPLASTY Left 07/2021 UMBILICAL HERNIA REPAIR Family History Problem Relation Name Age of Onset Other (55416) Mother Meningitis, age 41 Dementia Father Gary age 77 Colon cancer Father Gary 75 Hx of colon resection, No Known Problems Sister No Known Problems Sister No Known Problems Sister No Known Problems Brother No Known Problems Brother No Known Problems Brother High Blood Pressure Son No Known Problems Maternal Grandmother No Known Problems Maternal Grandfather No Known Problems Paternal Grandmother No Known Problems Paternal Grandfather Objective: BP 138/60 Pulse 64 Temp 36.3 C (97.3 F) (Temporal) Ht 6' (1.829 m) Wt 218 lb (98.9 kg) SpO2 93% BMI 29.57 kg/m Physical Exam Diminished range of motion of C-spine but negative Spurling's. There is no distant motor and sensory Loss of his hands and fingers. Reflexes are symmetrical. He has a partial biceps tear that looks old on that left side. Positive impingement. Positive drop arm and empty can sign. Painful labral testing. No fasciculations. Pulse color and temperature of the hand and fingers is normal. Heart is regular without murmurs. Lungs are clear. documented in this encounter [facility] 04-09-2023 Telephone encounter Note Please assist before patient seen. [facility] 04-09-2023 Miscellaneous Notes Please assist before patient seen. S Patient calling with ongoing shoulder pain B Ongoing seen 04/03 A seen last week, had xray. No acute findings. Pain continues, slightly worse. Rates pain 8/10 when it comes on. Taking advil and applying heat. Would like to know if he needs referral or what the next steps are R Patient scheduled Sunday morning for follow up with pcp. Would like care advice in the meantime. I did give additional home measures such as adding tylenol with the motrin for added pain relief. Please review and follow up with patient thank you. Reason for Disposition MODERATE pain (e.g., interferes with normal activities) and present > 3 days Protocols used: Shoulder [id number] documented in this encounter [facility] 04-09-2023 Telephone encounter Note S Patient calling with ongoing shoulder pain B Ongoing seen 04/03 A seen last week, had xray. No acute findings. Pain continues, slightly worse. Rates pain 8/10 when it comes on. Taking advil and applying heat. Would like to know if he needs referral or what the next steps are R Patient scheduled Sunday morning for follow up with pcp. Would like care advice in the meantime. I did give additional home measures such as adding tylenol with the motrin for added pain relief. Please review and follow up with patient thank you. Reason for Disposition MODERATE pain (e.g., interferes with normal activities) and present > 3 days Protocols used: Shoulder [id number] [facility] 04-03-2023 History of Presen t illness Narrative Images from the original note were not included. [facility] [address] [place] [address] [address] [facility] [address] Dept: [phone] Dept Loc: [phone] Visit type: Established Patient Reason for Visit: Shoulder Pain Assessment and Plan 1. Chest pain, unspecified type Comments: Acute pain intermittent with radiation to the left shoulder of unclear etiology. Orders: - ECG 12 lead - XR chest 2 views - XR shoulder 2+ views left - Exercise stress test 2. Acute cough Comments: Acute cough suspect secondary to allergens and seasonal encouraged [id number] decongestant such as Flonase Claritin and Robitussin. Orders: - XR chest 2 views -Patient reported nondisplaced left shoulder pain and left-sided chest pain with a sensation that he feels like his heart is pumping as efficiently as it could or should he states it is a very unusual feeling and usually seems to be worse at night when he is laying down. He was not sure if it is directly associated with a cough or fact that he was having some shoulder pain from overdoing some work a couple weeks ago nonetheless he mentioned it is concerned that he might be having heart issues last EKG was done was a year and a half ago at that time was unremarkable other than multifocal PVCs. 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 Pain seems to be more on the frontal aspect of the left shoulder difficult to reproduce the pain he has had rotator cuff problems in the past and states it does not feel like a rotator cuff issue. Although he does report using his foam muscle medication it does seem to help muscle aches and pains. - Patient is concerned about his cholesterol levels and they have been elevated he was instructed previously to start on Crestor medication but he is uncertain as to whether he wants to be on the medication. We discussed the risk benefits with this he did do his ASCVD risk factor and discussed this with him as his percentage is 23.4% based on his current profile. He states at this time he is lost 10 pounds he is watching his weight and watching his sugar in his diet and ultimately would like to continue holding off treatment until the next time he has his levels checked to see if his blood pressure is better as well as his weight. - Because of the concerns of having heart issues its been years since he had a stress test although his EKG shows normal sinus rhythm without signs of acute injury ectopy there is no signs of change from his previous EKG stress test will be ordered for the patient. However he was encouraged should symptoms change or worsen should he start with any new or unusual symptoms he should seek evaluation in the emergency room. Time spent with patient discussing cardiac and cholesterol and musculskeletal factors. 40 minutes. Follow up if symptoms worsen or fail to improve, for Next scheduled follow-up. Subjective HPI this is a 72-year-old male with an underlying history of hypertension, BPH and ED who contacted the [facility] 5 days ago for concerns that he has been having issues with his shoulder. Patient called at that time reporting that his symptoms started 2 days prior approximately week ago with left shoulder pain he endorse that the pain seems to be intermittent is dull in nature primarily shoulder and upper arm. There is been no previous history of injury or trauma. 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 But lasted very short time and symptoms were gone. But feels if he rubs this muscle foam on his shoulders that helps the symptoms. Did report some aggressive shoveling work a few weeks ago, and thought maybe did something to his shoulders. Watching sugars and diet and has lost weight, concerned about elevated cholesterol. Review of Systems Constitutional: Negative for chills and fever. HENT: Negative for congestion and sore throat. Respiratory: Positive for cough and chest tightness. Negative for shortness of breath. Cardiovascular: Negative for chest pain. Gastrointestinal: Negative for abdominal pain, diarrhea, nausea and vomiting. Genitourinary: Negative for difficulty urinating. Musculoskeletal: Positive for arthralgias (Pain in the left shoulder that radiates into the left chest). Negative for back pain and neck pain. Neurological: Negative for dizziness and light-headedness. All other systems reviewed and are negative. No Known Allergies Outpatient Medications Prior to Visit Medication Sig Dispense Refill amLODIPine (Norvasc) 10 MG tablet Take 1 tablet (10 mg) by mouth daily. 90 tablet 1 metoprolol succinate XL (Toprol-XL) 50 MG 24 hr tablet Take 1 tablet (50 mg) by mouth every morning. 90 tablet 1 No facility-administered medications prior to visit. Past Medical History: Diagnosis Date Bilateral primary osteoarthritis of knee s/p bilat knee repl per Dr. Minaya ED (erectile dysfunction) Family history of colon cancer in father 12/28/2022 H/O colonoscopy 01/2020 Dr. Alexander- neg- due 2026 Hypercholesterolemia Hypertension Prostate cancer screening 12/2022 Renal cyst 2019 per [facility] Renal insufficiency 2019 mild elev creat- [facility] renals w/ mild changes Social History Tobacco Use Smoking status: Never Smokeless tobacco: Never Substance Use Topics Alcohol use: No Alcohol/week: 0.0 standard drinks of alcohol Past Surgical History: Procedure Laterality Date COLONOSCOPY 03/2020 neg- due 2026 COLONOSCOPY W/ POLYPECTOMY 2017 Diverticuli and a small polyp TOTAL KNEE ARTHROPLASTY Right 05/2021 [place] TOTAL KNEE ARTHROPLASTY Left 07/2021 UMBILICAL HERNIA REPAIR Family History Problem Relation Name Age of Onset Other (04985) Mother Meningitis, age 41 Dementia Father Gary age 77 Colon cancer Father Gary 75 Hx of colon resection, No Known Problems Sister No Known Problems Sister No Known Problems Sister No Known Problems Brother No Known Problems Brother No Known Problems Brother High Blood Pressure Son No Known Problems Maternal Grandmother No Known Problems Maternal Grandfather No Known Problems Paternal Grandmother No Known Problems Paternal Grandfather Objective BP 135/76 (BP Location: Left arm, Patient Position: Sitting, BP Cuff Size: Large adult) Pulse 69 Temp 37.2 C (98.9 F) (Temporal) Ht 6' (1.829 m) Wt 215 lb (97.5 kg) SpO2 97% BMI 29.16 kg/m Physical Exam Vitals reviewed. Constitutional: General: He is not in acute distress. Appearance: Normal appearance. He is not toxic-appearing. HENT: Right Ear: Tympanic membrane and ear canal normal. Left Ear: Tympanic membrane and ear canal normal. Eyes: General: No scleral icterus. Conjunctiva/sclera: Conjunctivae normal. Pupils: Pupils are equal, round, and reactive to light. Neck: Vascular: No carotid bruit. Cardiovascular: Rate and Rhythm: Normal rate and regular rhythm. Heart sounds: Normal heart sounds. No murmur heard. Pulmonary: Effort: Pulmonary effort is normal. No respiratory distress. Breath sounds: Normal breath sounds. No wheezing or rales. Abdominal: General: Bowel sounds are normal. There is no distension. Palpations: Abdomen is soft. Tenderness: There is no abdominal tenderness. Musculoskeletal: Cervical back: Normal range of motion and neck supple. No rigidity. Right lower leg: No edema. Left lower leg: No edema. Comments: There is some mild left shoulder pain with range of motion, however there is no weakness with range of motion testing. He does have some tenderness reproducible over the proximal bicep heads but there is no signs of muscle deformity or weakness. There is some mild deformity within the supraspinatus on the left when compared to the right it is equal though there is no redness or swelling or other acute abnormalities. Lymphadenopathy: Cervical: No cervical adenopathy. Skin: General: Skin is warm and dry. Neurological: Mental Status: He is alert. Psychiatric: Mood and Affect: Mood normal. Data Reviewed and Summarized Labs: EKG was done which shows a normal sinus rhythm rate of 68 normal axis normal intervals TN interval is 162 QRS duration is 90 QT segment is 397 normal R wave progression no signs of ST elevation or depression compared to EKG 08/2019 no signs of significant change there is no signs of current PVCs. Imaging/Testing: Cody Butler PA-C 04/03/2023 Please note that portions of this note may have been completed with voice recognition software. Documentation reviewed prior to signing but minor errors in hotel desk clerk may have occurred. documented in this encounter [facility] 03-29-2023 Telephone encounter Note Triage message reviewed with clinical staff. Patient appointment confirmed. PCP will assess at appointment visit. [facility] 03-29-2023 Miscellaneous Notes Triage message reviewed with clinical staff. Patient appointment confirmed. PCP will assess at appointment visit. S: Patient's spouse spoke with [facility] nurse regarding left shoulder pain B: Onset of symptoms/concern 2 days A: Spouse state that patient is having left shoulder moderate pain that is intermittent. Pain dull is in shoulder and upper arm, and random Spouse denies injury, neck pain, swelling, rash, fever, numbness, weakness, shortness of breath or pain radiating to jaw or chest. 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 Advised spouse patient can't take Tylenol/Motrin for discomfort, hot/cold compresses, and avoid sharp movements. Patient understands care advice. No further needs at this time. Patient instructed to call back with new or worsening symptoms. Reason for Disposition MODERATE pain (e.g., interferes with normal activities) and present > 3 days Protocols used: Shoulder [id number] documented in this encounter [facility] 03-29-2023 Telephone encounter Note S: Patient's spouse spoke with [facility] nurse regarding left shoulder pain B: Onset of symptoms/concern 2 days A: Spouse state that patient is having left shoulder moderate pain that is intermittent. Pain dull is in shoulder and upper arm, and random Spouse denies injury, neck pain, swelling, rash, fever, numbness, weakness, shortness of breath or pain radiating to jaw or chest. 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 Advised spouse patient can't take Tylenol/Motrin for discomfort, hot/cold compresses, and avoid sharp movements. Patient understands care advice. No further needs at this time. Patient instructed to call back with new or worsening symptoms. Reason for Disposition MODERATE pain (e.g., interferes with normal activities) and present > 3 days Protocols used: Shoulder [id number] [facility] 12-28-2022 History of Presen t illness Narrative Images from the original note were not included. [facility] [address] [facility] [id number] Visit type: Established Patient Reason for Visit: Follow-up (6 month med check) Assessment / Plan: Brando was seen today for follow-up. Diagnoses and all orders for this visit: Essential hypertension (Primary) Comments: Stable, continue amlodipine and metoprolol Orders: - CBC auto differential; Future - Comprehensive metabolic panel; Future - CBC auto differential - Comprehensive metabolic panel Prostate cancer screening - PSA Screening; Future - PSA Screening Hypercholesterolemia Comments: Recurrent, discussed potential to begin lipid management. Orders: - Lipid panel; Future - TSH; Future - Lipid panel - TSH Bilateral primary osteoarthritis of knee Family history of colon cancer in father Other orders - amLODIPine (Norvasc) 10 MG tablet; Take 1 tablet (10 mg) by mouth daily. - metoprolol succinate XL (Toprol-XL) 50 MG 24 hr tablet; Take 1 tablet (50 mg) by mouth every morning. Length of service 35 minutes reviewing record, patient interview, exam and discussion of diagnosis and treatment options Subjective: Patient ID: Brando Abrams is a 72 y.o. male. [facility] hypertension management for patient with history of bilateral knee replacements. History of renal insufficiency. Ultrasound showed some renal disease. Also history of BPH. He feels well. No NSAID use. Verified he got his knees replaced a few years ago. Denies chest pain cough PND orthopnea or edema. No claudication. Feels good overall. Past medical, past surgical, family and social history reviewed and chart updated appropriately Review of Systems weight is down 9 pounds. Does not feel ill. No recent earache sore throat or cough. No chest pain palpitation. No dyspnea. No orthopnea or edema. No heartburn or dysphagia. No abdominal pain. Bowels are regular. Due for colonoscopy in a couple years. His father did have colon cancer. Rare nocturia. No postvoid dribbling or dysuria. No Known Allergies Current Outpatient Medications on File Prior to Visit Medication Sig Dispense Refill [DISCONTINUED] amLODIPine (Norvasc) 10 MG tablet Take 1 tablet (10 mg) by mouth daily. 30 tablet 3 [DISCONTINUED] metoprolol succinate XL (Toprol-XL) 50 MG 24 hr tablet Take 1 tablet (50 mg) by mouth every morning. 90 tablet 0 No current facility-administered medications on file prior to visit. Patient Active Problem List Diagnosis Essential hypertension Erectile dysfunction BPH with urinary obstruction Bilateral primary osteoarthritis of knee Hypercholesterolemia Family history of colon cancer in father Social History Tobacco Use Smoking status: Never Smokeless tobacco: Never Substance Use Topics Alcohol use: No Alcohol/week: 0.0 standard drinks of alcohol Past Surgical History: Procedure Laterality Date COLONOSCOPY 03/2020 - neg- due 2026 COLONOSCOPY W/ POLYPECTOMY 2017 Diverticuli and a small polyp TOTAL KNEE ARTHROPLASTY Right 05/2021 [place] TOTAL KNEE ARTHROPLASTY Left 07/2021 UMBILICAL HERNIA REPAIR Family History Problem Relation Name Age of Onset Other (71619) Mother Meningitis, age 41 Dementia Father Gary age 77 Colon cancer Father Gary 75 Hx of colon resection, No Known Problems Sister No Known Problems Sister No Known Problems Sister No Known Problems Brother No Known Problems Brother No Known Problems Brother High Blood Pressure Son No Known Problems Maternal Grandmother No Known Problems Maternal Grandfather No Known Problems Paternal Grandmother No Known Problems Paternal Grandfather Objective: BP 121/73 Pulse 72 Temp 36.3 C (97.3 F) (Temporal) Ht 6' (1.829 m) Wt 215 lb (97.5 kg) SpO2 98% BMI 29.16 kg/m Physical Exam The physical exam is generally normal. Patient appears well, alert and oriented x 3, pleasant, cooperative. Vitals are as noted. No carotid bruits. Neck supple, no abnormal adenopathy, thyroid lesions or masses. Ears, nose and throat are normal without acute findings. Lungs are clear to auscultation. Heart is regular, without murmurs, gallops or ectopy. Abdomen is soft, non tender, without masses, hepatosplenomegaly, or bruits. Normal BS evident. Extremities are normal without edema. Peripheral pulses are fair. No worrisome skin lesions. Screening neurological exam is normal without focal deficits. Rectal exam revealed no masses. Prostate exam smooth without nodules. documented in this encounter [facility] 07-24-2022 Telephone encounter Note Rx loaded Last ov 06/22/2022 Next ov 12/28/2022 [facility] 07-24-2022 Miscellaneous Notes Rx loaded Last ov 06/22/2022 Next ov 12/28/2022 Please send to [facility] Medication name: metoprolol succinate (TOPROL XL) 50 MG extended release tablet Medication dosage: 50 mg (Miligrams Monthly quantity needed: 90 How many day supply requestin days Medication route: oral (PO) Medication administration time(s): daily If taking medication PRN, reason for taking medication: N/A If this is a controlled substance do you receive this or any other controlled medication from any other doctor or facility: N/A Ordering provider: Dr. Khanna Date of last office visit: 06/22/22 Date of next office visit: 12/28/22 Date of last refill: (see medication tab): 01/18/22 Updated/Validated preferred pharmacy: Yes [facility] Patient instructed to contact the pharmacy prior to picking up the medication: Yes documented in this encounter [facility] 07-24-2022 Telephone encounter Note Please send to [facility] Medication name: metoprolol succinate (TOPROL XL) 50 MG extended release tablet Medication dosage: 50 mg (Miligrams Monthly quantity needed: 90 How many day supply requestin days Medication route: oral (PO) Medication administration time(s): daily If taking medication PRN, reason for taking medication: N/A If this is a controlled substance do you receive this or any other controlled medication from any other doctor or facility: N/A Ordering provider: Dr. Khanna Date of last office visit: 06/22/22 Date of next office visit: 12/28/22 Date of last refill: (see medication tab): 01/18/22 Updated/Validated preferred pharmacy: Yes [facility] Patient instructed to contact the pharmacy prior to picking up the medication: Yes [facility] 07-10-2022 Telephone encounter Note Placed call to patient. Was able to speak to patient. Patient stated the did not check the pulse but will start. All concerns in message have been addressed. [email or web address] 07-10-2022 Miscellaneous Notes Placed call to patient. Was able to speak to patient. Patient stated the did not check the pulse but will start. All concerns in message have been addressed. Some of the blood pressure readings are acceptable. Ask patient if he is able to check his pulse as well. Name of caller: Nelia Contact phone number: [phone] Relationship to Patient: spouse/SO Provider: Dr. Khanna Practice: [facility] Chief Complaint/Reason for Call: Nelia calling an states that Dr. Khanna wanted to know the patients Blood Pressure Readings: 138/84, 144/72, 144/80, 136/71, 134/80. Please advise. Best time of day caller can be reached: any Patient advised that office/PCP has 24-48 business hours to return their call: N/A documented in this encounter [email or web address] 07-09-2022 Telephone encounter Note Some of the blood pressure readings are acceptable. Ask patient if he is able to check his pulse as well. [email or web address] 07-05-2022 Telephone encounter Note Name of caller: Nelia Contact phone number: [phone] Relationship to Patient: spouse/SO Provider: Dr. Khanna Practice: [facility] Chief Complaint/Reason for Call: Nelia calling an states that Dr. Khanna wanted to know the patients Blood Pressure Readings: 138/84, 144/72, 144/80, 136/71, 134/80. Please advise. Best time of day caller can be reached: any Patient advised that office/PCP has 24-48 business hours to return their call: N/A [facility] 06-27-2022 Telephone encounter Note I called patient because he asked for a refill of the amlodipine 10 mg. The request was twice daily. That was not suggested when patient was recently seen. When patient was recently seen the suggestion was that his will check his blood pressure and send in a few readings. He will stay on the amlodipine 10 mg and metoprolol 50 mg daily. Check blood pressure as discussed and send in the readings [facility] 06-27-2022 Miscellaneous Notes I called patient because he asked for a refill of the amlodipine 10 mg. The request was twice daily. That was not suggested when patient was recently seen. When patient was recently seen the suggestion was that his will check his blood pressure and send in a few readings. He will stay on the amlodipine 10 mg and metoprolol 50 mg daily. Check blood pressure as discussed and send in the readings Rx loaded Pt still has not received his Rx for this Medication name: amLODIPine (Norvasc) 10 MG tablet Medication dosage: 10 mg (Miligrams Monthly quantity needed: 60 How many day supply requestin days Medication route: oral (PO) Medication administration time(s): daily Caller stated Dr. Khanna was increasing this to one tablet twice a day If taking medication PRN, reason for taking medication: N/A If this is a controlled substance do you receive this or any other controlled medication from any other doctor or facility: No Ordering provider: Dr. Khanna Date of last office visit: 06.22.2022 Date of next office visit: 12.28.2022 Date of last refill: (see medication tab): 05.21.2022 Updated/Validated preferred pharmacy: Yes Patient instructed to contact the pharmacy prior to picking up the medication: Yes documented in this encounter [email or web address] 06-27-2022 Telephone encounter Note Rx loaded [email or web address] 06-27-2022 Telephone encounter Note Pt still has not received his Rx for this Medication name: amLODIPine (Norvasc) 10 MG tablet Medication dosage: 10 mg (Miligrams Monthly quantity needed: 60 How many day supply requestin days Medication route: oral (PO) Medication administration time(s): daily Caller stated Dr. Khanna was increasing this to one tablet twice a day If taking medication PRN, reason for taking medication: N/A If this is a controlled substance do you receive this or any other controlled medication from any other doctor or facility: No Ordering provider: Dr. Khanna Date of last office visit: 06.22.2022 Date of next office visit: 12.28.2022 Date of last refill: (see medication tab): 05.21.2022 Updated/Validated preferred pharmacy: Yes Patient instructed to contact the pharmacy prior to picking up the medication: Yes [email or web address] 06-22-2022 History of Presen t illness Narrative Subjective: Patient ID: Brando Abrams is a 71 y.o. male. 71-year-old male with a history of hypertension presents to the office for checkup. Overall feeling well. Review of Systems Constitutional: Negative for activity change, appetite change, fatigue, fever and unexpected weight change. Eyes: Negative for visual disturbance. Respiratory: Negative for chest tightness and shortness of breath. Cardiovascular: Negative for chest pain and palpitations. Gastrointestinal: Negative for abdominal pain, blood in stool, constipation and diarrhea. Endocrine: Negative for polydipsia and polyuria. Patient's fasting blood sugar has been elevated in the past Genitourinary: Negative for difficulty urinating and frequency. History of colon polyps. Last colonoscopy 2019. Unremarkable. Repeat colonoscopy 2026 suggested Musculoskeletal: Negative for arthralgias. Has done well after having bilateral knee replacement Skin: Negative for rash. Neurological: Negative for headaches. Psychiatric/Behavioral: Negative for dysphoric mood. The patient is not nervous/anxious. Objective: Physical Exam Neck: Thyroid: No thyromegaly. Vascular: No carotid bruit. Cardiovascular: Rate and Rhythm: Normal rate and regular rhythm. Heart sounds: No murmur heard. Pulmonary: Breath sounds: Normal breath sounds. Abdominal: Palpations: There is no mass. Tenderness: There is no abdominal tenderness. Musculoskeletal: Right lower leg: No edema. Left lower leg: No edema. Comments: Pulses present both feet Lymphadenopathy: Cervical: No cervical adenopathy. Skin: Findings: No rash. Neurological: Mental Status: He is alert. BP (!) 143/80 Pulse 76 Temp 36.5 C (97.7 F) (Temporal) Ht 6' (1.829 m) Wt 224 lb (102 kg) SpO2 97% BMI 30.38 kg/m No Known Allergies Current Outpatient Medications on File Prior to Visit Medication Sig Dispense Refill amLODIPine (Norvasc) 10 MG tablet Take 10 mg by mouth daily. metoprolol succinate XL (Toprol-XL) 50 MG 24 hr tablet Take 50 mg by mouth every morning. No current facility-administered medications on file prior to visit. Patient Active Problem List Diagnosis Essential hypertension Abscess Erectile dysfunction BPH with urinary obstruction Social History Tobacco Use Smoking status: Never Smokeless tobacco: Never Substance Use Topics Alcohol use: No Alcohol/week: 0.0 standard drinks Past Surgical History: Procedure Laterality Date COLONOSCOPY 2019 No polyps. COLONOSCOPY 08/07/2016 Diverticuli and a small polyp. Repeat 3-4 years HERNIA REPAIR Umbilical JOINT REPLACEMENT Bilateral Right knee May 2021. Left knee July 2021 Family History Problem Relation Name Age of Onset High Blood Pressure Son Other ([id number]) Father 77 dementia Other ([id number]) Mother 41 Meningitis Cancer Father 77 Hx of colon resection, Assessment / Plan: Diagnosis Plan 1. Primary hypertension Basic metabolic panel Basic metabolic panel Blood pressure elevated. May need to adjust blood pressure medication. 2. Renal insufficiency Basic metabolic panel Basic metabolic panel Check renal function Advised patient to check his blood pressure at home and send in the readings. Would also like to compare patient's blood pressure monitor with the office unit documented in this encounter [facility] Diagnosis Disorder of kidney and ureter, unspecified Renal insufficiency Unspecified disorder of kidney and ureter documented in this encounter [facility] Work Phone: Evaluation note* Diagnosis Essential hypertension- Primary Unspecified essential hypertension Prostate cancer screening Special screening for malignant neoplasm of prostate Hypercholesterolemia Pure hypercholesterolemia Bilateral primary osteoarthritis of knee Family history of colon cancer in father [facility] Diagnosis Chest pain, unspecified type- Primary Acute cough Chest pain, unspecified type Acute cough [facility] Diagnosis Chest pain, unspecified type Acute cough [facility]* Diagnosis Internal derangement of shoulder, left- Primary Rotator cuff insufficiency, left Traumatic partial tear of left biceps tendon, subsequent encounter [facility]* Diagnosis Traumatic partial tear of left biceps tendon, subsequent encounter Rotator cuff insufficiency, left Internal derangement of shoulder, left [facility]* Diagnosis Primary hypertension- Primary Unspecified essential hypertension Snoring Other dyspnea and respiratory abnormality Witnessed apneic spells Hypercholesterolemia Pure hypercholesterolemia Bilateral carpal tunnel syndrome Carpal tunnel syndrome Left shoulder tendonitis Dysphagia, unspecified type [facility]* Diagnosis Dysphagia, unspecified type [facility]* Diagnosis MERNA (obstructive sleep apnea)- Primary Obstructive sleep apnea (adult) (pediatric) Snoring Other dyspnea and respiratory abnormality [facility]* Diagnosis MERNA (obstructive sleep apnea)- Primary Obstructive sleep apnea (adult) (pediatric) [facility]* Diagnosis MERNA (obstructive sleep apnea)- Primary Obstructive sleep apnea (adult) (pediatric) [facility]* Diagnosis Hypercholesterolemia- Primary Pure hypercholesterolemia Primary hypertension Unspecified essential hypertension MENRA on CPAP Prostate cancer screening Special screening for malignant neoplasm of prostate Family history of cancer Family history of unspecified malignant neoplasm Renal insufficiency Unspecified disorder of kidney and ureter [facility]* Diagnosis MERNA (obstructive sleep apnea) Obstructive sleep apnea (adult) (pediatric) [facility]* Diagnosis Primary hypertension- Primary Unspecified essential hypertension Renal insufficiency Unspecified disorder of kidney and ureter [facility]* Diagnosis Encounter for subsequent annual wellness visit (AWV) in Medicare patient- Primary MERNA on CPAP Bilateral primary osteoarthritis of knee Primary hypertension Unspecified essential hypertension Paresthesia of hand, bilateral Gastroesophageal reflux disease without esophagitis Esophageal reflux Routine general medical examination at health care facility Routine general medical examination at a health care facility [facility]* Diagnosis Colon cancer screening- Primary Special screening for malignant neoplasms, colon Family history of colon cancer in father [facility]* Diagnosis Inguinal hernia of left side without obstruction or gangrene- Primary Primary hypertension Unspecified essential hypertension [facility]* Diagnosis Inguinal hernia of left side without obstruction or gangrene- Primary [facility] noteNo assessment information availableGrant[facility] Work Phone: Evaluation note* Diagnosis Primary hypertension- Primary Unspecified essential hypertension Hypercholesterolemia Pure hypercholesterolemia Gastroesophageal reflux disease without esophagitis Esophageal reflux Prostate cancer screening Special screening for malignant neoplasm of prostate Bilateral recurrent inguinal hernia without obstruction or gangrene Family history of prostate cancer Family history of malignant neoplasm of prostate [facility]* Diagnosis Primary hypertension- Primary Unspecified essential hypertension Renal insufficiency Unspecified disorder of kidney and ureter [facility]* Diagnosis Primary hypertension- Primary Unspecified essential hypertension Renal insufficiency Unspecified disorder of kidney and ureter [facility]* Diagnosis Primary hypertension- Primary Unspecified essential hypertension Renal insufficiency Unspecified disorder of kidney and ureter [facility]* Diagnosis Primary hypertension- Primary Unspecified essential hypertension Renal insufficiency Unspecified disorder of kidney and ureter [facility]* Diagnosis Primary hypertension- Primary Unspecified essential hypertension Renal insufficiency Unspecified disorder of kidney and ureter documented [facility] [place] [facility]* Diagnosis Primary hypertension- Primary Unspecified essential hypertension Renal insufficiency Unspecified disorder of kidney and ureter [facility] [place] Diagnosis Primary hypertension- Primary Unspecified essential hypertension Renal insufficiency Unspecified disorder of kidney and ureter documented in this encounter [facility] for referral (narrative)* Consultation (Routine) - Pending Review Specialty Diagnoses / Procedures Referred By Daniel t Referred To Contact Orthopedic Surgery Diagnoses Traumatic partial tear of left biceps tendon, subsequent encounter Rotator cuff insufficiency, left Internal derangement of shoulder, left Femi Ortiz DO [address] [place] [address] Farshad Kunz MD [address] [address] Referral ID Status Reason Start Date Expiration Date Visits Requested Visits Authorized [id number] Pending Review Specialty Services Required 04/11/2023 04/10/2024 1 1 * Imaging (Routine) - Pending Review Specialty Diagnoses / Procedures Referred By Daniel t Referred To Contact Radiology Diagnoses Traumatic partial tear of left biceps tendon, subsequent encounter Rotator cuff insufficiency, left Internal derangement of shoulder, left Procedures MR shoulder left wo IV contrast Femi Ortiz DO [address] [place] [address] Referral ID Status Reason Start Date Expiration Date V isits Requested Visits Authorized [id number] Pending Review 04/11/2023 04/10/2024 1 1 [facility] for referral (narrative)* Consultation (Routine) - Pending Review Specialty Diagnoses / Procedures Referred By Daniel t Referred To Contact Sleep Medicine Diagnoses Snoring Procedures [place] OFFICE/OUTPATIENT NEW HIGH MDM 60 MINUTES Femi Ortiz DO [address] [place] [address] Referral ID Status Reason Start Date Expiration Date Visits Requested Visits Authorized [id number] Pending Review Specialty Services Required 07/05/2023 07/04/2024 1 1 [facility] Consultation (Routine) - Pending Review Specialty Diagnoses / Procedures Referred By Contac t Referred To Contact Gastroenterology Diagnoses Dysphagia, unspecified type Procedures [place] OFFICE/OUTPATIENT NEW HIGH MDM 60 MINUTES Femi Ortiz DO [address] [place] [address] [place] [address] [place] [id number] Referral ID Status Reason Start Date Expiration Date Visits Requested Visits Authorized [id number] Pending Review Specialty Services Required 07/05/2023 07/04/2024 1 1 [facility]No reason for referral information availableHouston Medical Services Work Phone: Reason for Referral Status Reason Specialty Diagnoses / Procedures Referre d By Contact Referred To Contact Open Radiology Diagnoses Renal insufficiency Procedures US Renal Limited Celestino Khanna, DO [address] [place] [address] Specialty Diagnoses / Procedures Referred By Contac t Referred To Contact Diagnoses Chest pain, unspecified type Procedures Exercise stress test Cody Butler PA-C [address] [place] [address] Referral ID Status Reason Start Date Expiration Date V isits Requested Visits Authorized [id number] Pending Review 04/03/2023 09/30/2023 1 1 Specialty Diagnoses / Procedures Referred By Contac t Referred To Contact Sleep Medicine Diagnoses MERNA (obstructive sleep apnea) Procedures Home sleep test Parveen Stanley MD [address] [place] [address] [address] [place] [address] Referral ID Status Reason Start Date Expiration Date V isits Requested Visits Authorized [id number] Authorized 08/29/2023 08/23/2024 1 1 Advance Directives No Advanced Directives Records FoundDocuments on File Type Date Recorded 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 ACP-Advance Directive ACP-Power of 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 Summary Purpose Family History No Family History Records FoundNo Family History Records FoundNo Family History Records Found Chief Complaint and Reason for Visit Chief Complaint Admit Date INGUINAL HERNIA October 21, 2024 9:03a m Additional Source Comments (unrecognized sect ion and content) No Status Records FoundNo Status Records FoundNo Status Records Found INFORMATION SOURCE (unrecogn ized section and content) DATE CREATED AUTHOR 02/22/2021 [facility] DATE CREATED AUTHOR AUTHOR'S ORGANIZ ATION 01/17/2025 [facility] DATE CREATED AUTHOR AUTHOR'S ORGANIZ ATION 01/18/2025 [facility] Reason for Visit (unrecogniz ed section and content) Reason Comments Follow-up 6 month med check Reason Onset Date Comments Shoulder Pain 03/29/2023 Reason Comments Shoulder Pain Reason Onset Date Comments Shoulder Pain 04/09/2023 Reason Comments Shoulder Pain Left shoulder still painful Reason Onset Date Comments Orders 04/11/2023 MRI and ortho Reason Comments Follow-up 6 month med check Reason Onset Date Comments Referral 07/05/2023 Dr Alexander Reason Comments New Patient Snoring Denies gasping for b reath at nighttime. He denies having a sleep study. Specialty Diagnoses / Procedures Referred By Daniel simmons Referred To Contact Sleep Medicine Diagnoses Snoring Procedures [place] OFFICE/OUTPATIENT NEW HIGH MDM 60 MINUTES Femi Ortiz F, DO [address] [place] [address] [facility] [address] [facility] [address] [place] [address] Referral ID Status Reason Start Date Expiration Date Visits Requested Visits Authorized [id number] Pending Review Specialty Services Required 07/05/2023 07/04/2024 1 1 Reason Comments Sleep Apnea Reason Comments Follow-up 6 month Specialty Diagnoses / Procedures Referred By Contrachele simmons Referred To Contact Sleep Medicine Diagnoses MERNA (obstructive sleep apnea) Procedures Home sleep test Parveen Stanley MD [address] [place] [address] [facility] [address] [place] [address] Referral ID Status Reason Start Date Expiration Date Visits Re quested Visits Authorized [id number] Closed 08/29/2023 08/23/2024 1 1 Reason Onset Date Comments Med Refill 06/27/2022 Reason Onset Date Comments Med Refill 07/24/2022 Reason Onset Date Comments Blood Pressure Check 07/05/2022 Reason Comments Medicare Annual Wellness Visit Subsequen t Flu Vaccine Patient has declined the flu vaccine Reason Onset Date Comments Referral 05/29/2024 Dr Alexander Reason Comments Med Refill Reason Comments Hernia Concern in groin are a Immunizations Pt declined Pneumoco ccal Vaccine Reason Onset Date Comments Referral 10/13/2024 Dr Miller Reason Comments Follow-up Reason Onset Date Comments Results 01/04/2025 Reason Onset Date Comments Results 01/04/2025 Care Teams (unrecognized sec tion and content) Sorting Livestock Worker Relationship Specialty Start Date End Date Femi Ortiz Lianna DO [address] [place] [id number] PCP - General Family Medicine 10/24/22 Sorting Livestock Worker Relationship Specialty Start Date End Date Femi Ortiz Lianna DO [address] [place] [address] PCP - General Family Medicine 10/24/22 Sorting Livestock Worker Relationship Specialty Start Date End Date Femi Ortiz DO [address] [place] [phone] PCP - General Family Medicine 10/24/22 Sorting Livestock Worker Relationship Specialty Start Date End Date AngelFemi, DO [address] [place] [address] PCP - General Family Medicine 10/24/22 Sorting Livestock Worker Relationship Specialty Start Date End Date AngelFemi, [address] [place] [address] PCP - General Family Medicine 10/24/22 Sorting Livestock Worker Relationship Specialty Start Date End Date Angel Femi Dsouza, DO [address] [place] [address] PCP - General Family Medicine 10/24/22 Sorting Livestock Worker Relationship Specialty Start Date End Date Angel Femi Dsouza, [address] [place] [address] PCP - General Family Medicine 10/24/22 Sorting Livestock Worker Relationship Specialty Start Date End Date Angel Femi Dsouza, [address] [place] [address] PCP - General Family Medicine 10/24/22 Sorting Livestock Worker Relationship Specialty Start Date End Date Angel Femi Dsouza, [address] [place] [address] PCP - General Family Medicine 10/24/22 Sorting Livestock Worker Relationship Specialty Start Date End Date Angel Femi Dsouza, DO [address] [place] [address] PCP - General Family Medicine 10/24/22 Sorting Livestock Worker Relationship Specialty Start Date End Date Femi Ortiz, DO [address] [place] [address] PCP - General Family Medicine 10/24/22 Sorting Livestock Worker Relationship Specialty Start Date End Date Celestino Khanna, DO [address], [place] [id number] PCP - General 11/09/18 Sorting Livestock Worker Relationship Specialty Start Date End Date Celestino Khanna, DO [address] [place] [id number] PCP - General 11/09/18 Sorting Livestock Worker Relationship Specialty Start Date End Date Celestino Khanna, DO [address] [place] [id number] PCP - General 11/09/18 Sorting Livestock Worker Relationship Specialty Start Date End Date Femi Ortiz, DO [address] [place] [address] PCP - General Family Medicine 10/24/22 Sorting Livestock Worker Relationship Specialty Start Date End Date Femi Ortiz, DO [address] [place] [address] PCP - General Family Medicine 10/24/22 Sorting Livestock Worker Relationship Specialty Start Date End Date Femi Ortiz, DO [address] [place] [address] PCP - General Family Medicine 10/24/22 Sorting Livestock Worker Relationship Specialty Start Date End Date Femi Ortiz, DO [address] [place] [address] PCP - General Family Medicine 10/24/22 Sorting Livestock Worker Relationship Specialty Start Date End Date Femi Ortiz DO [address] [place] [address] PCP - General Family Medicine 10/24/22 Team Status: Active Member Role Status Dates Dr. Celestino Khanna DO Family Provider Active Dr. Femi Ortiz DO Primary Care Provider Active Team Status: Inactive Member Role Status Dates Dr. Femi Ortiz DO Primary Care Provider Active Start: October 21, 2024 End: October 21, 2024 Dr. Femi Ortiz DO Referring Provider Active Start: October 21, 2024 End: October 21, 2024 Dr. Farshad Fields MD Attending Provider Active Start: October 21, 2024 End: October 21, 2024 Sorting Livestock Worker Relationship Specialty Start Date End Date Femi Ortiz DO [address] [place] [phone] PCP - General Family Medicine 10/24/22 Sorting Livestock Worker Relationship Specialty Start Date End Date Femi Ortiz DO [address] [place] [phone] PCP - General Family Medicine 10/24/22 Sorting Livestock Worker Relationship Specialty Start Date End Date Femi Ortiz DO [address] [place] [phone] PCP - General Family Medicine 10/24/22 Sorting Livestock Worker Relationship Specialty Start Date End Date Femi Ortiz DO [address] [place] [phone] PCP - General Family Medicine 10/24/22 Sorting Livestock Worker Relationship Specialty Start Date End Date Femi Ortiz DO [address] [facility] [address] [place] [address] PCP - General Family Medicine 10/24/22 Goals (unrecognized section and content) Goals may be documented in a n alternate section FOR RECORDS PERTAINING TO PATIENTS WHO ARE OR HAVE BEEN ENROLLED IN A CHEMICAL DEPENDENCY/SUBSTANCEABUSE PROGRAM, SOME INFORMATION MAY BE OMITTED. This clinical summary was aggregated from multiple sources. Caution should be exercised in using it in the provision of clinical care. This summary normalizes information from multiple sources, and as a consequence, information in this document may materially change the coding, format and clinical context of patient data. In addition, data may be omitted in some cases. CLINICAL DECISIONS SHOULD BE BASED ON THE PRIMARY CLINICAL RECORDS. [facility] [employer] [facility]. provides no warranty or guarantee of the accuracy or completeness of information in this document.
--- OUTSIDE RECORDS SUMMARY | 2025-01-19 05:57 | XMS RPT_ITS | CCD ---
Author Organization [facility] Care Team Providers Care Respite Coordinator Name Role Phone Celestino Khanna DO Primary Care Provider Femi Ortiz DO Primary Care Provider [phone] Femi Ortiz DO Primary Care Provider [phone] Celestino Khanna DO Primary Care Provider Dr. Femi Ortiz DO Primary Care Provider Dr. Femi Ortiz DO Referring Provider Diamond [...] SCHWAB on: 01/15/2025 07:51 AM Modules accepted: [facility] 01-14-2025 29 Addended by: KITA YOUNG on: 01/14/2025 10:32 AM Modules accepted: [facility] 01-14-2025 36 ----- Message from Femi Ortiz [...] ago. But I also recommending consulting a joggle press operator for an opinion on how to slow [...] 8:22 AM EDT To: Femi Ortiz DO [place] 5440101-13-2025 36 Message released to patient as written. Patient's further questions if applicable: Pt called in for clarification on which medications he should try for his ringing ears. Medications given to pt. Pt states he will try these and let provider know if he gets no relief in 2 weeks. Were all questions from office addressed or relayed to the patient from encounter: Yes [address] 01-12-2025 36 Placed call to elda yates. Unable to reach them by phone to discuss lab results. Left detailed message to return call to discuss results. [facility] 36 ----- Message from Femi Ortiz DO sent at 01/12/2025 12:30 PM EDT ----- Referred to joggle press operator for elevated creatinine. For his ringing in his ears he could try taking Flonase and Claritin daily for 2 weeks in a row and see what happens. If symptoms persist ENT referral. ----- Message ----- From: Alejandra Mustafa MA Sent: 01/12/2025 8:52 AM EDT To: Femi Ortiz DO ----- Message ----- From: Izzy Rao Sent: 01/09/2025 3:38 PM EDT To: [facility] Clinical Shampoo Person ----- Message from Izzy Rao sent at 01/09/2025 3:38 PM EDT ----- [place] [address] 01-09-2025 36 Message released to patient as [...] relayed to the patient from encounter: No [facility] 36on 01-05-2025 36 Placed call to elda yates. Unable to reach them by phone to discuss lab results. Left detailed message to return call to discuss results. Please release information to patient [facility] 36 ----- Message from Alejandra Robertson sent at 01/05/2025 7:16 AM EDT ----- ----- Message ----- From: Femi Ortiz DO Sent: 01/04/2025 1:31 PM EDT To: [facility] Clinical Shampoo Person CBC normal, glucose and liver function stable. [...] ago. But I also recommending consulting a joggle press operator for an opinion on how to slow [...] 4:15 AM EDT To: Femi Ortiz DO [facility] 36 faxed [place] [address] Name of caller: Delvis perez Contact phone number: [phone] Relationship to Patient: [facility] Provider: Dr Ortiz Practice: [facility] Chief Complaint/Reason for Call: Caller stated that patient is having surgery at their hospital and they need to get EKG and most recent lab results faxed to them at [phone]. Thank you. Best time of day caller can be reached: Any Patient advised that office/PCP has 24-48 business hours to return their call: No Normal [facility] MR/PAT.ANEon 01-05-2025 MR/PAT.ANE [facility] Medical Records Department [address] [place] [address] PAT - Anesthesia 01/05/25 1631 MR#: [id number] Acct: [id number] Name: BRANDO ABRAMS Rep #: [id number] : 1950 74 From: Chintan Hightower MD PCP: Dr. 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 Hx Hospitalization No 01/05/25 13:09 Any Problems [...] take am of surgery PONV PONV - atomizer assembler: PONV - atomizer assembler Female No 01/05/25 13:09 HX of Motion Sickness No 01/05/25 13:09 HX of N/V After Surgery No 01/05/25 13:09 Non-Smoker Yes 01/05/25 13:09 Duration of Surgery greater Yes 01/05/25 13:09 than 60 minutes Number of Risk Factors 2 07/28/25 13:09 PONV Score Moderate Risk 01/05/25 13:09 Height Weight Height Weight: Anesthesia: Height Weight Height 6 ft 10/21/24 09:13 Respiratory Assessment Respiratory Assessment - atomizer assembler: Respiratory Tract Infection Hx - atomizer assembler Hx Respiratory Tract Infection No 01/05/25 13:09 STOP Sleep Apnea STOP Sleep Apnea - atomizer assembler: STOP Sleep Apnea - atomizer assembler Hx Hypertension Yes: CONTROLLED WITH MEDS 01/05/25 [...] Tobacco Use History Tobacco Use History - atomizer assembler: Tobacco Use History - atomizer assembler Tobacco Use Smoking Status Never smoker 01/05/25 13:09 Hx Tobacco Use No 01/05/25 13:09 Years Smoking Packs Smoked per Day Smoking Cessation Date was within the last 15 years Hx Smoking Cessation Date Hx Smoking Cessation Counseling Hematologic Medial History Hematologic Hx - atomizer assembler: 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 Normal [facility] ECG 12 leadon 12-31-2024 [facility] Office Visiton 12-31-2024 Follow-up visit [id number] Brando Abrams 1950 M Date Provider Department Center 12/31/2024 [id number] ORTIZ [facility] Family History Problem Relation Age of Onset [...] Grandfather Paternal Grandmother Paternal Grandfather Level of Service:52163 UT OFFICE/OUTPATIENT ESTABLISHED MOD MDM 30 MIN Reason for Visit and Comments: Follow-up [471808] Normal [facility] Progress Noteon 12-31-2024 Progress Note [facility] - [address] [facility] [address] Visit type: Established Patient Reason for [...] Problem Relation Name Age of Onset Other (38818) Mother Meningitis, age 41 Dementia Father Gary age 77 Colon cancer Father Gary 75 Stroke Father Gary Heart disease Sister Maureen No Known Problems Sister Venus Atrial fibrillation Brother Van Prostate cancer Brother [place] 74 Dementia Brother Miki 72 alive age 74 No Known Problems Brother Chintan High Blood Pressure Son Colon cancer Maternal Grandmother No Known Problems Maternal Grandfather all late in life No Known Problems Paternal Grandmother No Known Problems Paternal Grandfather [facility] 36on 12-30-2024 36 I called Nelia to le t her know that Brando is going to be seen tomorrow at 7:40 AM [facility] 36 Name of caller: Natasha simmons Contact phone number: [phone] Relationship to Patient: spouse/SO Provider: Dr. Ortiz [...] business hours to return their call: Yes [facility] 36on 11-11-2024 36 Sent fax to [facility] at H ome at [phone] [facility] 36on 11-07-2024 36 CMN uploaded to the [employer] media and place them in the Dr folder. [facility] Surgery Visit Reporton 10-21 Surgery Visit Report [facility] [address] [facility] [place] [address] OFFICE VISIT Date of Service: 10/21/24 MR#: [id number] Acct: [id number] Name: BRANDO ABRAMS Rep #: [id number] : 1950 Provider: Dr. Farshad richey MD Age/Sex: 74/M Location: [facility] Status: Signed Intake Vital Signs 10/21/24 09:13 [...] comfortable and no acute distress [facility] Head: normal to inspection Eyes General: appearance [...] (if applicable) (more content not included)... Normal [facility] Office Visiton 10-13-2024 Follow-up visit [id number] Brando Abrams 1950 [facility] Provider Department Center 10/13/2024 [id number] ORTIZ [facility] Family History Problem Relation Age of Onset [...] Grandfather Paternal Grandmother Paternal Grandfather Level of Service:81339 UT OFFICE/OUTPATIENT ESTABLISHED LOW MDM 20 MIN Reason for Visit and Comments: Hernia [160] - Concern in groin area Immunizations [58] - Pt declined Pneumococcal Vaccine Normal [facility] Progress Noteon 10-13-2024 Progress Note [facility] - [address] [facility] [address] Visit type: Established Patient Reason for [...] Abrams is a 74 y.o. male. 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 Extremities are pink without edema Normal [facility] 08-04-2024 36 PAP headgear is note d as unsigned in the patient chart and add it to the doctor's folder. Normal [facility] 2024 36 Recent Visits Date Type Provider Dept 05/29/24 Office Visit Femi Ortiz DO [facility] 01/04/24 Office Visit Femi Ortiz DO [facility] Showing recent visits within past 365 [...] recent labs completed in chart? N/A None [facility] 37on 05-29-2024 37 Personalized Preventative Plan for [...] Recommendations: A preventive eye exam by an auto radiator specialist is recommended every 1-2 years to screen for glaucoma, cataracts, macular degeneration, and other eye disorders. A preventive dental visit is recommended every 6 months. Try to get at least 150 minutes of exercise per week or 10,000 steps per day on a pedometer. You need 1200-1500mg of calcium and 4289-9363 international units of vitamin D per day. [...] riding a bicycle or a motorcycle Normal [facility] Office Visiton 05-29-2024 Follow-up visit [id number] Brando Abrams 1950 M Date Provider Department Center 05/29/2024 [id number] ARRIOLA [facility] Family History Problem Relation Age of Onset [...] Paternal Grandmother Paternal Grandfather Level of Service:G0439 UT PPPS, SUBSEQ VISIT Reason for Visit and Comments: Medicare Annual Wellness Visit Subsequent [677] Flu Vaccine [189] - Patient has declined the flu vaccine Normal [facility] Progress Noteon 05-29-2024 Progress Note [facility] - [address] [facility] [address] Dept: [phone] Dept Chief Complaint: Brando Abrams is an [...] activities kelin (more content not included)... [facility] sleep teston 09-10-2023 [employer] ECG 12 leadOrdered By: Feliz Adan on 04-03-2023 [employer] XR Chest 2 Viewson 3 Negative chest. Report Dictated on Electronically Signed By: Bud Ceron DO Electronically Signed Date/Time: 04/03/2023 2:25 PM T [facility] Patient Name: BRANDO ABRASM : 1950 Exam Date/Time: 04/03/2023 12:04 Procedure: [...] pleural thickening. The osseous structures are unremarkable. [facility] Bud Ceron DO - 04/03/2023 [facility] 1950 [id number] Exam Date/Time: 04/03/2023 12:04 Procedure: XR CHEST [...] Electronically Signed Date/Time: 04/03/2023 2:25 PM EDT [facility] Radiology Study observation (narrative) [employer] [facility] XR Chest 2 ViewsOrdered By: Bud Ceron on 04-03-[address] [facility] Work Phone: Basic metabolic 1998 panelon 06-23-2022 Anion gap [Moles/Vol] 11 mmol/L [facility] Calcium [Mass/Vol] 9.5 mg/dL 8.6 - 10. 3 mg/dL [facility] Chloride [Moles/Vol] 106 mmol/L 98 - 11 0 mmol/L [facility] CO2 [Moles/Vol] 22 mmol/L 20 - 32 mmol/L [facility] Creatinine [Mass/Vol] 1.32 mg/dL 0.70 - 1.35 mg/dL [facility] GFR/1.73 sq M.predicted among non-blacks MDRD (S/P/Bld) [Vol rate/Area] 58 mL/min/{1.73_m2} Low > OR = 60 mL/min/1.73m2 [facility] Comment on above: The eGFR is based on the CKD-EPI 2020 equation. To calculate the new eGFR from a previous Creatinine or Cystatin C result, go to https://www.kidney.org/professionals/ kdoqi/gfr%5Fcalculator Glucose [Mass/Vol] 85 mg/dL 65 - 99 mg/dL [facility] Comment on above: Fasting reference interval Interpretation and review of laboratory results Abnormal [facility] Potassium [Moles/Vol] 4.8 mmol/L 3.5 - 5.3 mmol/L [facility] Sodium [Moles/Vol] 139 mmol/L 135 - 146 mmol/L [facility] Urea nitrogen [Mass/Vol] 22 mg/dL 7 - 25 mg/dL [facility] Urea nitrogen/Creatinine [Mass ratio] NOT APPLICABLE [facility] US RETROPERITONEAL LIMITEDOr dered By: Celestino Khanna on 02-17-2021 Patient Name: BRANDO HARDY Ultrasound ACCESSION EXAM DATE/TIME PROCEDURE ORDERING PROVIDER [id number] 02/17/2021 13:37 EDT US Retroperitoneal DO KHANNA PAUL [employer] CPT code 55721 Reason For Exam (US Retroperitoneal Limited) . [...] Phone: [facility] Results From [facility] - 02/17/2021 8:39 PM EDT Patient Name: BRANDO ABRAMS Ultrasound ACCESSION EXAM DATE/TIME PROCEDURE ORDERING PROVIDER [id number] 02/17/2021 13:37 EDT US Retroperitoneal FRACADO ROE, CELESTINO [employer] CPT code 32972 Reason For Exam ([facility] Retroperitoneal [facility]) . [...] and Time: 02/17/2021 8:39 [facility] Phone[facility] Work Phone: [facility]ro[facility] Limitedon 02-17-2021 US Retroperitoneal Limited Patient Name: BRANDO ABRAMS Ultrasound ACCESSION EXAM DATE/TIME PROCEDURE ORDERING PROVIDER [id number] 02/17/2021 13:37 EDT US Retroperitoneal CLEMENCIA CELESTINO ROSS [employer] CPT code 61782 Reason For Exam (US Retroperitoneal Limited) . [...] Transcribed Date and Time: 02/17/2021 8:[address] [facility] Vital Signs Date Time Vital Sign Value Performing Clinician Facility 12-31-2024 07:39-0400 Body height 182.9 cm Femi Ortiz DO [facility] 12-31-2024 07:39-0400 Body mass index (BMI) [Ratio] 29.43 kg/m2 Femi Ortiz DO Work [facility] 12-31-2024 07:39-0400 Body temperature 98.4 [degF] Femi Ortiz DO [facility] 12-31-2024 07:39-0400 Body weight 98.43 kg Femi Ortiz DO Work Phone: [employer] 12-31-2024 07:39-0400 Diastolic blood pressure 76 mm[Hg] Femi Ortiz DO Work Phone: [facility] 12-31-2024 07:39-0400 Heart rate 73 /min Femi Ortiz DO [facility] 12-31-2024 07:39-0400 SaO2% (BldA) [Mass fraction] 97 % Femi Ortiz DO Work Phone: [facility] 12-31-2024 07:39-0400 Systolic blood pressure 129 mm[Hg] Femi Ortiz DO Work Phone: [facility] 10-21-2024 09:13-0400 Body height 182.[address] Femi Ortiz DO Work Phone: [facility] 10-21-2024 09:13-0400 Body mass index (BMI) [Ratio] 30.3 kg/m2 Dr. Femi Ortiz DO Work Phone: [facility] 10-21-2024 09:13-0400 Body temperature 97.6 [degF] Dr. Femi Ortiz DO Work Phone: [facility] 10-21-2024 09:13-0400 Body weight 101.[address] Femi Ortiz DO Work Phone: [facility] 10-21-2024 09:13-0400 Diastolic blood pressure 74 mm[Hg] Dr. Femi Ortiz DO Work Phone: [facility] 10-21-2024 09:13-0400 Heart rate 72 /min Dr. Femi Ortiz DO Work Phone: [facility] 10-21-2024 09:13-0400 Respiratory rate 18 /min Dr. Femi Ortiz DO Work Phone: [facility] 10-21-2024 09:13-0400 SaO2% (BldA) [Mass fraction] 98 % Dr. Femi Ortiz DO Work Phone: [facility] 10-21-2024 09:13-0400 Systolic blood pressure 130 mm[Hg] Dr. Femi Ortiz DO Work Phone: [facility] 10-13-2024 07:11-0400 Diastolic blood pressure 78 mm[Hg] Femi Ortiz DO Work Phone: [facility] 10-13-2024 07:11-0400 Heart rate 72 /min Femi Ortiz DO Work Phone: [facility] 10-13-2024 07:11-0400 Systolic blood pressure 126 mm[Hg] Femi Ortiz DO Work Phone: [facility] 10-13-2024 06:57-0400 Body height 182.9 cm Femi Ortiz DO Work Phone: [facility] 10-13-2024 06:57-0400 Body mass index (BMI) [Ratio] 30.79 kg/m2 Femi Ortiz DO Work Phone: [facility] 10-13-2024 06:57-0400 Body temperature 98.71 [degF] Femi Ortiz DO Work Phone: [facility] 10-13-2024 06:57-0400 Body weight 102.97 kg Femi Ortiz DO Work Phone: [facility] 10-13-2024 06:57-0400 SaO2% (BldA) [Mass fraction] 93 % Femi Ortiz DO Work Phone: [facility] 05-29-2024 10:24-0500 Body height 182.9 cm Femi Ortiz DO Work Phone: [facility] 05-29-2024 10:24-0500 Body mass index (BMI) [Ratio] 30.43 kg/m2 Femi Ortiz DO Work Phone: [facility] 05-29-2024 10:24-0500 Body temperature 97.39 [degF] Femi Ortiz DO Work Phone: [employer] [facility] 05-29-2024 10:24-0500 Body weight 101.79 kg Femi Ortiz DO Work Phone: [employer] [facility] 05-29-2024 10:24-0500 Diastolic blood pressure 77 mm[Hg] Femi Ortiz DO Work Phone: [employer] [facility] 05-29-2024 10:24-0500 Heart rate 72 /min Femi Ortiz DO Work Phone: [employer] [facility] 05-29-2024 10:24-0500 SaO2% (BldA) [Mass fraction] 95 % Femi Ortiz DO Work Phone: [facility] 05-29-2024 10:24-0500 Systolic blood pressure 137 mm[Hg] Femi Ortiz DO Work Phone: [facility] 01-04-2024 08:51-0400 Body height 182.9 cm Femi Ortiz DO Work Phone: [facility] 01-04-2024 08:51-0400 Body mass index (BMI) [Ratio] 30.16 kg/m2 Femi Ortiz DO Work Phone: [employer] [facility] 01-04-2024 08:51-0400 Body temperature 97.9 [degF] Femi Ortiz DO Work Phone: [facility] 01-04-2024 08:51-0400 Body weight 100.88 kg Femi Ortiz DO Work Phone: [facility] 01-04-2024 08:51-0400 Diastolic blood pressure 78 mm[Hg] Femi Ortiz DO Work Phone: [employer] [facility] 01-04-2024 08:51-0400 Heart rate 66 /min Femi Ortiz DO Work Phone: [facility] 01-04-2024 08:51-0400 SaO2% (BldA) [Mass fraction] 95 % Femi Ortiz DO Work Phone: [facility] 01-04-2024 08:51-0400 Systolic blood pressure 130 mm[Hg] Femi Ortiz DO Work Phone: [employer] [facility] 12-05-2023 10:25-0400 Body height 182.9 cm Parveen Stanley MD Work Phone: [employer] [facility] 12-05-2023 10:25-0400 Body mass index (BMI) [Ratio] 30.11 kg/m2 Parveen Stanley MD Work Phone: [employer] 12-05-2023 10:25-0400 Body weight 100.7 kg Parveen Stanley MD Work Phone: [facility] 12-05-2023 10:25-0400 Diastolic blood pressure 76 mm[Hg] Parveen Stanley MD Work Phone: [facility] 12-05-2023 10:25-0400 Heart rate 68 /min Parveen Stanley MD Work Phone: [facility] 12-05-2023 10:25-0400 SaO2% (BldA) [Mass fraction] 98 % Parveen Stanley MD Work Phone: [facility] 12-05-2023 10:25-0400 Systolic blood pressure 146 mm[Hg] Parveen Stanley MD Work Phone: [facility] 08-29-2023 08:50-0400 Body height 182.9 cm Parveen Stanley MD Work Phone: [facility] 08-29-2023 08:50-0400 Body mass index (BMI) [Ratio] 30.92 kg/m2 Parveen Stanley MD Work Phone: [facility] 08-29-2023 08:50-0400 Body weight 103.42 kg Parveen Stanley MD Work Phone: [facility] 08-29-2023 08:50-0400 Diastolic blood pressure 74 mm[Hg] Parveen Stanley MD Work Phone: [facility] 08-29-2023 08:50-0400 Heart rate 88 /min Parveen Stanley MD Work Phone: [facility] 08-29-2023 08:50-0400 SaO2% (BldA) [Mass fraction] 96 % Parveen Stanley MD Work Phone: [facility] 08-29-2023 08:50-0400 Systolic blood pressure 145 mm[Hg] Parveen Stanley MD Work Phone: [facility] 07-05-2023 08:52-0500 Body height 182.9 cm Femi Ortiz DO Work Phone: [employer] 07-05-2023 08:52-0500 Body mass index (BMI) [Ratio] 30.11 kg/m2 Femi Ortiz DO Work Phone: [facility] 07-05-2023 08:52-0500 Body temperature 98.2 [degF] Femi Ortiz DO Work Phone: [facility] 07-05-2023 08:52-0500 Body weight 100.7 kg Femi Ortiz DO Work Phone: [facility] 07-05-2023 08:52-0500 Diastolic blood pressure 68 mm[Hg] Femi Ortiz DO Work Phone: [facility] 07-05-2023 08:52-0500 Heart rate 77 /min Femi Ortiz DO Work Phone: [facility] 07-05-2023 08:52-0500 SaO2% (BldA) [Mass fraction] 99 % Femi Ortiz DO Work Phone: [facility] 07-05-2023 08:52-0500 Systolic blood pressure 123 mm[Hg] Femi Ortiz DO Work Phone: [facility] 04-11-2023 09:25-0400 Body height 182.9 cm Femi Ortiz DO Work Phone: [facility] 04-11-2023 09:25-0400 Body mass index (BMI) [Ratio] 29.57 kg/m2 Femi Ortiz DO Work Phone: [facility] 04-11-2023 09:25-0400 Body temperature 97.3 [degF] Femi Ortiz DO Work Phone: [employer] [facility] 04-11-2023 09:25-0400 Body weight 98.88 kg Femi Ortiz DO Work Phone: [facility] 04-11-2023 09:25-0400 Diastolic blood pressure 60 mm[Hg] Femi Ortiz DO Work Phone: [facility] 04-11-2023 09:25-0400 Heart rate 64 /min Femi Ortiz DO Work Phone: [facility] 04-11-2023 09:25-0400 SaO2% (BldA) [Mass fraction] 93 % Femi Ortiz DO Work Phone: [facility] 04-11-2023 09:25-0400 Systolic blood pressure 138 mm[Hg] Femi Ortiz DO Work Phone: [facility] 04-03-2023 10:37-0400 Body height 182.9 cm Cody Butler PA-C Work Phone: [employer] [facility] 04-03-2023 10:37-0400 Body mass index (BMI) [Ratio] 29.16 kg/m2 Cody Butler PA-C Work Phone: [facility] 04-03-2023 10:37-0400 Body temperature 98.91 [degF] Cody Butler PA-C Work Phone: [facility] 04-03-2023 10:37-0400 Body weight 97.52 kg Cody Butler PA-C Work Phone: [employer] [facility] 04-03-2023 10:37-0400 Diastolic blood pressure 76 mm[Hg] Cody Butler PA-C Work Phone: [facility] 04-03-2023 10:37-0400 Heart rate 69 /min Cody Butler PA-C Work Phone: [facility] 04-03-2023 10:37-0400 SaO2% (BldA) [Mass fraction] 97 % Cody Butler PA-C Work Phone: [employer] [facility] 04-03-2023 10:37-0400 Systolic blood pressure 135 mm[Hg] Cody Butler PA-C Work Phone: [facility] [employer] 12-28-2022 08:56-0400 Body height 182.9 cm Femi Ortiz DO Work Phone: [employer] [facility] 12-28-2022 08:56-0400 Body mass index (BMI) [Ratio] 29.16 kg/m2 Femi Ortiz DO Work Phone: [facility] 12-28-2022 08:56-0400 Body temperature 97.3 [degF] Femi Ortiz DO Work Phone: [facility] 12-28-2022 08:56-0400 Body weight 97.52 kg Femi Ortiz DO Work Phone: [facility] 12-28-2022 08:56-0400 Diastolic blood pressure 73 mm[Hg] Femi Ortiz DO Work Phone: [facility] 12-28-2022 08:56-0400 Heart rate 72 /min Femi Ortiz DO Work Phone: [facility] 12-28-2022 08:56-0400 SaO2% (BldA) [Mass fraction] 98 % Femi Ortiz DO Work Phone: [facility] 12-28-2022 08:56-0400 Systolic blood pressure 121 mm[Hg] Femi Ortiz DO Work Phone: [facility] 06-22-2022 09:45-0500 Diastolic blood pressure 80 mm[Hg] Celestino Casejordin DO Work Phone: [facility] 06-22-2022 09:45-0500 Heart rate 76 /min Celestino Casejordin DO Work Phone: [facility] 06-22-2022 09:45-0500 Systolic blood pressure 143 mm[Hg] Celestino Lewisedwino DO Work Phone: [facility] 06-22-2022 09:08-0500 Body height 182.9 cm Celestino Casejordin DO Work Phone: [facility] 06-22-2022 09:08-0500 Body mass index (BMI) [Ratio] 30.38 kg/m2 Celestino Caseo DO Work Phone: [facility] 06-22-2022 09:08-0500 Body temperature 97.7 [degF] Celestino Khanna DO Work Phone: [facility] 06-22-2022 09:08-0500 Body weight 101.61 kg Celestino Khanna DO Work Phone: [facility] 06-22-2022 09:08-0500 SaO2% (BldA) [Mass fraction] 97 % Celestino Khanna DO Work Phone: [facility] Encounters Encounter Date Encounter Type Care Provider Facility Start: 01-19-2025 ambulatory Farshad Fields Facility :[facility] Start: 01-04-2025 End: 01-04-2025 Follow-up encounter Femi Ortiz DO Work Phone: [facility] [place] Comment on above: ECG 12 lead, CBC aut o differential, Comprehensive metabolic panel, Additional followed-up results: 2 Start: 12-31-2024 End: 12-31-2024 Office outpatient visit 25 minutes Femi Ortiz DO Work Phone: [facility] [place] Comment on above: Primary hypertension (Primary Dx); Hypercholesterolemia; Gastroesophageal reflux disease without esophagitis; Prostate cancer screening; Bilateral recurrent inguinal hernia without obstruction or gangrene; Family history of prostate cancer Start: 12-31-2024 End: 12-31-2024 ambulatory [facility] Start: 11-11-2024 End: 11-11-2024 Telephone encounter Parveen Stanley MD Work Phone: [facility] [place] Start: 10-21-2024 End: 10-21-[address] Farshad Fields MD -[facility] Work Phone: Start: 10-21-2024 End: 10-21-[address] Femi Ortiz DO Work Phone: [facility] Work Phone: Start: 10-13-2024 End: 10-13-2024 Telephone encounter Femi Ortiz DO Work Phone: [facility] [place] Comment on above: Referral (Dr Omar tucker) Start: 10-13-2024 End: 10-13-2024 Office outpatient visit 15 minutes Femi Ortiz DO Work Phone: [facility] [place] Comment on above: Inguinal hernia of l eft side without obstruction or gangrene (Primary Dx); Primary hypertension Start: 10-13-2024 End: 10-13-2024 ambulatory [facility] Start: 07-21-2024 End: 2024 Refill Femi Ortiz DO Work Phone: [facility] [place] Start: 05-29-2024 End: 05-29-2024 Telephone encounter Femi Ortiz DO Work Phone: [facility] [place] Comment on above: Referral (Dr Alexander) Start: 05-29-2024 End: 05-29-2024 Assay of hemosiderin, quant Femi Ortiz DO Work Phone: [facility] Start: 05-29-2024 End: 05-29-2024 Patient encounter procedure Femi Ortiz DO Work Phone: [facility] [place] Comment on above: Encounter for subseq uent annual wellness visit (AWV) in Medicare patient (Primary Dx); MERNA on CPAP; Bilateral primary osteoarthritis of knee; Primary hypertension; Paresthesia of hand, bilateral; Gastroesophageal reflux disease without esophagitis; Routine general medical examination at health care facility Start: 05-29-2024 End: 05-29-2024 ambulatory [facility] Start: 05-29-2024 End: 05-29-2024 Encounter for general adult medical examination without abnormal findings [facility] Start: 01-04-2024 End: 01-04-2024 Office outpatient visit 25 minutes Femi Ortiz DO Work Phone: [facility] Comment on above: Hypercholesterolemia (Primary Dx); Primary hypertension; MERNA on CPAP; Prostate cancer screening; Family history of cancer; Renal insufficiency Start: 12-05-2023 End: 03-13-2024 Telephone encounter Parveen Stanley MD Work Phone: [facility] [place] Start: 12-05-2023 End: 12-05-2023 Office outpatient visit 10 minutes Parveen Stanley MD Work Phone: [facility] Comment on above: MERNA (obstructive sle ep apnea) (Primary Dx) Start: 10-16-2023 Telephone encounter Cody shell PA-C Work Phone: [facility] Scheduling Start: 10-02-2023 Office outpatient vi sit 15 minutes Parveen Stanley MD Work Phone: [facility] Comment on above: MERNA (obstructive sle ep apnea) (Primary Dx) Start: 09-05-2023 End: 09-05-2023 ambulatory Parveen Stanley MD Work Phone: [facility] Comment on above: MERNA (obstructive sle ep apnea) Start: 08-29-2023 End: 08-29-2023 Office outpatient new 30 minutes Parveen Stanley MD Work Phone: [facility] Comment on above: MERNA (obstructive sle ep apnea) (Primary Dx); Snoring Start: 07-05-2023 Telephone encounter Femi whiting DO Work Phone: [facility] Comment on above: Referral (Dr Alexander) Start: 07-05-2023 End: 07-05-2023 Office outpatient visit 25 minutes Femi Ortiz DO Work Phone: [facility] Comment on above: Primary hypertension (Primary Dx); Snoring; Witnessed apneic spells; Hypercholesterolemia; Bilateral carpal tunnel syndrome; Left shoulder tendonitis; Dysphagia, unspecified type Start: 04-11-2023 Telephone encounter Femi whiting DO Work Phone: [facility] Comment on above: Orders (MRI and orth o) Start: 04-11-2023 End: 04-11-2023 Office outpatient visit 15 minutes Femi Ortiz DO Work Phone: [facility] Comment on above: Internal derangement of shoulder, left (Primary Dx); Rotator cuff insufficiency, left; Traumatic partial tear of left biceps tendon, subsequent encounter Start: 04-09-2023 ambulatory Veronica Mott RN [facility] Cl inical Communication Start: 04-09-2023 Patient encounter procedure Veronica mendoza RN [facility] Clinical Communication Start: 04-03-2023 End: 04-03-2023 Subsequent hospital visit by physician Cody Butler PA-C Work Phone: [facility] Rad[facility] Comment on above: Chest pain, unspecif ied type; Acute cough Start: 04-03-2023 End: 04-03-2023 Office outpatient visit 25 minutes Cody Butler PA-C Work Phone: [facility] Comment on above: Chest pain, unspecif ied type (Primary Dx); Acute cough Start: 03-29-2023 ambulatory Valerie campbell RN [facility] Clinical Communication Start: 03-29-2023 Patient encounter procedure Alex Chávez RN [facility] Communication Start: 12-28-2022 End: 12-28-2022 Office outpatient visit 25 minutes Femi Ortiz DO Work Phone: [facility] Comment on above: Essential hypertensi on (Primary Dx); Prostate cancer screening; Hypercholesterolemia; Bilateral primary osteoarthritis of knee; Family history of colon cancer in father Start: 07-24-2022 Refill Celestino brenner DO Work Phone: [facility] Start: 07-05-2022 Telephone encounter Celestino torres DO Work Phone: [facility] Comment on above: Blood Pressure Check Start: 06-27-2022 Refill Celestino brenner DO Work Phone: [facility] Start: 06-22-2022 End: 06-22-2022 Office outpatient visit 15 minutes Celestino Khanna DO Work Phone: [facility] Comment on above: Primary hypertension (Primary [...] 02-02-2030 Screening for malignant neoplasm of colon [facility] Start: 12-31-2029 Lipid panel Lipid Panel [facility] Start: 07-05-2028 Lipid panel Lipid Panel [facility] Start: 12-29-2027 Lipid panel Lipid Panel [facility] Start: 2027 RSV Immunization for Adults (1 - 1-dose 75+ series) RSV Immunization for Adults (1 - 1-dose 75+ series) [facility] Start: 01-17-2027 Lipid panel Lipid Panel [facility] Start: 01-04-2026 Lipid [facility]: Start: 10-13-2025 Depression Screening Depression Screening [facility] Start: 06-28-2025 Medicare Annual Wellness (AWV) Medicare Annual Wellness (AWV) [facility] Start: 06-01-2025 End: 06-01-2025 Patient encounter procedure [facility] [place] Start: 05-28-2025 Depression Screening Depression Screening [facility] Start: 02-09-2025 Influenza vaccination [facility] Start: 01-04-2025 End: 01-04-2026 Urinalysis complete panel - Urine Complete Urinalysis Lab Routine Primary hypertension Renal insufficiency Expected: 01/04/2025 (Approximate), Expires: 01/04/[address] [facility] [employer] Work Phone: Comment on above: Expected: 01/04/2025 (Approximate), Expi res: 01/04/2026 Start: 01-03-2025 Depression Screening Depression Screening [facility] Start: 12-31-2024 End: 12-31-2025 CBC W Auto Differential panel - Blood CBC auto differential Lab Routine Primary hypertension Expected: 12/31/2024 (Approximate), Expires: 12/31/[address] [facility] [employer] Work Phone: Comment on above: Expected: 12/31/2024 (Approximate), Expi res: 12/31/2025 Start: 12-31-2024 End: 12-31-2025 Comprehensive metabolic 1998 panel - Serum or Plasma Comprehensive metabolic panel Lab Routine Primary hypertension Expected: 12/31/2024 (Approximate), Expires: 12/31/2025 [facility] Comment on above: Expected: 12/31/2024 (Approximate), Expi res: 12/31/2025 Start: 12-31-2024 End: 12-31-2025 Lipid 1996 panel - Serum or Plasma Lipid panel Lab Routine Hypercholesterolemia Expected: 12/31/2024 (Approximate), Expires: 12/31/2025 [facility] Comment on above: Expected: 12/31/2024 (Approximate), Expi res: 12/31/2025 Start: 12-31-2024 End: 12-31-2025 PSA Total (Screening) PSA Total (Screening) Lab Routine Prostate cancer screening Expected: 12/31/2024 (Approximate), Expires: 12/31/2025 [facility] Comment on above: Expected: 12/31/2024 (Approximate), Expi res: 12/31/2025 Start: 12-31-2024 End: 12-31-2024 Patient encounter procedure 12/31/2024 7:40 AM EDT Office Visit [facility] [address] [place] [address] Femi Ortiz DO [address] [place] [id number] [facility] [place] Start: 12-25-2024 End: 12-25-2024 Patient encounter procedure 12/25/2024 9:00 AM EDT Office Visit [facility] [place] [address] [place] [address] Femi Ortiz DO [address] [place] [address] [facility] [place] Start: 05-29-2024 End: 05-29-2024 Patient encounter procedure [facility] Start: 02-10-2024 COVID-19 Vaccine ( season) COVID-19 Vaccine () [facility] Start: 02-10-2024 COVID-19 Vaccine ( season) COVID-19 Vaccine () [facility] Start: 02-10-2024 Influenza vaccination [facility] Start: 01-04-2024 End: 01-03-2025 Basic metabolic 1998 panel - Serum or Plasma Basic metabolic panel Lab Routine Hypercholesterolemia Expected: 01/04/2024 (Approximate), Expires: 01/03/2025 [facility] Work Phone: Comment on above: Expected: 01/04/2024 (Approximate), Expi res: 01/03/2025 Start: 01-04-2024 End: 01-03-2025 PSA Total (Screening) PSA Total (Screening) Lab Routine Prostate cancer screening Expected: 01/04/2024 (Approximate), Expires: 01/03/2025 [facility] Comment on above: Expected: 01/04/2024 (Approximate), Expi res: 01/03/2025 Start: 01-04-2024 End: 01-04-2024 Patient encounter procedure 01/04/2024 9:00 AM EDT Office Visit [facility] [address] [place] [address] Femi Ortiz, DO [address] [place] [address] [place] [address] [facility] Start: 12-05-2023 End: 12-05-2023 Patient encounter procedure 12/05/2023 10:30 AM EDT Office Visit [facility] [address] [place] [address] Parveen Stanley MD [address] [place] [address] [address] [place] [address] [facility] Start: 08-29-2023 End: 08-28-2024 Home sleep test Home sleep test Sleep Center Routine MERNA (obstructive sleep apnea) Expected: 08/29/2023 (Approximate), Expires: 08/28/[address] [facility] [employer] Work Phone: Comment on above: Expected: 08/29/2023 (Approximate), Expi res: 08/28/2024 Start: 07-05-2023 End: 07-05-2024 CBC W Auto Differential panel - Blood CBC auto differential Lab Routine Primary hypertension Expected: 07/05/2023 (Approximate), Expires: 07/05/[address] [facility] Work Phone: Comment on above: Expected: 07/05/2023 (Approximate), Expi res: 07/05/2024 Start: 07-05-2023 End: 07-05-2024 Comprehensive metabolic 1998 panel - Serum or Plasma Comprehensive metabolic panel Lab Routine Primary hypertension Expected: 07/05/2023 (Approximate), Expires: 07/05/[address] [facility] Comment on above: Expected: 07/05/2023 (Approximate), Expi res: 07/05/2024 Start: 07-05-2023 End: 07-05-2024 Lipid 1996 panel - Serum or Plasma Lipid panel Lab Routine Hypercholesterolemia Expected: 07/05/2023 (Approximate), Expires: 07/05/[address] [facility] Comment on above: Expected: 07/05/2023 (Approximate), Expi res: 07/05/2024 Start: 07-05-2023 End: 07-05-2023 Patient encounter procedure [facility] Start: 06-22-2023 Hepatitis B Vaccines (1 of 3 - 3-dose series) Hepatitis B Vaccines (1 of 3 - 3-dose series) [facility] Comment on above: Postponed from 1952 (Patient Refus ed) Start: 06-22-2023 Pneumococcal Vaccine: 65+ Years (2 - PCV) Pneumococcal Vaccine: 65+ Years (2 - PCV) [facility] Comment on above: Postponed from 08/17/2021 (Patient Refus ed) Start: 04-11-2023 End: 04-11-2024 MR Shoulder - left WO contrast MR shoulder left wo IV contrast Imaging Routine Traumatic partial tear of left biceps tendon, subsequent encounter Rotator cuff insufficiency, left Internal derangement of shoulder, left Expected: 04/11/2023, Expires: 04/11/2024 [employer] Work Phone: Comment on above: Expected: 04/11/2023, Expires: Start: 04-11-2023 End: 04-11-2023 Patient encounter procedure 04/11/2023 9:30 AM EDT Office Visit [facility] [address] [place] [address] Femi Ortiz DO [address] [place] [address] [place] [address] [facility] Start: 04-03-2023 End: 04-03-2024 XR Shoulder - left 2 Views [employer] Work Phone: Comment on above: Expected: 04/03/2023, Expires: 4 Once for 1 Occurrenc es starting 04/03/2023 until 04/03/2023 Start: 04-03-2023 End: 04-03-2023 Patient encounter procedure 04/03/2023 10:40 AM EDT Office Visit [facility] [address] [place] [address] Cody Butler PA-C [address] [place] [address] [facility] Start: 02-09-2023 COVID-19 Vaccine ( season) COVID-19 Vaccine ( season) [facility] Start: 02-09-2023 Influenza vaccination Influenza Vaccine (#1) [facility] Start: 12-28-2022 End: 12-29-2023 CBC W Auto Differential panel - Blood CBC auto differential Lab Routine Essential hypertension Expected: 12/28/2022 (Approximate), Expires: 12/29/2023 [employer] Work Phone: Comment on above: Expected: 12/28/2022 (Approximate), Expi res: 12/29/2023 Start: 12-28-2022 End: 12-29-2023 Comprehensive metabolic 1998 panel - Serum or Plasma Comprehensive metabolic panel Lab Routine Essential hypertension Expected: 12/28/2022 (Approximate), Expires: 12/29/[address] [facility] Comment on above: Expected: 12/28/2022 (Approximate), Expi res: 12/29/2023 Start: 12-28-2022 End: 12-29-2023 Lipid 1996 panel - Serum or Plasma Lipid panel Lab Routine Hypercholesterolemia Expected: 12/28/2022 (Approximate), Expires: 12/29/2023 [facility] Comment on above: Expected: 12/28/2022 (Approximate), Expi res: 12/29/2023 Start: 12-28-2022 End: 12-29-2023 PSA screening PSA Screening Lab Routine Prostate cancer screening Expected: 12/28/2022 (Approximate), Expires: 12/29/2023 [facility] Comment on above: Expected: 12/28/2022 (Approximate), Expi res: 12/29/2023 Start: 12-28-2022 End: 12-29-2023 Thyrotropin [Units/volume] in Serum or Plasma TSH Lab Routine Hypercholesterolemia Expected: 12/28/2022 (Approximate), Expires: 12/29/[address] [facility] Comment on above: Expected: 12/28/2022 (Approximate), Expi res: 12/29/2023 Start: 12-28-2022 End: 12-28-2022 Patient encounter procedure 12/28/2022 Office Visit Family Medicine Femi Ortiz, DO [address] [place] [address] [facility] Start: 12-08-2022 Influenza vaccination Influenza Vaccine (#1) [facility] Comment on above: Postponed from 02/09/2022 (Patient Refus ed) Start: 03-02-2022 Medicare Annual Wellness (AWV) Medicare Annual Wellness (AWV) [facility] Start: 02-01-2022 Annual Wellness Visit (AWV) Annual Wellness Visit (AWV) [facility] Work Phone: Start: 01-04-2022 Creatinine measurement [facility] monitoring [facility] Work Phone: Start: 01-04-2022 Potassium monitoring Potassium monitoring [facility] Work Phone: Start: 08-17-2021 Pneumococcal Vaccine: 50+ Years (2 of 2 - PCV) Pneumococcal Vaccine: 50+ Years (2 of 2 - PCV) [facility] Start: 08-17-2021 Pneumococcal Vaccine: 65+ Years (2 of 2 - PCV) Pneumococcal Vaccine: 65+ Years (2 of 2 - PCV) [facility] Start: 07-05-2021 End: 07-05-2021 Patient encounter procedure 07/05/2021 Office Visit Family Medicine Celestino Khanna, [address] [address] [phone] [facility] Start: 06-23-2021 COVID-19 Vaccine (4 - Booster for Moderna series) COVID-19 Vaccine (4 - Booster for Moderna series) [facility] Start: 06-23-2021 COVID-19 Vaccine (4 - Moderna series) COVID-19 Vaccine (4 - Moderna series) [facility] Start: 02-09-2021 Influenza vaccination Flu vaccine (#1) [facility] Work Phone: Start: 2012 RSV Immunization aged 60 or older (1 - 1-dose 60+ series) RSV Immunization aged 60 or older (1 - 1-dose 60+ series) [facility] Start: 2002 Shingles Vaccine (1 of 2) Shingles Vaccine (1 of 2) [facility] Work Phone: Start: 2002 Zoster Vaccines (1 of 2) Zoster Vaccines (1 of 2) [facility] Start: 1992 Diabetes screen Diabetes screen [facility] Work Phone: Start: 1971 DTaP/Tdap/Td vaccine (1 - Tdap) DTaP/Tdap/Td vaccine (1 - Tdap) [facility] Work Phone: Start: 1971 DTaP/Tdap/Td Vaccines (1 - Tdap) DTaP/Tdap/Td Vaccines (1 - Tdap) [facility] Start: 1970 Diabetes mellitus screening Diabetes Screening [facility] Start: 1970 Hepatitis C screening Hepatitis C Screening [facility] Start: 1964 Depression Screening Depression Screening [facility] Start: 1952 Hepatitis C screening Hepatitis C screen [facility] Work Phone: Start: 1952 Medicare Annual Wellness (AWV) Medicare Annual Wellness (AWV) [facility] Start: 1952 Screening for malignant neoplasm of colon [facility] Immunizations Immunization Date Immunization Notes Care Provider Fa cility 06-25-2024 Shingrix 50 MCG/0.5M L vaccine Femi Angel DO Work Phone: [facility] 08-17-2020 pneumococcal polysac charide vaccine, 23 valent Celestino Khanna DO Work Phone: [facility] Payers Date Payer Category Payer Self-pay [id number] 2017 Medicare [id number] 2017 Medicare supplementa l policy (as second payer) [employer] [id number] 2017 Private Health Insurance [id number] 2017 Medicare [id number] 2017 Private Health Insurance [facility] [id number] Unknown [id number] Unknown [id number] Social History Date Type Detail Facility Start: 01-04-2021 End: 10-21-2024 Tobacco smoking status VAIS Never smoker [facility] Start: 01-04-2021 Tobacco use and exposure [...] Start: 12-24-2022 End: 01-04-2024 Tobacco use panel [facility] Start: 06-12-2022 End: 12-28-2022 Exposure to SARS-CoV-2 (event) Not sure [facility] How often do you nee d to have someone help you when you read instructions, pamphlets, or other written material from your doctor or pharmacy [SILS] Never [facility] Has the electric, [employer], oil, or water company threatened to shut off services in your home in past 12Mo No [facility] Do you belong to any clubs or organizations such as jehovah's witness groups, unions, fraternal or athletic groups, or school groups? Yes [facility] Are you now , , , , never or living with a partner? [facility] How often to you hav e a drink containing alcohol? Never [facility] Do you feel stress - tense, restless, nervous, or anxious, or unable to sleep at night because your mind is troubled all the time - these days [OSQ] Not at all [facility] (I/We) worried whenicolle er (my/our) food would run out before (I/we) got money to buy more. Never true [facility] How often to you hav e a drink containing alcohol? Monthly or less [facility] How many standard dr inks containing alcohol do you have on a typical day? 1 or 2 [facility] Start: 01-09-2022 Sex Male (finding) [facility] Start: 1950 Sex Assigned At Male W [facility] Clinical Notes 06-22-2022 to 01-15-2025 Addendum Note - Femi Ortiz DO - 01/15/2025 7:51 AM EDTAddendum Note - Femi Ortiz DO - 01/15/2025 7:51 AM EDTAddendum Note - Kita Young - 01/14/2025 10:32 AM EDTPatient Instructions Note Date & Type Note Facility 01-15-2025 Note Addended by: FEMI SCHWAB on: 01/15/2025 07:51 AM Modules accepted: Orders [facility] 01-15-2025 Miscellaneous Notes Addended by: FEMI [...] ago. But I also recommending consulting a joggle press operator for an opinion on how to slow [...] 01/12/2025 12:30 PM EDT ----- Referred to joggle press operator for elevated creatinine. For his ringing in his ears he could try taking Flonase and Claritin daily for 2 weeks in a row and see what happens. If symptoms persist ENT referral. ----- Message ----- From: Alejandra Mustafa MA Sent: 01/12/2025 8:52 AM EDT To: Femi Ortiz DO ----- Message ----- From: Izzy Rao Sent: 01/09/2025 3:38 PM EDT To: [facility] Clinical Shampoo Person ----- Message from Izzy Rao sent at [...] DO Sent: 01/04/2025 1:31 PM EDT To: [facility] Clinical Shampoo Person CBC normal, glucose and liver function stable. [...] ago. But I also recommending consulting a joggle press operator for an opinion on how to slow [...] Femi Ortiz DO documented in this encounter [facility] 01-14-2025 Note Addended by: KITA YOUNG on: 01/14/2025 10:32 AM Modules accepted: Orders [facility] 08-06-2025 Note Addended by: KITA YOUNG on: 01/14/2025 10:32 AM Modules accepted: Orders [facility] 01-14-2025 Miscellaneous Notes Addended by: KITA [...] ago. But I also recommending consulting a joggle press operator for an opinion on how to slow [...] 01/12/2025 12:30 PM EDT ----- Referred to joggle press operator for elevated creatinine. For his ringing in his ears he could try taking Flonase and Claritin daily for 2 weeks in a row and see what happens. If symptoms persist ENT referral. ----- Message ----- From: Alejandra Mustafa MA Sent: 01/12/2025 8:52 AM EDT To: Femi Ortiz DO ----- Message ----- From: Izzy Rao Sent: 01/09/2025 3:38 PM EDT To: [facility] Clinical Shampoo Person ----- Message from Izzy Rao sent at [...] DO Sent: 01/04/2025 1:31 PM EDT To: [facility] Clinical Shampoo Person CBC normal, glucose and liver function stable. [...] ago. But I also recommending consulting a joggle press operator for an opinion on how to slow [...] Femi Ortiz DO documented in this encounter [facility] 01-14-[address] Herzog pended for dx and doctor's signature [facility] 01-14-2025 Telephone encounter Note Referral to Dr Herzog pended for dx and doctor's signature [facility] 01-14-2025 Telephone encounter Note ----- Message from [...] ago. But I also recommending consulting a joggle press operator for an opinion on how to slow [...] 8:22 AM EDT To: Femi Ortiz DO [facility] 01-13-2025 Telephone encounter Note Message released to [...] relayed to the patient from encounter: Yes [employer] [facility] 01-13-2025 Miscellaneous Notes Message released to patient [...] 01/12/2025 12:30 PM EDT ----- Referred to joggle press operator for elevated creatinine. For his ringing in his ears he could try taking Flonase and Claritin daily for 2 weeks in a row and see what happens. If symptoms persist ENT referral. ----- Message ----- From: Alejandra Mustafa MA Sent: 01/12/2025 8:52 AM EDT To: Femi Ortiz DO ----- Message ----- From: Izzy Rao Sent: 01/09/2025 3:38 PM EDT To: [facility] Clinical Shampoo Person ----- Message from Izzy Rao sent at [...] DO Sent: 01/04/2025 1:31 PM EDT To: [facility] Clinical Shampoo Person CBC normal, glucose and liver function stable. [...] ago. But I also recommending consulting a joggle press operator for an opinion on how to slow [...] Femi Ortiz DO documented in this encounter [facility] 01-12-2025 Telephone encounter Note Placed call to patient. Unable to reach them by phone to discuss lab results. Left detailed message to return call to discuss results. [facility] 01-12-2025 Telephone encounter Note ----- Message from Femi Ortiz DO sent at 01/12/2025 12:30 PM EDT ----- Referred to joggle press operator for elevated creatinine. For his ringing in his ears he could try taking Flonase and Claritin daily for 2 weeks in a row and see what happens. If symptoms persist ENT referral. ----- Message ----- From: Alejandra Mustafa MA Sent: 01/12/2025 8:52 AM EDT To: Femi Ortiz DO ----- Message ----- From: Izzy Rao Sent: 01/09/2025 3:38 PM EDT To: [facility] Clinical Shampoo Person ----- Message from Izzy Rao sent at 01/09/2025 3:38 PM EDT ----- [facility] 01-12-2025 Miscellaneous Notes Placed call to patient. Unable to reach them by phone to discuss lab results. Left detailed message to return call to discuss results. ----- Message from Femi Ortiz DO sent at 01/12/2025 12:30 PM EDT ----- Referred to joggle press operator for elevated creatinine. For his ringing in his ears he could try taking Flonase and Claritin daily for 2 weeks in a row and see what happens. If symptoms persist ENT referral. ----- Message ----- From: Alejandra Mustafa MA Sent: 01/12/2025 8:52 AM EDT To: Femi Ortiz DO ----- Message ----- From: Izzy Rao Sent: 01/09/2025 3:38 PM EDT To: [facility] Clinical Shampoo Person ----- Message from Izzy Rao sent at [...] DO Sent: 01/04/2025 1:31 PM EDT To: [facility] Clinical Shampoo Person CBC normal, glucose and liver function stable. [...] ago. But I also recommending consulting a joggle press operator for an opinion on how to slow [...] Femi Ortiz DO documented in this encounter [facility] 01-09-2025 Telephone encounter Note Message released [...] relayed to the patient from encounter: No [facility] 01-09-2025 Miscellaneous Notes Message released to [...] DO Sent: 01/04/2025 1:31 PM EDT To: [facility] Clinical Shampoo Person CBC normal, glucose and liver function stable. [...] ago. But I also recommending consulting a joggle press operator for an opinion on how to slow [...] Femi Ortiz DO documented in this encounter [facility] 01-05-2025 Telephone encounter Note Placed call to patient. Unable to reach them by phone to discuss lab results. Left detailed message to return call to discuss results. Please release information to patient [facility] 01-05-2025 Telephone encounter Note ----- Message from Alejandra Robertson sent at 01/05/2025 7:16 AM EDT ----- ----- Message ----- From: Femi Ortiz DO Sent: 01/04/2025 1:31 PM EDT To: [facility] Clinical Shampoo Person CBC normal, glucose and liver function stable. [...] ago. But I also recommending consulting a joggle press operator for an opinion on how to slow [...] 4:15 AM EDT To: Femi Ortiz DO [facility] 01-05-2025 Miscellaneous Notes Placed call to patient. Unable to reach them by phone to discuss lab results. Left detailed message to return call to discuss results. Please release information to patient ----- Message from Alejandra Robertson sent at 01/05/2025 7:16 AM EDT ----- ----- Message ----- From: Femi Ortiz DO Sent: 01/04/2025 1:31 PM EDT To: [facility] Clinical Shampoo Person CBC normal, glucose and liver function stable. [...] ago. But I also recommending consulting a joggle press operator for an opinion on how to slow [...] Femi Ortiz DO documented in this encounter [facility] 12-31-2024 History of Presen t illness Narrative Images from the original note were not included. [facility] - [address] [facility] [address] Visit type: Established Patient Reason for [...] Problem Relation Name Age of Onset Other (24681) Mother Meningitis, age 41 Dementia Father Gary age 77 Colon cancer Father Gary 75 Stroke Father Gary Heart disease Sister Maureen No Known Problems Sister Venus Atrial fibrillation Brother [place] Prostate cancer Brother Van 74 Dementia Brother Miki 72 alive age 74 No Known Problems Brother Chintan High Blood Pressure Son Colon cancer Maternal Grandmother No Known Problems Maternal Grandfather all late in life No Known Problems Paternal Grandmother No Known Problems Paternal Grandfather documented in this encounter [facility] 11-11-2024 Telephone encounter Note Sent fax to [facility] at Home at [phone] [facility] 11-11-2024 Miscellaneous Notes Sent fax to [facility] at Home at [phone] documented in this encounter [facility] 10-13-[address] Darrell tom pended for dx and doctor's signature [facility] 10-13-2024 Telephone encounter Note Referral to Dr Miller pended for dx and doctor's signature [facility] 10-13-2024 Miscellaneous Notes Referral to Dr Miller pended for dx and doctor's signature documented in this encounter [facility] 10-13-2024 History of Presen t illness Narrative Images from the original note were not included. [facility] - [address] [facility] [address] Visit type: Established Patient Reason for [...] Abrams is a 74 y.o. male. 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 2024 Telephone encounter Note Recent Visits Date Type Provider Dept 05/29/24 Office Visit Femi Ortiz DO [facility] 01/04/24 Office Visit Femi Ortiz DO [facility] Showing recent visits within past 365 [...] recent labs completed in chart? N/A None [facility] 2024 Miscellaneous Notes Recent Visits Date Type Provider Dept 05/29/24 Office Visit Femi Ortiz DO [facility] 01/04/24 Office Visit Femi Ortiz DO [facility] Showing recent visits within past 365 [...] chart? N/A None documented in this encounter [facility] 05-29-2024 Note Referral pended for doctor's signature [facility] 05-29-2024 Telephone encounter Note Referral pended for doctor's signature [facility] 05-29-2024 Miscellaneous Notes Referral pended for doctor's signature documented in this encounter [facility] 05-29-2024 History of Presen t illness Narrative Images from the original note were not included. [facility] - [address] [facility] [address] Dept: [phone] Dept Chief Complaint: Brando Abrams is an [...] at his req- documented in this encounter [facility] 05-29-2024 Instructions Femi Ortiz DO - 05/29/2024 [...] Recommendations: A preventive eye exam by an auto radiator specialist is recommended every 1-2 years to screen for glaucoma, cataracts, macular degeneration, and other eye disorders. A preventive dental visit is recommended every 6 months. Try to get at least 150 minutes of exercise per week or 10,000 steps per day on a pedometer. You need 1200-1500mg of calcium and [id number] international units of vitamin D per day. [...] or a motorcycle documented in this encounter [facility] 01-04-2024 History of Presen t illness Narrative Images from the original note were not included. [facility] [address] [facility] [address] Visit type: Established Patient Reason for [...] Problem Relation Name Age of Onset Other (34814) Mother Meningitis, age 41 Dementia Father Gary [...] Normal sphincter tone documented in this encounter [facility] 01-04-2024 Instructions Femi Ortiz DO - 01/04/2024 9:00 AM EDT Try to cut down dairy products, fried foods and whole milk. documented in this encounter [facility] 12-05-2023 Telephone encounter Note Images from [...] I year follow-up with me. Thank you [facility] 12-05-2023 Miscellaneous Notes Images from the [...] me. Thank you documented in this encounter [facility] 12-05-2023 History of Presen t illness Narrative [facility] ESTABLISHED PATIENT VISIT 12/05/2023 CHIEF COMPLAINT/REASON FOR REFERRAL: Chief Complaint Patient presents with Sleep Apnea History of Present Illness: Brando Abrams presents for follow up of MERNA. He has newly started treatment with autoCPAP [id number]. HSAT was performed on 09/05/2023. Demonstrated at [...] The patient obtained his CPAP device from [facility]. He is using a nasal pillows interface. [...] DME: HCS at home Using nasal pillows [place] Sleepiness Scale Sitting and reading: Moderate chance [...] confirm treatment efficacy. Will reach out to [facility] again to get device download and to [...] one dtr Suyapa , 11 GC. 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 Overall Financial Resource Strain (CARDIA) Difficulty of Paying Living Expenses: Not hard at all Food Insecurity: No Food Insecurity (01/04/2021) Received from [facility] [employer] [facility] Hunger Vital Sign Worried About Running Out of Food in the Last Year: Never true Ran Out of Food in the Last Year: Never true Transportation Needs: No Transportation Needs (11/24/2019) Received from [facility] [employer] [facility] [employer] [facility] PRAPARE - Transportation Lack of Transportation (Medical): No Lack of Transportation (Non-Medical): No Physical Activity: Sufficiently Active (11/24/2019) Received from [facility] Exercise Vital Sign Days of Exercise per Week: 7 days Minutes of Exercise per Session: 60 min Stress: No Stress Concern Present (11/24/2019) Received from [facility] [employer] [place] [facility] - Occupational Stress Questionnaire Feeling of Stress : Not at all Social Connections: Socially Integrated (11/24/2019) Received from [facility] [employer] [facility] Social Connection and Isolation Panel [NHANES] Frequency of Communication with Friends and Family: Three times a week Frequency of Social Gatherings with Friends and Family: Twice a week Attends [employer]ism Services: More than 4 times per year Active Member of Clubs or Organizations: Yes Attends Club or Organization Meetings: More than 4 times per year Marital Status: Intimate Partner Violence: Not on file Housing Stability: Not on file FamilyHistory Family History Problem Relation Name Age of Onset Other (12639) Mother Meningitis, age 41 Dementia Father Gary age 77 Colon cancer Father Gary 75 Stroke Father Gary No Known Problems Sister Maureen No Known Problems Sister Venus Atrial fibrillation Brother [place] Dementia Brother Miki 72 No Known Problems [...] Narrative Patient Name: BRANDO ABRAMS : 1950 [facility]#: [id number] Exam Date/Time: 04/03/2023 12:04 Procedure: XR CHEST [...] Results: No results found for: FEV1, FVC, [id number], TLC, DLCO No results found for: FEV1, FVC, UTE7VVO, TLC, DLCO documented in this encounter [facility] 10-17-2023 Telephone encounter Note Tests cancelled [facility] 10-17-2023 Miscellaneous Notes Tests cancelled Ok [...] needed anymore 10/16/23 documented in this encounter [facility] 10-16-2023 Telephone encounter Note Ok to cancel? [facility] 10-16-2023 Telephone encounter Note We have been unable to reach your patient to schedule their testing. Test Name: Mri left shoulder without 1st Attempt: sw pt and stated this was already taken care of not needed anymore 10/16/23 [facility] 10-16-2023 Telephone encounter Note We have been unable to reach your patient to schedule their testing. Test Name: exercise stress test 1st Attempt: per patient stated this test isnt needed anymore 10/16/23 [facility] 10-02-2023 History of Presen t illness Narrative Images from the original note were not included. [facility] ESTABLISHED PATIENT VISIT [...] that they are currently in the state [facility]. If the patient is a minor, permission [...] to struggle with frequent nocturnal awakenings. His xnxhiy-ld-jey recently got a new CPAP device. He [...] one dtr Suyapa , 11 GC. 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 documented in this encounter [facility] 08-29-2023 History of Presen t illness Narrative [facility] NEW PATIENT VISIT-PULMONARY 08/29/2023 REFERRING PHYSICIAN: Femi Ortiz DO [address] [place] [address] CHIEF COMPLAINT/REASON FOR REFERRAL: Chief Complaint Patient [...] work. 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 Denies nocturnal awakenings or nocturia. No morning headaches. Does have a dry mouth in the morning. Denies sleepy or drowsy driving. Does nap during the day a few days a week. History is otherwise negative for RLS, limb movements in sleep, dream enactment, parasomnias. [place] Sleepiness Scale Sitting and reading: Moderate chance [...] to severe MERNA including causing/impacting HTN, CVA, UT, arrhythmias, elevated blood sugar levels/DM, hunger/satiety, and [...] Not on file Social History Narrative to [place] , NS or ETOH. Has 2 sons, Moses and Arnaud and one dtr Suyapa , 11 GC. 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 Of note, son Moses now owns [...] Problem Relation Name Age of Onset Other (74860) Mother Meningitis, age 41 Dementia Father Gary age 77 Colon cancer Father Gary 75 Stroke Father Gary No Known Problems Sister Maureen No Known Problems Sister Venus Atrial fibrillation Brother [place] Dementia Brother Miki 72 No Known Problems [...] Narrative Patient Name: BRANDO ABRAMS : 1950 [facility]#: [id number] Exam Date/Time: 04/03/2023 12:04 Procedure: XR CHEST [...] Results: No results found for: FEV1, FVC, AJV8RHS, TLC, DLCO documented in this encounter [facility] 07-05-2023 Telephone encounter Note Referral pended for doctor's signature [facility] 07-05-2023 Miscellaneous Notes Referral pended for doctor's signature documented in this encounter [facility] 07-05-2023 History of Presen t illness Narrative Images from the original note were not included. [facility] [address] [facility] [address] Visit type: Established Patient Reason for [...] Witnessed apneic spells Hypercholesterolemia Comments: Noted, add kiro-pth-icwhxbc Brewers yeast and low-fat meals Orders: - [...] Problem Relation Name Age of Onset Other (59040) Mother Meningitis, age 41 Dementia Father Gary [...] appreciable leg edema documented in this encounter [facility] 04-11-2023 Miscellaneous Notes Orders pended for doctor signature documented in this encounter [facility] 04-11-2023 Telephone encounter Note Orders pended for doctor signature [facility] 04-11-2023 History of Presen t illness Narrative Images from the original note were not included. [facility] [address] [place] [address] [address] [facility] [address] Visit type: Established Patient Reason for [...] Problem Relation Name Age of Onset Other (35952) Mother Meningitis, age 41 Dementia Father Gary [...] Lungs are clear. documented in this encounter [facility] 04-09-2023 Telephone encounter Note Please assist before patient seen. [facility] 04-09-2023 Miscellaneous Notes Please assist before [...] present > 3 days Protocols used: Shoulder [id number] documented in this encounter [facility] 04-09-2023 Telephone encounter Note S Patient [...] present > 3 days Protocols used: Shoulder [id number] [facility] 04-03-2023 History of Presen t illness Narrative Images from the original note were not included. [facility] [address] [place] [address] [address] [facility] [address] Dept: [phone] Dept Loc: [phone] Visit type: Established Patient Reason for Visit: Shoulder Pain Assessment and Plan 1. Chest pain, unspecified type Comments: Acute pain intermittent with radiation to the left shoulder of unclear etiology. Orders: - ECG 12 lead - XR chest 2 views - XR shoulder 2+ views left - Exercise stress test 2. Acute cough Comments: Acute cough suspect secondary to allergens and seasonal encouraged rdll-ptd-xkvueis decongestant such as Flonase Claritin and Robitussin. [...] hypertension, BPH and ED who contacted the [facility] 5 days ago for concerns that he [...] Problem Relation Name Age of Onset Other (85450) Mother Meningitis, age 41 Dementia Father Gary [...] rate of 68 normal axis normal intervals UT interval is 162 QRS duration is 90 [...] prior to signing but minor errors in manager equity may have occurred. documented in this encounter [facility] 03-29-2023 Telephone encounter Note Triage message reviewed with clinical staff. Patient appointment confirmed. PCP will assess at appointment visit. [facility] 03-29-2023 Miscellaneous Notes Triage message reviewed [...] present > 3 days Protocols used: Shoulder [id number] documented in this encounter [facility] 03-29-2023 Telephone encounter Note S: Patient's [...] present > 3 days Protocols used: Shoulder [id number]-[id number]-ME [facility] 12-28-2022 History of Presen t illness Narrative Images from the original note were not included. [facility] [address] [facility] [id number] Visit type: Established Patient Reason for Visit: [...] Brando Abrams is a 72 y.o. male. [facility] hypertension management for patient with history of [...] Problem Relation Name Age of Onset Other (70244) Mother Meningitis, age 41 Dementia Father Gary [...] smooth without nodules. documented in this encounter [facility] 07-24-2022 Telephone encounter Note Rx loaded Last ov 06/22/2022 Next ov 12/28/2022 [facility] 07-24-2022 Miscellaneous Notes Rx loaded Last ov 06/22/2022 Next ov 12/28/2022 Please send to [facility] Medication name: metoprolol succinate (TOPROL XL) 50 [...] medication tab): 01/18/22 Updated/Validated preferred pharmacy: Yes [facility] Patient instructed to contact the pharmacy prior to picking up the medication: Yes documented in this encounter [facility] 07-24-2022 Telephone encounter Note Please send to [facility] Medication name: metoprolol succinate (TOPROL XL) 50 [...] medication tab): 01/18/22 Updated/Validated preferred pharmacy: Yes [facility] Patient instructed to contact the pharmacy prior to picking up the medication: Yes [facility] 07-10-2022 Telephone encounter Note Placed call to patient. Was able to speak to patient. Patient stated the did not check the pulse but will start. All concerns in message have been addressed. [employer] [facility] 07-10-2022 Miscellaneous Notes Placed call to patient. Was able to speak to patient. Patient stated the did not check the pulse but will start. All concerns in message have been addressed. Some of the blood pressure readings are acceptable. Ask patient if he is able to check his pulse as well. Name of caller: Nelia Contact phone number: [phone] Relationship to Patient: spouse/SO Provider: Dr. Khanna Practice: [facility] Chief Complaint/Reason for Call: Nelia calling an states that Dr. Khanna wanted to know the patients Blood Pressure Readings: 138/84, 144/72, 144/80, 136/71, 134/80. Please advise. Best time of day caller can be reached: any Patient advised that office/PCP has 24-48 business hours to return their call: N/A documented in this encounter [facility] [employer] [facility] 07-09-2022 Telephone encounter Note Some of the blood pressure readings are acceptable. Ask patient if he is able to check his pulse as well. [employer] [facility] 07-05-2022 Telephone encounter Note Name of caller: Nelia Contact phone number: [phone] Relationship to Patient: spouse/SO Provider: Dr. Khanna Practice: [facility] Chief Complaint/Reason for Call: Nelia calling an states that Dr. Khanna wanted to know the patients Blood Pressure Readings: 138/84, 144/72, 144/80, 136/71, 134/80. Please advise. Best time of day caller can be reached: any Patient advised that office/PCP has 24-48 business hours to return their call: N/A [facility] 06-27-2022 Telephone encounter Note I called patient [...] as discussed and send in the readings [facility] 06-27-2022 Miscellaneous Notes I called patient because [...] the medication: Yes documented in this encounter [facility] [employer] [facility] 06-27-2022 Telephone encounter Note Rx loaded [facility] [employer] [facility] 06-27-2022 Telephone encounter Note Pt still has [...] prior to picking up the medication: Yes [facility] [employer] [facility] 06-22-2022 History of Presen t illness Narrative [...] of Onset High Blood Pressure Son Other ([id number]) Father 77 dementia Other ([id number]) Mother 41 Meningitis Cancer Father 77 Hx [...] the office unit documented in this encounter [facility] Evaluation note Diagnosis Disorder of kidney [...] and respiratory abnormality [facility] Diagnosis MERNA (obstructive sleep apnea)- Primary Obstructive sleep apnea (adult) (pediatric) documented [facility] Diagnosis MERNA (obstructive sleep apnea)- Primary Obstructive sleep apnea (adult) (pediatric) [facility]* Diagnosis Hypercholesterolemia- Primary Pure hypercholesterolemia Primary hypertension Unspecified essential hypertension MERNA on CPAP Prostate cancer screening Special screening for malignant neoplasm of prostate Family history of cancer Family history of unspecified malignant neoplasm Renal insufficiency Unspecified disorder of kidney and ureter [facility] MERNA (obstructive sleep apnea) Obstructive sleep apnea (adult) (pediatric) documented [facility]* Diagnosis Primary hypertension- Primary Unspecified [...] cancer in father [facility]* Diagnosis Inguinal hernia of left side without obstruction or gangrene- Primary Primary hypertension Unspecified essential hypertension [facility] Diagnosis Inguinal hernia of left side without obstruction or gangrene- Primary [facility] noteNo assessment information availableSt. [facility] Work Phone: Evaluation note* Diagnosis Primary [...] kidney and ureter documented in this [facility]* Diagnosis Primary hypertension- Primary Unspecified essential hypertension Renal insufficiency Unspecified disorder of kidney and ureter [facility] Diagnosis Primary hypertension- Primary Unspecified essential hypertension Renal insufficiency Unspecified disorder of kidney and ureter [facility]* Diagnosis Primary hypertension- Primary Unspecified essential hypertension Renal insufficiency Unspecified disorder of kidney and ureter documented in this encounter [facility] Diagnosis Primary hypertension- Primary Unspecified essential hypertension Renal insufficiency Unspecified disorder of kidney and ureter [facility] Diagnosis Primary hypertension- Primary Unspecified essential hypertension Renal insufficiency Unspecified disorder of kidney and ureter documented in this encounter [facility] for referral (narrative)* Consultation (Routine) - Pending Review Specialty Diagnoses / Procedures Referred By Daniel t Referred To Contact Orthopedic Surgery Diagnoses Traumatic partial tear of left biceps tendon, subsequent encounter Rotator cuff insufficiency, left Internal derangement of shoulder, left Femi Ortiz DO [address] [place] [address] Farshad Kunz MD [address] [address] Referral ID Status Reason Start Date Expiration Date Visits Requested Visits Authorized [id number] Pending Review Specialty Services Required 04/11/2023 04/10/2024 1 1 * Imaging (Routine) - Pending Review Specialty Diagnoses / Procedures Referred By Daniel t Referred To Contact Radiology Diagnoses Traumatic partial tear of left biceps tendon, subsequent encounter Rotator cuff insufficiency, left Internal derangement of shoulder, left Procedures MR shoulder left wo IV contrast Femi Ortiz DO [address] [place] [address] Referral ID Status Reason Start Date Expiration Date V isits Requested Visits Authorized [id number] Pending Review 04/11/2023 04/10/2024 1 1 [facility] for referral (narrative)* Consultation (Routine) - Pending Review Specialty Diagnoses / Procedures Referred By Daniel t Referred To Contact Sleep Medicine Diagnoses Snoring Procedures UT OFFICE/OUTPATIENT NEW HIGH MDM 60 MINUTES Femi Ortiz DO [address] [place] [address] Referral ID Status Reason Start Date Expiration Date Visits Requested Visits Authorized [id number] Pending Review Specialty Services Required 07/05/2023 07/04/2024 1 1 [facility] Consultation (Routine) - Pending Review Specialty Diagnoses / Procedures Referred By Contac t Referred To Contact Gastroenterology Diagnoses Dysphagia, unspecified type Procedures UT OFFICE/OUTPATIENT NEW HIGH MDM 60 MINUTES Femi Ortiz DO [address] [place] [address] Giovanni [address] [place] [phone] Referral ID Status Reason Start Date Expiration Date Visits Requested Visits Authorized [id number] Pending Review Specialty Services Required 07/05/2023 07/04/2024 1 1 [facility]No reason for referral information availableBarnett Medical Services Work Phone: Reason for Referral Status Reason Specialty Diagnoses / Procedures Referre d By Contact Referred To Contact Open Radiology Diagnoses Renal insufficiency Procedures US Renal Limited Celestino Khanna, DO [address] [place] [address] Specialty Diagnoses / Procedures Referred By Contac t Referred To Contact Diagnoses Chest pain, unspecified type Procedures Exercise stress test Cody Butler PA-C [address] [place] [address] Referral ID Status Reason Start Date Expiration Date V isits Requested Visits Authorized [id number] Pending Review 04/03/2023 09/30/2023 1 1 Specialty Diagnoses / Procedures Referred By Contac t Referred To Contact Sleep Medicine Diagnoses MERNA (obstructive sleep apnea) Procedures Home sleep test Parveen Stanley MD [address] [place] [address] [address] [place] [address] Referral ID Status Reason Start Date Expiration Date V isits Requested Visits Authorized [id number] Authorized 08/29/2023 08/23/2024 1 1 Advance Directives No Advanced Directives Records FoundDocuments on File Type Date Recorded 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 Directive ACP[employer] 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 Summary Purpose Family History No Family History Records FoundNo Family History Records FoundNo Family History Records Found Chief Complaint and Reason for Visit Chief Complaint Admit Date INGUINAL HERNIA October 21, 2024 9:03a m Additional Source Comments (unrecognized sect ion and content) No Status Records FoundNo Status Records FoundNo Status Records Found INFORMATION SOURCE (unrecogn ized section and content) DATE CREATED AUTHOR 02/22/2021 [employer] DATE CREATED AUTHOR AUTHOR'S ORGANIZ ATION 01/17/2025 [employer] [facility] DATE CREATED AUTHOR AUTHOR'S ORGANIZ ATION 01/18/2025 [facility] Reason for Visit (unrecogniz ed [...] To Contact Sleep Medicine Diagnoses Snoring Procedures UT OFFICE/OUTPATIENT NEW HIGH MDM 60 MINUTES Femi Ortiz F, DO [address] [place] [address] [facility] [address] [facility] [address] [place] [address] Referral ID Status Reason Start Date Expiration Date Visits Requested Visits Authorized [id number] Pending Review Specialty Services Required 07/05/2023 07/04/2024 1 1 Reason Comments Sleep Apnea Reason Comments Follow-up 6 month Specialty Diagnoses / Procedures Referred By Contrachele simmons Referred To Contact Sleep Medicine Diagnoses MERNA (obstructive sleep apnea) Procedures Home sleep test Parveen Stanley MD [address] [place] [address] [facility] [address] [place] [address] Referral ID Status Reason Start Date Expiration Date Visits Re quested Visits Authorized [id number] Closed 08/29/2023 08/23/2024 1 1 Reason Onset [...] Care Teams (unrecognized sec tion and content) Respite Coordinator Relationship Specialty Start Date End Date Femi Ortiz Lianna DO [address] [place] [address] PCP - General Family Medicine 10/24/22 Respite Coordinator Relationship Specialty Start Date End Date Femi Ortiz Lianna DO [address] [place] [address] PCP - General Family Medicine 10/24/22 Respite Coordinator Relationship Specialty Start Date End Date Femi Ortiz DO [address] [place] [address] PCP - General Family Medicine 10/24/22 Respite Coordinator Relationship Specialty Start Date End Date AngelFemi, DO [address] [place] [address] PCP - General Family Medicine 10/24/22 Respite Coordinator Relationship Specialty Start Date End Date AngelFemi, [address] [place] [address] PCP - General Family Medicine 10/24/22 Respite Coordinator Relationship Specialty Start Date End Date Angel Femi Dsouza, DO [address] [place] [address] PCP - General Family Medicine 10/24/22 Respite Coordinator Relationship Specialty Start Date End Date Angel Femi Dsouza, [address] [place] [address] PCP - General Family Medicine 10/24/22 Respite Coordinator Relationship Specialty Start Date End Date Angel Femi Dsouza, [address] [place] [address] PCP - General Family Medicine 10/24/22 Respite Coordinator Relationship Specialty Start Date End Date Angel Femi Dsouza, [address] [place] [address] PCP - General Family Medicine 10/24/22 Respite Coordinator Relationship Specialty Start Date End Date Angel Femi Dsouza, DO [address] [place] [address] PCP - General Family Medicine 10/24/22 Respite Coordinator Relationship Specialty Start Date End Date Femi Ortiz, DO [address] [place] [address] PCP - General Family Medicine 10/24/22 Respite Coordinator Relationship Specialty Start Date End Date Celestino Khanna, DO [address] [place], [place] [phone] PCP - General 11/09/18 Respite Coordinator Relationship Specialty Start Date End Date Celestino Khanna, DO [address] [place] [phone] PCP - General 11/09/18 Respite Coordinator Relationship Specialty Start Date End Date Celestino Khanna, DO [address] [place], [place] [phone] PCP - General 11/09/18 Respite Coordinator Relationship Specialty Start Date End Date Femi Ortiz, DO [address] [place] [address] PCP - General Family Medicine 10/24/22 Respite Coordinator Relationship Specialty Start Date End Date Femi Ortiz, DO [address] [place] [address] PCP - General Family Medicine 10/24/22 Respite Coordinator Relationship Specialty Start Date End Date Femi Ortiz, DO [address] [place] [address] PCP - General Family Medicine 10/24/22 Respite Coordinator Relationship Specialty Start Date End Date Femi Ortiz, DO [address] [place] [address] PCP - General Family Medicine 10/24/22 Respite Coordinator Relationship Specialty Start Date End Date Femi Ortiz DO [address] [place] [address] PCP - General Family Medicine [...] October 21, 2024 End: October 21, 2024 Respite Coordinator Relationship Specialty Start Date End Date Femi Ortiz DO [address] [place] [address] PCP - General Family Medicine 10/24/22 Respite Coordinator Relationship Specialty Start Date End Date Femi Ortiz DO [address] [place] [address] PCP - General Family Medicine 10/24/22 Respite Coordinator Relationship Specialty Start Date End Date Femi Ortiz DO [address] [place] [address] PCP - General Family Medicine 10/24/22 Respite Coordinator Relationship Specialty Start Date End Date Femi Ortiz DO [address] [place] [address] PCP - General Family Medicine 10/24/22 Respite Coordinator Relationship Specialty Start Date End Date Femi Ortiz DO [address] [facility] [address] [place] [address] PCP - General Family Medicine [...] BE BASED ON THE PRIMARY CLINICAL RECORDS. [facility]. provides no warranty or guarantee of the accuracy or completeness of information in this document.
[2025-01-19] MEDS: Lactated Ringers 1,000 ML 15 ML IV (06:59)
--- NOTE | 2025-01-19 07:14 | PRE.ANES_ITS ---
ASA Classification* ASA Classification ASA Classification: 2 Assessment & Plan Anesthesia* Anesthesia Assessment Anesthesia Assessment: Discussed sedation and/or anesthesia options, risks, benefits, and alternatives with patient/parents/legal guardian/POA. Questions invited. The patient/parents/legal guardian/POA seems to understand and agrees to proceed with anesthesia plan. Reviewed the physical assessment, medical history, allergy history and patient home medications list prior to surgery/procedure/anesthetic and documented any changes. Performed airway and anesthesia risk assessments. Anesthesia Type Anesthesia Type: General History Source History Obtained from:: Patient and Chart Anesthesia Focused Assessment* Temperature: 98.4 F Pulse Rate: 60 Blood Pressure: 138/82 Respiratory Rate: 16 Pulse Ox: 98 Oxygen Delivery Method: Room Air Airway Assessment Mouth opens: >3 cm Mallampati Score: II Teeth Condition: Intact Neck Range of motion (ROM): Full ROM Labs Anesthesia Preop lab: CBC WBC 8.6 K/mm3 (4.4-11.0) 07/11/21 13:15 07/11/21 RBC 4.40 M/mm3 (4.6-6.2) L 07/11/21 13:15 07/11/21 Hgb 13.5 g/dL (13.0-16.5) 07/11/21 13:15 07/11/21 Hct 42.0 % (40-54) 07/11/21 13:15 07/11/21 Plt Count 312 K/mm3 (150-450) 07/11/21 13:15 07/11/21 CHEMISTRY Potassium 4.1 mmol/L (3.5-5.1) 07/11/21 13:15 07/11/21 Sodium 140 mmol/L (136-145) 07/11/21 13:15 07/11/21 BUN 22 mg/dL (7-18) H 07/11/21 13:15 07/11/21 Creatinine 1.61 mg/dL (0.70-1.30) H 07/11/21 13:15 Glucose 155 mg/dL (74-106) H 07/11/21 13:15 07/11/21 COAG Pre-Assessment Diagnosis/Proposed Procedure Planned Operative Procedure(s): ROBOTIC BILATERAL INGUINAL HERNIA WITH MESH Anesthesia History 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 When Was Last Pacemaker Check QUESTION #4 FULL TEXT: You/Your Family Experience fever (hyperthermia) with Anesthesia Last Oral Intake Last Oral intake: Last Oral Intake NPO since 19:00 01/19/25 06:22 Meds taken in AM with sips of No 01/19/25 06:22 water? Meds patient instructed to take am of surgery PONV PONV - restaurant area director: PONV - restaurant area director Female No 01/05/25 13:09 HX of Motion Sickness No 01/05/25 13:09 HX of N/V After Surgery No 01/05/25 13:09 Non-Smoker Yes 01/05/25 13:09 Duration of Surgery greater Yes 01/05/25 13:09 than 60 minutes Number of Risk Factors 2 01/05/25 13:09 PONV Score Moderate Risk 01/05/25 13:09 Height & Weight Height & Weight: Anesthesia: Height & Weight Height 6 ft 01/19/25 06:22 Weight: 100 kg 01/19/25 06:22 Body Mass Index (BMI) 29.9 01/19/25 06:22 Respiratory Assessment Respiratory Assessment - restaurant area director: Respiratory Tract Infection Hx - restaurant area director Hx Respiratory Tract Infection No 01/05/25 13:09 STOP Sleep Apnea STOP Sleep Apnea - restaurant area director: STOP Sleep Apnea - restaurant area director Hx Hypertension Yes: CONTROLLED WITH MEDS 01/05/25 13:09 Hx Sleep Apnea Yes 01/05/25 13:09 CPAP Yes 01/05/25 13:09 BIPAP No 01/05/25 13:09 Do you snore loudly (louder than talking or can be heard Do you often feel tired/ fatigued/ sleepy during daytime? Has anyone observed you stop breathing during sleep? STOP Results Positive 01/05/25 13:09 QUESTION #5 FULL TEXT : Do you snore loudly (louder than talking or can be heard through closed doors)? 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 Specify any problems Hx of Preganancy in last 3 N/A 01/05/25 13:09 Months Nurse Filling Out Transfusion [email or web address] 01/05/25 13:09 & Questions: Date: 01/05/25 01/05/25 13:09 Time: 13:13 01/05/25 13:09 Patient unable to answer at this time (ie. confused, unrespo /Reproduction History /Reproductive History - restaurant area director: /Reproductive Hx- restaurant area director Hx Now Gestational Age (in weeks): EDC: Hx Hx Para Hx Section SAB Active Medications Active Medications: Current Medications Generic Name Dose Route Start Last Admin Trade Name Freq PRN Reason Stop Dose Admin Cefazolin Sodium 2 gm/ Sodium 110 mls @ 200 mls/hr 01/19/25 07:30 Chloride IV 01/19/25 08:02 INTRAOP ONE Lactated Ringer's 1,000 mls @ 15 mls/hr 01/19/25 06:15 01/19/25 06:59 IV 15 mls/hr .Q48H TAWANA Administration PFSH Medical History Wears glasses Injury of head and neck Hypertension History of echocardiogram Gastric reflux Smoker Non-smoker CPAP (continuous positive airway pressure) dependence Sleep apnea Bilateral inguinal hernia without obstruction or gangrene Left inguinal hernia Home Medications ?Medication ?Instructions ?Recorded ?Last Taken ?Type amlodipine 10 mg tablet 10 mg PO QDAY 10/21/2401/18 History metoprolol succinate 50 mg 50 mg PO QDAY 10/21/2401/09 History tablet,extended release 24 hr pantoprazole 40 mg tablet,delayed 40 mg PO QDAY 01/18/25 History release Allergy/AdvReac Type Severity Reaction Status Date / Time No Known Allergies Allergy Verified 01/19/25 06:20 Surgical History H/O umbilical hernia repair Social History Smoking Status: Never smoker alcohol intake: never substance use type: does not use Review of Systems (Anesthesia) ROS Narrative System reviewed and no additional complaints, except as documented. Physical Exam Const alert, oriented x3 and average body habitus Orientation / Consciousness: awake HEENT dentition normal Neck full ROM Resp normal respiratory effort
--- NOTE | 2025-01-19 07:14 | PRE.ANES_ITS ---
ASA Classification* ASA Classification ASA Classification: 2 Assessment & Plan Anesthesia* Anesthesia Assessment Anesthesia Assessment: Discussed sedation and/or anesthesia options, risks, benefits, and alternatives with patient/parents/legal guardian/POA. Questions invited. The patient/parents/legal guardian/POA seems to understand and agrees to proceed with anesthesia plan. Reviewed the physical assessment, medical history, allergy history and patient home medications list prior to surgery/procedure/anesthetic and documented any changes. Performed airway and anesthesia risk assessments. Anesthesia Type Anesthesia Type: General History Source History Obtained from:: Patient and Chart Anesthesia Focused Assessment* Temperature: 98.4 F Pulse Rate: 60 Blood Pressure: 138/82 Respiratory Rate: 16 Pulse Ox: 98 Oxygen Delivery Method: Room Air Airway Assessment Mouth opens: >3 cm Mallampati Score: II Teeth Condition: Intact Neck Range of motion (ROM): Full ROM Labs Anesthesia Preop lab: CBC WBC 8.6 K/mm3 (4.4-11.0) 07/11/21 13:15 07/11/21 RBC 4.40 M/mm3 (4.6-6.2) L 07/11/21 13:15 07/11/21 Hgb 13.5 g/dL (13.0-16.5) 07/11/21 13:15 07/11/21 Hct 42.0 % (40-54) 07/11/21 13:15 07/11/21 Plt Count 312 K/mm3 (150-450) 07/11/21 13:15 07/11/21 CHEMISTRY Potassium 4.1 mmol/L (3.5-5.1) 07/11/21 13:15 07/11/21 Sodium 140 mmol/L (136-145) 07/11/21 13:15 07/11/21 BUN 22 mg/dL (7-18) H 07/11/21 13:15 07/11/21 Creatinine 1.61 mg/dL (0.70-1.30) H 07/11/21 13:15 Glucose 155 mg/dL (74-106) H 07/11/21 13:15 07/11/21 COAG Pre-Assessment Diagnosis/Proposed Procedure Planned Operative Procedure(s): ROBOTIC BILATERAL INGUINAL HERNIA WITH MESH Anesthesia History 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 When Was Last Pacemaker Check QUESTION #4 FULL TEXT: You/Your Family Experience fever (hyperthermia) with Anesthesia Last Oral Intake Last Oral intake: Last Oral Intake NPO since 19:00 01/19/25 06:22 Meds taken in AM with sips of No 01/19/25 06:22 water? Meds patient instructed to take am of surgery PONV PONV - outpatient physical therapist assistant: PONV - outpatient physical therapist assistant Female No 01/05/25 13:09 HX of Motion Sickness No 01/05/25 13:09 HX of N/V After Surgery No 01/05/25 13:09 Non-Smoker Yes 01/05/25 13:09 Duration of Surgery greater Yes 01/05/25 13:09 than 60 minutes Number of Risk Factors 2 01/05/25 13:09 PONV Score Moderate Risk 01/05/25 13:09 Height & Weight Height & Weight: Anesthesia: Height & Weight Height 6 ft 01/19/25 06:22 Weight: 100 kg 01/19/25 06:22 Body Mass Index (BMI) 29.9 01/19/25 06:22 Respiratory Assessment Respiratory Assessment - outpatient physical therapist assistant: Respiratory Tract Infection Hx - outpatient physical therapist assistant Hx Respiratory Tract Infection No 01/05/25 13:09 STOP Sleep Apnea STOP Sleep Apnea - outpatient physical therapist assistant: STOP Sleep Apnea - outpatient physical therapist assistant Hx Hypertension Yes: CONTROLLED WITH MEDS 01/05/25 13:09 Hx Sleep Apnea Yes 01/05/25 13:09 CPAP Yes 01/05/25 13:09 BIPAP No 01/05/25 13:09 Do you snore loudly (louder than talking or can be heard Do you often feel tired/ fatigued/ sleepy during daytime? Has anyone observed you stop breathing during sleep? STOP Results Positive 01/05/25 13:09 QUESTION #5 FULL TEXT : Do you snore loudly (louder than talking or can be heard through closed doors)? 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 Specify any problems Hx of Preganancy in last 3 N/A 01/05/25 13:09 Months Nurse Filling Out Transfusion [email or web address] 01/05/25 13:09 & Questions: Date: 01/05/25 01/05/25 13:09 Time: 13:13 01/05/25 13:09 Patient unable to answer at this time (ie. confused, unrespo /Reproduction History /Reproductive History - outpatient physical therapist assistant: /Reproductive Hx- outpatient physical therapist assistant Hx Now Gestational Age (in weeks): EDC: Hx Hx Para Hx Section SAB Active Medications Active Medications: Current Medications Generic Name Dose Route Start Last Admin Trade Name Freq PRN Reason Stop Dose Admin Cefazolin Sodium 2 gm/ Sodium 110 mls @ 200 mls/hr 01/19/25 07:30 Chloride IV 01/19/25 08:02 INTRAOP ONE Lactated Ringer's 1,000 mls @ 15 mls/hr 01/19/25 06:15 01/19/25 06:59 IV 15 mls/hr .Q48H TAWANA Administration PFSH Medical History Wears glasses Injury of head and neck Hypertension History of echocardiogram Gastric reflux Smoker Non-smoker CPAP (continuous positive airway pressure) dependence Sleep apnea Bilateral inguinal hernia without obstruction or gangrene Left inguinal hernia Home Medications ?Medication ?Instructions ?Recorded ?Last Taken ?Type amlodipine 10 mg tablet 10 mg PO QDAY 10/21/2401/18 History metoprolol succinate 50 mg 50 mg PO QDAY 10/21/2401/09 History tablet,extended release 24 hr pantoprazole 40 mg tablet,delayed 40 mg PO QDAY 01/18/25 History release Allergy/AdvReac Type Severity Reaction Status Date / Time No Known Allergies Allergy Verified 01/19/25 06:20 Surgical History H/O umbilical hernia repair Social History Smoking Status: Never smoker alcohol intake: never substance use type: does not use Review of Systems (Anesthesia) ROS Narrative System reviewed and no additional complaints, except as documented. Physical Exam Const alert, oriented x3 and average body habitus Orientation / Consciousness: awake HEENT dentition normal Neck full ROM Resp normal respiratory effort
--- NOTE | 2025-01-19 07:23 | PCM.HP.STD ---
HPI - General General Date of Admission: 01/19/25 Date of Service: 01/19/25 Chief Complaint: Bilateral inguinal hernia HPI Narrative The patient is a 74-year-old male who is scheduled for a robotic bilateral inguinal hernia repair with mesh. 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 He was doing some heavy lifting recently and noticed a painful bulge in the left groin. He has noticed this for a few weeks. He was seen in the office and bilateral inguinal hernias were noted. I offered him robotic bilateral inguinal hernia repair surgery COUNTS INCLUDE 234 BEDS AT THE [facility] Medical History Wears glasses Injury of head and neck Hypertension History of echocardiogram Gastric reflux Smoker Non-smoker CPAP (continuous positive airway pressure) dependence Sleep apnea Bilateral inguinal hernia without obstruction or gangrene Left inguinal hernia Home Medications ?Medication ?Instructions ?Recorded ?Last Taken ?Type amlodipine 10 mg tablet 10 mg PO QDAY 10/21/24 01/18/25 History metoprolol succinate 50 mg 50 mg PO QDAY 10/21/24 01/18/25 History tablet,extended release 24 hr pantoprazole 40 mg tablet,delayed 40 mg PO QDAY 10/21/24 01/18/25 History release Allergy/AdvReac Type Severity Reaction Status Date / Time No Known Allergies Allergy Verified 01/19/25 06:20 Surgical History H/O umbilical hernia repair Social History Smoking Status: Never smoker alcohol intake: never substance use type: does not use Vital Signs Vital Signs Vital Signs: 01/19/25 06:22 01/19/25 06:22 01/19/25 07:19 Temperature 98.4 F 98.4 F Temperature Source Temporal Pulse Rate 60 60 Respiratory Rate 16 16 Respiratory Pattern Normal Blood Pressure 138/82 H 138/82 H Blood Pressure Mean 100 Blood Pressure Source Monitor Blood Pressure Position Semi-Fowlers Blood Pressure Location Right Arm Pulse Ox 98 98 Oxygen Delivery Method Room Air Room Air Weight Weight: 220 lb 7.396 oz Body Mass Index (BMI) 29.9 Physical Exam Const alert, oriented x3 and no apparent distress Assessment & Plan Assessment/Plan (1) Bilateral inguinal hernia without obstruction or gangrene: PLAN: Plan The patient is a 74-year-old male with bilateral hernias. I have offered him robotic repair with mesh. We discussed the details of the planned procedure and he wishes to proceed. This began momentarily Charges/Coding Multi Select Codes Visit Charges Visit Charges: 90522 Init Hosp L3
--- NOTE | 2025-01-19 07:23 | PCM.HP.STD ---
HPI - General General Date of Admission: 01/19/25 Date of Service: 01/19/25 Chief Complaint: Bilateral inguinal hernia HPI Narrative The patient is a 74-year-old male who is scheduled for a robotic bilateral inguinal hernia repair with mesh. 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 He was doing some heavy lifting recently and noticed a painful bulge in the left groin. He has noticed this for a few weeks. He was seen in the office and bilateral inguinal hernias were noted. I offered him robotic bilateral inguinal hernia repair surgery [facility] Medical History Wears glasses Injury of head and neck Hypertension History of echocardiogram Gastric reflux Smoker Non-smoker CPAP (continuous positive airway pressure) dependence Sleep apnea Bilateral inguinal hernia without obstruction or gangrene Left inguinal hernia Home Medications ?Medication ?Instructions ?Recorded ?Last Taken ?Type amlodipine 10 mg tablet 10 mg PO QDAY 10/21/24 01/18/25 History metoprolol succinate 50 mg 50 mg PO QDAY 10/21/24 01/18/25 History tablet,extended release 24 hr pantoprazole 40 mg tablet,delayed 40 mg PO QDAY 10/21/24 01/18/25 History release Allergy/AdvReac Type Severity Reaction Status Date / Time No Known Allergies Allergy Verified 01/19/25 06:20 Surgical History H/O umbilical hernia repair Social History Smoking Status: Never smoker alcohol intake: never substance use type: does not use Vital Signs Vital Signs Vital Signs: 01/19/25 06:22 01/19/25 06:22 01/19/25 07:19 Temperature 98.4 F 98.4 F Temperature Source Temporal Pulse Rate 60 60 Respiratory Rate 16 16 Respiratory Pattern Normal Blood Pressure 138/82 H 138/82 H Blood Pressure Mean 100 Blood Pressure Source Monitor Blood Pressure Position Semi-Fowlers Blood Pressure Location Right Arm Pulse Ox 98 98 Oxygen Delivery Method Room Air Room Air Weight Weight: 220 lb 7.396 oz Body Mass Index (BMI) 29.9 Physical Exam Const alert, oriented x3 and no apparent distress Assessment & Plan Assessment/Plan (1) Bilateral inguinal hernia without obstruction or gangrene: PLAN: Plan The patient is a 74-year-old male with bilateral hernias. I have offered him robotic repair with mesh. We discussed the details of the planned procedure and he wishes to proceed. This began momentarily Charges/Coding Multi Select Codes Visit Charges Visit Charges: 18077 Init Hosp L3
[2025-01-19] MEDS: Cefazolin 1 GM/5 ML Vial 2 GM IV (07:28)
[2025-01-19] MEDS: Lactated Ringers 1,000 ML 1000 ML IV (07:28)
[2025-01-19] MEDS: Lidocaine 1% (5 ml sdv) 5 ML Vial IV (07:33)
--- NOTE | 2025-01-19 09:34 | DCINST_ITS ---
Discharge Instructions Diet Discharge Diet: Light diet - advance as tolerated Activity Discharge Activity: Return to Normal Activity and May Shower May shower in (days): 1 Ice area for (Minutes): 30 Lifting Restrictions: No lifting pushing or pulling more than 20 pounds for 6 weeks Dressing / Incision Call your doctor if your incision/area has: Continuous Slow Oozing, Sudden Increased Bleeding, Increased Pain/ Swelling, Increased Redness, Foul Smelling Discharge and Swelling at the incision site Call your doctor if you observe: Fever of 101 or Higher Cleanse incision/area with: Soap & Water Follow Up Care Please Follow Up With: Farshad Fields MD When: 2 weeks. Please call office to schedule appointment Test Results: Test results from this visit will be discussed in further detail at your follow- up appointment, if applicable. Discharge Plan Admission Primary Reason for Your Visit: Bilateral inguinal hernia repair Attending Provider: Farshad Fields Primary Care Provider: Femi Ortiz Instructions Print Language: Macedonian Discharge Orders/Prescriptions Prescriptions: New oxycodone 5 mg tablet 5 mg PO Q8H PRN (Reason: pain) 3 Days Qty: 12 0RF Continued pantoprazole 40 mg tablet,delayed release (DR/EC) 40 mg PO QDAY metoprolol succinate 50 mg tablet extended release 24 hr 50 mg PO QDAY amlodipine 10 mg tablet 10 mg PO QDAY Referrals / Follow Up: Femi Ortiz DO [Primary Care Provider] - Disposition Disposition (needs filled in before D/C Order can be placed): Home, Self Care
[2025-01-19] MEDS: Bupiv/Epi 0.25% 30 ML Vial (09:35)
[2025-01-19] MEDS: fentaNYL 100 MCG/2 ML Ampul 200 MCG IV (09:37)
--- NOTE | 2025-01-19 09:37 | PCM.OPRPT ---
Problems Associated Problem List Diagnoses (1) Bilateral inguinal hernia without obstruction or gangrene: Procedures Digestive 40xxx-49xxx: 60248-76 Lap ing hernia repair init; bilat Operative Report (Standard) Operative Information Date of Procedure: 01/19/25 Pre-Operative Diagnosis: Bilateral inguinal hernias Post-Operative Diagnosis: Same Surgery/Procedure Performed: Robotic bilateral inguinal hernia repair with mesh inside technical sales representative: Yes Vp Strategic Partnerships: Lexa Garcia Tasks completed by director of first impressions: Closing, Trocar and Other Additional learning and development assistant?: No Type of Anesthesia: General and Local RN Documented Start/Stop Times: Operation Date: 01/19/25 07:30 Case Time Into Pre-Op 01/19/25 06:01 Out of Pre-Op 01/19/25 07:23 Anesthesia Start 01/19/25 07:28 Into Room 01/19/25 07:28 Procedure Start 01/19/25 07:58 Procedure Start Time: 07:58 Procedure Stop Time: 09:42 Select all DRAINS/GRAFTS/IMPLANTS that apply: Prosthetic device Prosthetic device details: 10 x 15 cm ProGrip mesh x 2 Special Medications: 2 g Ancef IV preop Estimated Blood Loss: 15 mL Specimen collected: No Description of surgery: The patient is a 74-year-old male recently seen through the office with complaints of a left inguinal bulge and pain. On examination he had both a left as well as a right inguinal hernia. The left side was greater than the right. I offered him robotic bilateral inguinal hernia repairs with mesh. We discussed the details of the planned procedure including the risks benefits and alternatives. He wishes to proceed. He was brought to the operating today following informed consent. He was placed supine on the operative table with arms outstretched and arm boards. A general endotracheal anesthesia was induced. Once adequately sedated the arms were comfortably tucked at his side. His abdomen is clipped prepped and draped in the usual sterile manner. An 8 mm incision was made just above the umbilicus which a 5 mm trocar was placed optically. This was placed without incident. Once in place the abdomen is then fully insufflated with CO2 gas. He was placed in mild Trendelenburg positioning. The pelvis was visualized. He indeed had bilateral inguinal hernias. An 8 mm trocar was placed under direct visualization on both the right and the left side of the abdomen. These were placed without difficulty. The original umbilical trocar was switched to an 8 mm robotic trocar as well. The da Della robot was then brought onto the operative field and appropriately docked. The pelvis was visualized. The left-sided hernia was repaired first. This was performed by incising the peritoneum in a medial to lateral direction using curved scissors and electrocautery. A subperitoneal plane was developed down to the level of the Jace's ligament. The hernia sac which was quite large was eventually able to be reduced along with the cord lipoma. Once sufficient dissection was performed a ProGrip 10 x 15 piece of mesh was trimmed to fit the operative field. This was placed in antibiotic solution and laid in position. This covered over the fascial defect nicely. The cord lipoma was returned on top of the mesh and then the peritoneum was then closed using a 3 oh V-Loc suture in a running manner. This closed the peritoneum nicely. The right sided hernia was then repaired in a similar way by incising the peritoneum in a lateral to medial direction again using scissors and electrocautery. Again a subperitoneal plane was developed down to the level of the Jace's ligament. The cord structures were off of the hernia sac and the hernia sac was reduced. Once sufficient dissection was performed to reduce the hernia the 10 x 15 ProGrip mesh was trimmed to size and inserted. This laid nicely. The peritoneum was then closed using 3-0 V-Loc suture. This closed the peritoneum nicely. The trocars were removed. Insufflation was allowed to escape. 4-0 Vicryl was used to close the skin incisions. Local anesthetic was utilized during the course of the operation. He was awakened anesthesia and taken recovery in good condition. Surgical Findings: Bilateral inguinal hernia. Left side larger than right Complications Complications: No Admit VTE Documentation VTE Present on Admission: No VTE Mechan Device Prophylaxis: SCD's VTE Pharm Prophylaxis ordered?: No Reason prophylaxis not ordered: Treatment Not Indicated
--- NOTE | 2025-01-19 09:37 | PCM.OPRPT ---
Problems Associated Problem List Diagnoses (1) Bilateral inguinal hernia without obstruction or gangrene: Procedures Digestive 40xxx-49xxx: 00412-57 Lap ing hernia repair init; bilat Operative Report (Standard) Operative Information Date of Procedure: 01/19/25 Pre-Operative Diagnosis: Bilateral inguinal hernias Post-Operative Diagnosis: Same Surgery/Procedure Performed: Robotic bilateral inguinal hernia repair with mesh scoop driver: Yes Sock Ironer: Lexa aGrcia Tasks completed by heel sprayer first: Closing, Trocar and Other Additional assistant service manager?: No Type of Anesthesia: General and Local RN Documented Start/Stop Times: Operation Date: 01/19/25 07:30 Case Time Into Pre-Op 01/19/25 06:01 Out of Pre-Op 01/19/25 07:23 Anesthesia Start 01/19/25 07:28 Into Room 01/19/25 07:28 Procedure Start 01/19/25 07:58 Procedure Start Time: 07:58 Procedure Stop Time: 09:42 Select all DRAINS/GRAFTS/IMPLANTS that apply: Prosthetic device Prosthetic device details: 10 x 15 cm ProGrip mesh x 2 Special Medications: 2 g Ancef IV preop Estimated Blood Loss: 15 mL Specimen collected: No Description of surgery: The patient is a 74-year-old male recently seen through the office with complaints of a left inguinal bulge and pain. On examination he had both a left as well as a right inguinal hernia. The left side was greater than the right. I offered him robotic bilateral inguinal hernia repairs with mesh. We discussed the details of the planned procedure including the risks benefits and alternatives. He wishes to proceed. He was brought to the operating today following informed consent. He was placed supine on the operative table with arms outstretched and arm boards. A general endotracheal anesthesia was induced. Once adequately sedated the arms were comfortably tucked at his side. His abdomen is clipped prepped and draped in the usual sterile manner. An 8 mm incision was made just above the umbilicus which a 5 mm trocar was placed optically. This was placed without incident. Once in place the abdomen is then fully insufflated with CO2 gas. He was placed in mild Trendelenburg positioning. The pelvis was visualized. He indeed had bilateral inguinal hernias. An 8 mm trocar was placed under direct visualization on both the right and the left side of the abdomen. These were placed without difficulty. The original umbilical trocar was switched to an 8 mm robotic trocar as well. The da Della robot was then brought onto the operative field and appropriately docked. The pelvis was visualized. The left-sided hernia was repaired first. This was performed by incising the peritoneum in a medial to lateral direction using curved scissors and electrocautery. A subperitoneal plane was developed down to the level of the Jace's ligament. The hernia sac which was quite large was eventually able to be reduced along with the cord lipoma. Once sufficient dissection was performed a ProGrip 10 x 15 piece of mesh was trimmed to fit the operative field. This was placed in antibiotic solution and laid in position. This covered over the fascial defect nicely. The cord lipoma was returned on top of the mesh and then the peritoneum was then closed using a 3 oh V-Loc suture in a running manner. This closed the peritoneum nicely. The right sided hernia was then repaired in a similar way by incising the peritoneum in a lateral to medial direction again using scissors and electrocautery. Again a subperitoneal plane was developed down to the level of the Jace's ligament. The cord structures were off of the hernia sac and the hernia sac was reduced. Once sufficient dissection was performed to reduce the hernia the 10 x 15 ProGrip mesh was trimmed to size and inserted. This laid nicely. The peritoneum was then closed using 3-0 V-Loc suture. This closed the peritoneum nicely. The trocars were removed. Insufflation was allowed to escape. 4-0 Vicryl was used to close the skin incisions. Local anesthetic was utilized during the course of the operation. He was awakened anesthesia and taken recovery in good condition. Surgical Findings: Bilateral inguinal hernia. Left side larger than right Complications Complications: No Admit VTE Documentation VTE Present on Admission: No VTE Mechan Device Prophylaxis: SCD's VTE Pharm Prophylaxis ordered?: No Reason prophylaxis not ordered: Treatment Not Indicated
--- NOTE | 2025-01-19 09:59 | PCM.POST.ANE ---
Anesthesia: Postop Eval I Current Vital Signs Temperature: 97.2 F Pulse Rate: 75 Blood Pressure: 128/74 Respiratory Rate: 16 Pulse Ox: 92 Oxygen Delivery Method: Room Air Assessment Airway patent: Yes Spontaneous unlabored respirations: Yes Mental status: Asleep nausea: No Vomiting: No Anesthesia Complication: No Fluid Hydration Crystalloid volume administer (ml): 1,000 Total IV fluid infused: 1,000 Progress Note Anesthesia document: Postop Eval 1 completed: Yes
--- NOTE | 2025-01-19 11:16 | POSTOPAN2_ITS ---
Anesthesia Postop Eval I Sum Postop Eval Completion status Anesthesia document: Postop Eval 1 completed: Yes Anesthesia Postop Eval I Summary Anesthesia Postop Eval I Summary: Anesthesia Postop Eval I: Assessment Summary Airway patent Yes 01/19/25 10:00 MOTOR VEHICLE EXAMINER.JDEF Spontaneous unlabored Yes 01/19/25 10:00 MOTOR VEHICLE EXAMINER.JDEF respirations Mental status Asleep 01/19/25 10:00 MOTOR VEHICLE EXAMINER.JDEF nausea No 01/19/25 10:00 MOTOR VEHICLE EXAMINER.JDEF Vomiting No 01/19/25 10:00 MOTOR VEHICLE EXAMINER.JDEF Anesthesia Postop Eval I: Fluid Summary Crystalloid volume administer 1,000 01/19/25 10:00 MOTOR VEHICLE EXAMINER.JDEF (ml) Colloids volume administered ( ml) Blood Product volume administered (ml) Total IV fluid infused 1,000 01/19/25 10:00 MOTOR VEHICLE EXAMINER.JDEF Anesthesia Postop Eval I: Summary Notes Anesthesia Complication No 01/19/25 10:00 MOTOR VEHICLE EXAMINER.JDEF Anesthesia Complication Comment: Post-operative progress note Anesthesia: Postop Eval II Evaluation Mental status: Awake Pain Level: 0 nausea: No Vomiting: No
--- NOTE | 2025-01-19 11:16 | POSTOPAN2_ITS ---
Anesthesia Postop Eval I Sum Postop Eval Completion status Anesthesia document: Postop Eval 1 completed: Yes Anesthesia Postop Eval I Summary Anesthesia Postop Eval I Summary: Anesthesia Postop Eval I: Assessment Summary Airway patent Yes 01/19/25 10:00 STONE [email or web address] Spontaneous unlabored Yes 01/19/25 10:00 STONE GLUER.JDEF respirations Mental status Asleep 01/19/25 10:00 STONE GLUER.JDEF nausea No 01/19/25 10:00 STONE GLUER.JDEF Vomiting No 01/19/25 10:00 STONE GLUER.JDEF Anesthesia Postop Eval I: Fluid Summary Crystalloid volume administer 1,000 01/19/25 10:00 STONE GLUER.JDEF (ml) Colloids volume administered ( ml) Blood Product volume administered (ml) Total IV fluid infused 1,000 01/19/25 10:00 STONE GLUER.JDEF Anesthesia Postop Eval I: Summary Notes Anesthesia Complication No 01/19/25 10:00 STONE GLUER.JDEF Anesthesia Complication Comment: Post-operative progress note Anesthesia: Postop Eval II Evaluation Mental status: Awake Pain Level: 0 nausea: No Vomiting: No
--- NOTE | 2025-01-19 11:16 | PCM.POSTANE2 ---
Anesthesia Postop Eval I Sum Postop Eval Completion status Anesthesia document: Postop Eval 1 completed: Yes Anesthesia Postop Eval I Summary Anesthesia Postop Eval I Summary: Anesthesia Postop Eval I: Assessment Summary Airway patent Yes 01/19/25 10:00 MANAGER ASSURANCE.JDEF Spontaneous unlabored Yes 01/19/25 10:00 MANAGER ASSURANCE.JDEF respirations Mental status Asleep 01/19/25 10:00 MANAGER ASSURANCE.JDEF nausea No 01/19/25 10:00 MANAGER ASSURANCE.JDEF Vomiting No 01/19/25 10:00 MANAGER ASSURANCE.JDEF Anesthesia Postop Eval I: Fluid Summary Crystalloid volume administer 1,000 01/19/25 10:00 MANAGER ASSURANCE.JDEF (ml) Colloids volume administered ( ml) Blood Product volume administered (ml) Total IV fluid infused 1,000 01/19/25 10:00 MANAGER ASSURANCE.JDEF Anesthesia Postop Eval I: Summary Notes Anesthesia Complication No 01/19/25 10:00 MANAGER ASSURANCE.JDEF Anesthesia Complication Comment: Post-operative progress note Anesthesia: Postop Eval II Evaluation Mental status: Awake Pain Level: 0 nausea: No Vomiting: No
--- NOTE | 2025-01-19 11:16 | PCM.POSTANE2 ---
Anesthesia Postop Eval I Sum Postop Eval Completion status Anesthesia document: Postop Eval 1 completed: Yes Anesthesia Postop Eval I Summary Anesthesia Postop Eval I Summary: Anesthesia Postop Eval I: Assessment Summary Airway patent Yes 01/19/25 10:00 PLANT ATTENDANT OR ASSISTANT OPERATOR.JDEF Spontaneous unlabored Yes 01/19/25 10:00 PLANT ATTENDANT OR ASSISTANT OPERATOR.JDEF respirations Mental status Asleep 01/19/25 10:00 PLANT ATTENDANT OR ASSISTANT OPERATOR.JDEF nausea No 01/19/25 10:00 PLANT ATTENDANT OR ASSISTANT OPERATOR.JDEF Vomiting No 01/19/25 10:00 PLANT ATTENDANT OR ASSISTANT OPERATOR.JDEF Anesthesia Postop Eval I: Fluid Summary Crystalloid volume administer 1,000 01/19/25 10:00 PLANT ATTENDANT OR ASSISTANT OPERATOR.JDEF (ml) Colloids volume administered ( ml) Blood Product volume administered (ml) Total IV fluid infused 1,000 01/19/25 10:00 PLANT ATTENDANT OR ASSISTANT OPERATOR.JDEF Anesthesia Postop Eval I: Summary Notes Anesthesia Complication No 01/19/25 10:00 PLANT ATTENDANT OR ASSISTANT OPERATOR.JDEF Anesthesia Complication Comment: Post-operative progress note Anesthesia: Postop Eval II Evaluation Mental status: Awake Pain Level: 0 nausea: No Vomiting: No
== END 2025-01-19 12:38 | disposition home or self-care (01) ==
LOC: SDC 05:56 → AC 05:56
PROVIDERS: PCP Family Medicine; Referring Provider Surgery; Visit Provider Surgery
PROC: (CPT 49650; principal; 2025-01-19 07:10)
DX: K40.20 Bilateral inguinal hernia, without obstruction or gangrene, not specified as recurrent (principal); Z79.899 Other long term (current) drug therapy; K21.9 Gastro-esophageal reflux disease without esophagitis; I10 Essential (primary) hypertension; Z99.89 Dependence on other enabling machines and devices; G47.30 Sleep apnea, unspecified
CPT/HCPCS: 49650; S2900; 00840; C1781; J2405